=== PATIENT | female | born 1955 | race Caucasian/White ===

== ENCOUNTER → 2018-06-30 07:57 | Outpatient (CLI) | payer OTHER, SELFPAY ==
[2018-06-30 09:51] LABS: Add Manual Diff / Slide Review NO; Basophils Percent Auto 0.8 % (0-2); Hemoglobin 14.6 g/dL (12.0-16.0); Lymphocytes Percent Auto 20.7 % (25-40); Mean Corpuscular HGB Conc 34.1 % (30-36); Mean Corpuscular Hemoglobin 31.8 PG (26-34); Mean Corpuscular Volume 93.4 fL (80-100); Monocytes Percent Auto 6.3 % (3-14); Neutrophils Absolute Auto 4600 /uL (3000-5900); Neutrophils Percent Auto 70.2 % (50-75); Platelet Count 288 X10^3/uL (150-400); White Blood Cell Count 6.6 X10^3/uL (4.5-11.0)
[2018-06-30 10:06] LABS: Alanine Aminotransferase 25 IU/L (9-52); Albumin Globulin Ratio 1.5 (1.0-2.8); Alkaline Phosphatase 66 U/L (38-126); Aspartate Aminotransferase 27 IU/L (14-36); BUN Creatinine Ratio 21.3 (6-22); Bilirubin Total 0.4 mg/dL (0.2-1.3); Blood Urea Nitrogen 17 mg/dL (7-17); Calcium 9.2 mg/dL (8.4-10.2); Carbon Dioxide 31 mmol/L (22-32); Chloride 104 mmol/L (98-107); Cholesterol 184 mg/dL (140-199); Estimated Glomerular Filt Rate > 60.0 mL/min (>60); Globulin 2.6 g/dL (1.7-4.1); Glucose 85 mg/dL (80-110); HDL Cholesterol 47 mg/dL (40-60); HEMOLYSIS < 15 (0-50); LDL Cholesterol Calculated 124 mg/dL (<100); Potassium 4.3 mmol/L (3.4-5.1); Sodium 141 mmol/L (137-145); Total Protein 6.6 g/dL (6.3-8.2); Triglycerides 63 mg/dL (35-150)
[2018-06-30 11:02] LABS: Free T4, Direct Thyroxine 1.02 ng/dL (0.78-2.19)
[2018-06-30 11:16] LABS: Thyroid Stimulating Hormone 1.34 uIU/mL (0.47-4.68)
== END ==
PROVIDERS: Physician Assistant; Family Provider Family Medicine; PCP Family Medicine; Visit Provider Family Medicine
DX: E03.9 Hypothyroidism, unspecified (principal); E78.5 Hyperlipidemia, unspecified; Z00.00 Encounter for general adult medical examination without abnormal findings
CPT/HCPCS: 36415; 80053; 80061; 84439; 84443; 85025

== ENCOUNTER 2018-09-01 07:59 | Day surgery (SDC) | payer OTHER, SELFPAY ==
[2018-09-01] VITALS (8 sets, daily range): BP systolic 92–120; BP diastolic 56–69; PULSE 60–73; RESP 13–18; TEMP 35.9–36.8; O2SAT 95–99; BMI 22.4
--- NOTE | 2018-09-01 | PATH_ITS ---
[facility] Accession Number: [id number] . 01 Material submitted: . CECAL POLYP X2 . 02 Diagnosis: Cecum, Polyps x2, Biopsy: Tubular adenoma. Sessile serrated adenoma. V/09/02/2018 . 02 Electronically signed: . Anny Gottlieb MD, Pathologist NPI- [id number] . 01 Gross description: . Received one formalin-filled container labeled with the patient's name and labeled cecal polyps x2. The specimen consists of two 0.3 to 0.5 cm portions of tissue. Entirely submitted in one cassette. ([facility] [place][id number]) /[facility] . 02 Pathologist provided ICD-10: D12.0 . 02 CPT . 641292 Specimen Comment: A duplicate report has been generated due to demographic updates. Performed at: 01 [facility] [address] [id number] MD Dung Zelaya MD Phone: [phone] Performed at: 02 [facility] [address] [place] [id number] MD Tong Barone MD Phone: [phone]
--- NOTE | 2018-09-01 08:14 | P.HP_ITS ---
History of Present Illness Date Patient Seen: 09/01/18 Chief complaint: colonoscopy [id number] Narrative: 62-year-old female who is here for colon polyp surveillance. The patient last had a colonoscopy 03/16/2009 at [facility] which revealed 2 tubular adenomas. She has a history of hypothyroidism otherwise no active GI issues Patient History Family & Social History Tobacco & Substance use: Smoking Status Never smoker alcohol intake never Meds Home Medications Medication Instructions Recorded Confirmed Type ASPIRIN (Aspirin EC) 81 mg PO #0 04/17/11 07/26/18 History FOLIC ACID/VIT A/VIT B1/VIT 1 tab PO Q DAY #0 04/17/11 07/26/18 History (#MULTIVITAMIN) levothyroxine [Levoxyl] 0.05 mg PO QDAY #90 tab 03/31/18 07/26/18 Rx vitamin b12 PO 05/05/18 07/26/18 History citalopram 40 mg tablet 40 mg PO QDAY #30 tab 06/24/18 07/26/18 Rx Allergies Allergy/AdvReac Type Severity Reaction Status Date / Time azithromycin [AZITHROMYCIN] Allergy Severe angioedema Verified 07/26/18 09:34 Review of Systems Review of Systems All systems reviewed & are unremarkable except as noted in HPI and below Exam Narrative Exam Narrative: General: Patient is well developed, not in apparent distress Cardiovascular: Regular rate and rhythm, no murmurs, rubs, or gallops; no evidence of edema; no palpable abdominal aortic aneurysm Gastrointestinal: Normoactive bowel sounds, soft, nontender, nondistended, no rebound tenderness, no hepatosplenomegaly, no evidence of hernia Assessment & Plan Plan: Assessment/Plan Narrative: 62-year-old female with hypothyroidism who is here for colon polyp surveillance after last colonoscopy in 2008 showed 2 tubular adenomas. No family history of colon cancer. Regarding the procedure(s), the risks and potential complications, benefits, and alternatives (including not doing the procedure) were discussed with the patient. The risks include but are not limited to bleeding, infection, perforation which may require surgical intervention, missed lesions, and adverse reactions to sedative medicines. After a question and answer period, the patient agreed to proceed with the procedure(s) and gives informed consent.
[2018-09-01] MEDS: SODIUM CHLORIDE 0.9% 1,000 ML 70 ML IV (08:28)
--- NOTE | 2018-09-01 08:53 | PM.OP.ENDO ---
Operative Date/Time/Diagnoses Date of procedure: 09/01/18 Procedure Notes Procedure in detail: Surgeon: Get Ortiz MD Procedure: Colonoscopy with polypectomy Preoperative diagnosis: Colon polyp surveillance; prior colonoscopy 2008 showed tubular adenomas Postoperative diagnosis: Colon polyps status post polypectomy, sigmoid diverticulosis, grade 1 internal hemorrhoids Medications: Conscious sedation using 4 mg IV of Midazolam and 150 mcg IV of Fentanyl Preanesthesia Assessment An H and P was performed/updated and the Px?s ASA class is 2. The procedure was discussed in detail with the patient. The potential risks and complications including infection, bleeding, missed lesions, perforation, need for surgery in case of perforation, prolonged hospital stay, and were explained. A brief question and answer period was allotted and once all questions were answered, informed consent was obtained. The patient was brought back to the procedure room and placed on standard monitoring. The patient?s vital signs were monitored continuously throughout the entire procedure. Prior to starting, a timeout was performed to confirm the patient?s identity, allergies, medications, and procedure. Procedure in detail The patient was placed in left lateral decubitus position and once adequate sedation was obtained a ALEJANDRO was performed. The digital rectal examination did not reveal any palpable lesions. The tip of the colonoscope was placed in the anal canal and advanced without difficulty all the way to the cecum which was identified by the appendiceal orifice and the ileocecal valve. Careful examination of all martinez of the colon was performed with irrigation of a residual stool In the cecum, there was note of a 5 mm sessile polyp which was removed by means of cold snare. Excision and retrieval were complete with minimal bleeding. In the cecum, there was note of a 2 mm sessile polyp which was removed by means of cold Jumbo forceps. Excision and retrieval were complete with minimal bleeding. In the sigmoid colon, there was note of few small diverticula. Retroflexion was performed in the rectum which revealed grade 1 internal hemorrhoids. The patient tolerated the procedure well and will be brought back to the recovery area to be discharged once criteria are met. The prep was judged to be good and adequate to identify polyps less than 5 mm. The withdrawal time was 10 min. The total physician intraservice time was 18 min. Complications There were no complications and estimated blood loss was minimal. Recommendations: Resume previous diet Continue outPx medications Follow up pathology results Repeat colonoscopy in 5 years An emergency contact number was given to the patient for any complications related to the procedure
[2018-09-01] MEDS: fentaNYL 250 MCG/5 ML INJ IV (09:09)
[2018-09-01] MEDS: MIDAZOLAM 5 MG/5 ML VIAL IV (09:10)
--- NOTE | 2018-09-01 09:21 | P.DS_ITS ---
History of Present Illness Chief complaint: colonoscopy [id number] Narrative: 62-year-old female who is here for colon polyp surveillance. The patient last had a colonoscopy 03/16/[address] [facility] which revealed 2 tubular adenomas. She has a history of hypothyroidism otherwise no active GI issues Discharge Providers Primary care physician: Lakeisha Truong DO Discharge provider: Get Ortiz MD Exam Vital Signs (past 8 hours): - 09/01/18 08:30 09/01/18 09:13 Temperature 98.2 F 97.2 F L Pulse Rate 69 73 Respiratory Rate 15 15 Blood Pressure 111/69 96/60 Pulse Oximetry 98 95 Oxygen Delivery Method Room Air Narrative Exam Narrative: General: Patient is well developed, not in apparent distress Cardiovascular: Regular rate and rhythm, no murmurs, rubs, or gallops; no evidence of edema; no palpable abdominal aortic aneurysm Gastrointestinal: Normoactive bowel sounds, soft, nontender, nondistended, no rebound tenderness, no hepatosplenomegaly, no evidence of hernia Discharge Plan Discharge Plan Patient Disposition: Home Discharge Med Rec/Prescriptions Prescriptions: Continue vitamin b12 PO RF: 0 ASPIRIN (Aspirin EC) 81 mg PO Qty: 0 RF: 0 FOLIC ACID/VIT A/VIT B1/VIT (#MULTIVITAMIN) 1 tab PO Q DAY Qty: 0 RF: 0 levothyroxine [Levoxyl] 50 mcg tablet 0.05 mg PO QDAY Qty: 90 RF: 2 citalopram [Celexa] 40 mg tablet 40 mg PO QDAY Qty: 30 RF: 3 Discharge Orders: Discharge (Order); Ordered 09/01/18 Ordered By: Get Ortiz Provider Discharge Instructions Diet: Diet as Tolerated Visit Report/Discharge Packet Stand Alone Forms: Surgery Discharge Discharge Data Primary Care Provider: Lakeisha Truong Attending Provider: Get Ortiz
== END 2018-09-01 10:51 | disposition home or self-care (01) ==
PROVIDERS: PCP Family Medicine; Visit Provider Internal Medicine Gastroenterology
PROC: 0DJD8ZZ Inspection of Lower Intestinal Tract, Via Natural or Artificial Opening Endoscopic (ICD-10-PCS; CPT 45378; principal; 2018-09-01 09:00)
DX: Z86.010 Personal history of colon polyps (principal); K57.30 Diverticulosis of large intestine without perforation or abscess without bleeding; K64.0 First degree hemorrhoids; D12.0 Benign neoplasm of cecum
CPT/HCPCS: 45385; 45380; J2250; J3010

== ENCOUNTER → 2018-09-03 07:10 | Outpatient (CLI) | payer OTHER, SELFPAY ==
--- NOTE | 2018-09-03 | DI.MG.S_ITS ---
BILATERAL DIGITAL SCREENING MAMMOGRAM 3D/2D WITH CAD POST LUMPECTOMY: 09/03/2018 CLINICAL: Routine screening. Personal history of right breast cancer. Comparison is made to exams dated: 02/20/2017 mammogram, 06/13/2015 mammogram, and 06/12/2014 mammogram - [facility]. The tissue of both breasts is heterogeneously dense. This may lower the sensitivity of mammography. Current study was also evaluated with a Computer Aided Detection (CAD) system. There are benign post operative findings in the right breast. No significant masses, calcifications, or other findings are seen in either breast. There has been no significant interval change. IMPRESSION: There is no mammographic evidence of malignancy. A 1 year screening mammogram is recommended.(09/04/2019) This exam was interpreted at Station ID: [id number]. NOTE: For mammograms, a report in lay terms will be sent to the patient. Approximately 15% of breast malignancies will not be visualized mammographically. In the management of a palpable breast mass, a negative mammogram must not discourage biopsy of a clinically suspicious lesion. Electronically Signed By: Vane camarillo/wellington:09/03/2018 15:13:16 copy to: LOU PACE letter sent: Normal Exam ACR BI-RADS Category 2: Benign Finding(s) 3342F
== END ==
PROVIDERS: PCP Family Medicine; Visit Provider Family Medicine
DX: Z12.31 Encounter for screening mammogram for malignant neoplasm of breast (principal); Z85.3 Personal history of malignant neoplasm of breast
CPT/HCPCS: 77063; 77067

== ENCOUNTER → 2019-07-12 09:27 | Outpatient (CLI) | payer OTHER, SELFPAY ==
[2019-07-12 10:04] LABS: Add Manual Diff / Slide Review NO; Basophils Absolute Auto 100 /uL (0-100); Eosinophils Absolute Auto 100 /uL (0-450); Hematocrit 43.4 % (36-46); Hemoglobin 14.7 g/dL (12.0-16.0); Lymphocytes Absolute Auto 1400 /uL (1100-4500); Lymphocytes Percent Auto 27.5 % (25-40); Mean Corpuscular HGB Conc 33.7 % (30-36); Mean Corpuscular Hemoglobin 31.5 PG (26-34); Mean Corpuscular Volume 93.3 fL (80-100); Monocytes Absolute Auto 400 /uL (0-900); Monocytes Percent Auto 7.1 % (3-14); Neutrophils Absolute Auto 3200 /uL (1500-7000); Neutrophils Percent Auto 62.4 % (50-75); Platelet Count 282 X10^3/uL (150-400); Red Blood Cell Count 4.66 X10^6/uL (4.0-5.2); Red Cell Distribution Width 13.1 % (11.6-14.8); White Blood Cell Count 5.1 X10^3/uL (4.5-11.0)
[2019-07-12 10:17] LABS: Appearance Urine UA CLEAR; Bilirubin Urine UA NEGATIVE (NEGATIVE); Color Urine UA YELLOW; Glucose Urine UA NEGATIVE (Negative); Ketones Urine UA NEGATIVE (NEGATIVE); Leukocyte Esterase Urine UA NEGATIVE (NEGATIVE); Nitrite Urine UA NEGATIVE (Negative); Occult Blood Urine UA TRACE-LYSED (Negative); Protein Urine UA TRACE (Negative); Specific Gravity Urine UA 1.015 (1.000-1.035); Urobilinogen Urine UA 0.2 E.U./dL (0.2)
[2019-07-12 10:29] LABS: Alanine Aminotransferase 18 IU/L (9-52); Albumin Globulin Ratio 1.4 (1.0-2.8); Alkaline Phosphatase 66 U/L (38-126); Aspartate Aminotransferase 31 IU/L (14-36); BUN Creatinine Ratio 18.8 (6-22); Bilirubin Total 0.3 mg/dL (0.2-1.3); Blood Urea Nitrogen 15 mg/dL (7-17); Calcium 9.2 mg/dL (8.4-10.2); Carbon Dioxide 30 mmol/L (22-32); Chloride 104 mmol/L (98-107); Cholesterol 221 mg/dL (140-199); Estimated Glomerular Filt Rate > 60.0 mL/min (>60); Globulin 2.9 g/dL (1.7-4.1); Glucose 100 mg/dL (80-110); HDL Cholesterol 56 mg/dL (40-60); HEMOLYSIS < 15 (0-50); LDL Cholesterol Calculated 152 mg/dL (<100); Potassium 4.4 mmol/L (3.4-5.1); Sodium 138 mmol/L (137-145); Total Protein 6.9 g/dL (6.3-8.2); Triglycerides 66 mg/dL (35-150)
[2019-07-12 11:38] LABS: Free T4, Direct Thyroxine 0.84 ng/dL (0.78-2.19)
[2019-07-12 11:52] LABS: Thyroid Stimulating Hormone 1.27 uIU/mL (0.47-4.68)
== END ==
PROVIDERS: PCP Family Medicine; Visit Provider Family Medicine
DX: E03.9 Hypothyroidism, unspecified (principal); Z13.220 Encounter for screening for lipoid disorders; Z51.81 Encounter for therapeutic drug level monitoring
CPT/HCPCS: 36415; 80053; 80061; 81003; 84439; 84443; 84481; 85025

== ENCOUNTER → 2019-09-05 15:01 | Outpatient (CLI) | payer OTHER, SELFPAY | PROVIDERS: PCP Family Medicine; Visit Provider Family Medicine | DX: Z12.31 Encounter for screening mammogram for malignant neoplasm of breast (principal); Z53.9 Procedure and treatment not carried out, unspecified reason ==

== ENCOUNTER → 2019-09-19 09:59 | Outpatient (CLI) | payer OTHER, SELFPAY ==
--- NOTE | 2019-09-19 10:02 | DI.MG.S_ITS ---
BILATERAL DIGITAL DIAGNOSTIC MAMMOGRAM 3D/2D POST LUMPECTOMY: 09/19/2019 CLINICAL: Referring clinical provider's requisition states breast lump but does not specify a specific area of the breast. Patient cannot feel the lump herself and is not sure where the reported palpable breast lump is located, but believes it was in the upper outer quadrant of the right breast. Comparison is made to exams dated: 09/03/2018 mammogram, 02/20/2017 mammogram, and 06/13/2015 mammogram - [facility]. The tissue of both breasts is heterogeneously dense. This may lower the sensitivity of mammography. Referring clinical provider's requisition states breast lump but does not specify a specific area of the breast. Patient cannot feel the lump herself and is not sure where the reported palpable breast lump is located, but believes it was in the upper outer quadrant of the right breast. There are postsurgical changes of the medial right breast. There is no convincing suspicious mass or abnormality of the upper outer right breast on mammography. There are bilateral vascular calcifications. No other significant masses, calcifications, or other findings are seen in either breast. IMPRESSION: INCOMPLETE: NEEDS ADDITIONAL IMAGING EVALUATION Postsurgical changes of the medial right breast, with no mammographic abnormality to correlate with the site of the patient's reported focal palpable abnormality of the upper outer quadrant of the right breast. Targeted diagnostic ultrasound recommended for further evaluation, which will be performed immediately following this exam. This exam was interpreted at Station ID: [id number]. NOTE: For mammograms, a report in lay terms will be sent to the patient. Approximately 15% of breast malignancies will not be visualized mammographically. In the management of a palpable breast mass, a negative mammogram must not discourage biopsy of a clinically suspicious lesion. Electronically Signed By: Delvis Oneill M.D. ecl/:09/19/2019 10:49:45 copy to: LOU CALERO BI-RADS Category 0: Incomplete [id number]
--- NOTE | 2019-09-19 10:02 | DI.US.S_ITS ---
LIMITED ULTRASOUND OF RIGHT BREAST: 09/19/2019 CLINICAL: Referring clinical provider's requisition states breast lump but does not specify a specific area of the breast. Patient cannot feel the lump herself and is not sure where the reported palpable breast lump is located, but believes it was in the upper outer quadrant of the right breast. Comparison is made to exams dated: 09/19/2019 mammogram, 09/03/2018 mammogram, 02/20/2017 mammogram, 06/13/2015 mammogram, 06/12/2014 mammogram, and 05/19/2013 mammogram - [facility]. Color flow and real-time ultrasound of the right breast upper outer quadrant were performed. Kidd scale images of the real-time examination were reviewed. Targeted ultrasound was performed of the upper outer quadrant of the right breast in the region of the patient's reported focal palpable area of concern. No underlying breast mass or abnormality is identified. IMPRESSION: NEGATIVE 1) No ultrasound findings to explain patient's reported focal palpable area of concern in the upper outer quadrant of the right breast. Recommend clinical follow-up for further evaluation and management of the patient's reported symptoms. 2) There is no sonographic evidence of malignancy in the imaged areas of the right breast. Return to annual screening mammography schedule is recommended. The patient is advised to monitor her breasts and to return sooner for re-evaluation should she feel anything grow or change. This exam was interpreted at Station ID: [id number]. Electronically Signed By: Delvis Oneill M.D. ecl/:09/19/2019 11:35:26 copy to: LOU PAEC letter sent: Clinical Evaluation Ultrasound BI-RADS: 1 Negative
== END ==
PROVIDERS: Family Provider Internal Medicine Hematology & Oncology; PCP Family Medicine; Visit Provider Family Medicine
DX: R92.8 Other abnormal and inconclusive findings on diagnostic imaging of breast (principal); N63.0 Unspecified lump in unspecified breast; Z85.3 Personal history of malignant neoplasm of breast
CPT/HCPCS: 76642; 77066; G0279

== ENCOUNTER → 2019-11-03 13:59 | Outpatient (CLI) | payer OTHER, SELFPAY ==
--- NOTE | 2019-11-03 14:01 | DI.US.S_ITS ---
PROCEDURE: US ABDOMEN LIMITED INDICATIONS: DISCOMFORT AND SWELLING INFERIOR TO RIGHT BREAST TECHNIQUE: Real-time focused scanning was performed of the abdomen, with image documentation. COMPARISON: None. FINDINGS: No right upper quadrant anterior abdominal wall fluid collections or masses seen in the region of interest IMPRESSION: No sonographic abnormality. Dictated by: Kris ROBLEDO Interpreted: Benjamín Zhou MD on 11/03/2019 at 15:33 Approved by: Ying Hearn MD, PhD on 11/04/2019 at 9:21
== END ==
PROVIDERS: PCP Family Medicine; Visit Provider Nurse Practitioner
DX: R07.81 Pleurodynia (principal); N64.4 Mastodynia; Z85.3 Personal history of malignant neoplasm of breast
CPT/HCPCS: 76705

== ENCOUNTER → 2019-12-01 10:26 | Outpatient (CLI) | payer OTHER, SELFPAY ==
[2019-12-01 11:30] LABS: Alanine Aminotransferase 17 IU/L (<35); Albumin 4.1 g/dL (3.5-5.0); Albumin Globulin Ratio 1.7 (1.0-2.8); Alkaline Phosphatase 68 U/L (38-126); Aspartate Aminotransferase 26 IU/L (14-36); BUN Creatinine Ratio 17.8 (6-22); Bilirubin Total 0.5 mg/dL (0.2-1.3); Blood Urea Nitrogen 16 mg/dL (7-17); Calcium 9.8 mg/dL (8.4-10.2); Carbon Dioxide 32 mmol/L (22-32); Chloride 101 mmol/L (98-107); Cholesterol 169 mg/dL (140-199); Estimated Glomerular Filt Rate > 60.0 mL/min (>60); Globulin 2.4 g/dL (1.7-4.1); Glucose 94 mg/dL (80-110); HDL Cholesterol 56 mg/dL (40-60); HEMOLYSIS < 15 (0-50); LDL Cholesterol Calculated 96 mg/dL (<100); Potassium 4.1 mmol/L (3.4-5.1); Sodium 139 mmol/L (137-145); Total Protein 6.5 g/dL (6.3-8.2); Triglycerides 86 mg/dL (35-150)
== END ==
PROVIDERS: PCP Family Medicine; Visit Provider Family Medicine
DX: E78.5 Hyperlipidemia, unspecified (principal); Z79.899 Other long term (current) drug therapy
CPT/HCPCS: 36415; 80053; 80061

== ENCOUNTER → 2020-05-11 08:16 | Outpatient (CLI) | payer OTHER, SELFPAY ==
[2020-05-11 09:49] LABS: Alanine Aminotransferase 18 IU/L (<35); Albumin 4.1 g/dL (3.5-5.0); Albumin Globulin Ratio 1.6 (1.0-2.8); Alkaline Phosphatase 72 U/L (38-126); Aspartate Aminotransferase 29 IU/L (14-36); BUN Creatinine Ratio 18.6 (6-22); Bilirubin Total 0.6 mg/dL (0.2-1.3); Blood Urea Nitrogen 16 mg/dL (7-17); Calcium 9.6 mg/dL (8.4-10.2); Carbon Dioxide 28 mmol/L (22-32); Chloride 105 mmol/L (98-107); Cholesterol 157 mg/dL (140-199); Estimated Glomerular Filt Rate > 60.0 mL/min (>60); Globulin 2.6 g/dL (1.7-4.1); Glucose 91 mg/dL (80-110); HDL Cholesterol 46 mg/dL (40-60); HEMOLYSIS < 15 (0-50); LDL Cholesterol Calculated 90 mg/dL (<100); Sodium 138 mmol/L (137-145); Total Protein 6.7 g/dL (6.3-8.2); Triglycerides 103 mg/dL (35-150)
== END ==
PROVIDERS: PCP Family Medicine; Referring Provider Family Medicine; Visit Provider Family Medicine
DX: Z51.81 Encounter for therapeutic drug level monitoring (principal)
CPT/HCPCS: 36415; 80053; 80061

== ENCOUNTER → 2020-09-20 07:57 | Outpatient (CLI) | payer OTHER, SELFPAY ==
--- NOTE | 2020-09-20 | DI.MG.S_ITS ---
BILATERAL DIGITAL SCREENING MAMMOGRAM 3D/2D WITH CAD POST LUMPECTOMY: 09/20/2020 CLINICAL: Routine screening. Personal history of right breast cancer. Comparison is made to exams dated: 09/19/2019 mammogram, 09/03/2018 mammogram, and 02/20/2017 mammogram - [facility]. The tissue of both breasts is heterogeneously dense. This may lower the sensitivity of mammography. Current study was also evaluated with a Computer Aided Detection (CAD) system. There are benign post operative findings in the right breast. No significant masses, calcifications, or other findings are seen in either breast. There has been no significant interval change. IMPRESSION: BENIGN There is no mammographic evidence of malignancy. A 1 year screening mammogram is recommended. This exam was interpreted at Station ID: [id number]. NOTE: For mammograms, a report in lay terms will be sent to the patient. Approximately 15% of breast malignancies will not be visualized mammographically. In the management of a palpable breast mass, a negative mammogram must not discourage biopsy of a clinically suspicious lesion. Electronically Signed By: Gus echols/wellington:09/20/2020 09:05:04 copy to: LOU PACE letter sent: Normal Exam ACR BI-RADS Category 2: Benign Finding(s) 3342F
[2020-09-20 08:49] LABS: Add Manual Diff / Slide Review NO; Basophils Absolute Auto 0 /uL (0-100); Basophils Percent Auto 0.9 % (0-2); Eosinophils Absolute Auto 100 /uL (0-450); Eosinophils Percent Auto 1.9 % (2-4); Hemoglobin 14.9 g/dL (12.0-16.0); Lymphocytes Absolute Auto 1400 /uL (1100-4500); Lymphocytes Percent Auto 24.3 % (25-40); Mean Corpuscular HGB Conc 34.6 % (30-36); Mean Corpuscular Hemoglobin 31.9 PG (26-34); Mean Corpuscular Volume 92.2 fL (80-100); Monocytes Absolute Auto 400 /uL (0-900); Neutrophils Absolute Auto 3900 /uL (1500-7000); Neutrophils Percent Auto 65.9 % (50-75); Platelet Count 295 X10^3/uL (150-400); Red Blood Cell Count 4.67 X10^6/uL (4.0-5.2); White Blood Cell Count 5.8 X10^3/uL (4.5-11.0)
[2020-09-20 09:44] LABS: Vitamin D 25 Hydroxy (D3) 35.4 ng/mL (30.0-100.0)
[2020-09-20 09:45] LABS: Free T3, Triiodothyronine Free 2.53 pg/mL (2.77-5.27); Free T4, Direct Thyroxine 1.02 ng/dL (0.78-2.19)
[2020-09-20 15:04] LABS: Hep C Virus Ab w/Reflex Quant NEGATIVE s/c (NEGATIVE)
== END ==
PROVIDERS: Nurse Practitioner; PCP Family Medicine; Referring Provider Family Medicine; Visit Provider Family Medicine
DX: Z12.31 Encounter for screening mammogram for malignant neoplasm of breast (principal); Z85.3 Personal history of malignant neoplasm of breast; Z11.59 Encounter for screening for other viral diseases; E03.9 Hypothyroidism, unspecified; E55.9 Vitamin D deficiency, unspecified; Z91.89 Other specified personal risk factors, not elsewhere classified
CPT/HCPCS: 36415; 77063; 77067; 82306; 84439; 84443; 84481; 85025; 86803

== ENCOUNTER → 2020-10-01 08:53 | Outpatient (CLI) | payer OTHER, SELFPAY ==
[2020-10-03 15:53] LABS: Fecal Immunochemical Test Negative (Negative)
== END ==
PROVIDERS: PCP Family Medicine; Referring Provider Family Medicine; Visit Provider Family Medicine
DX: Z12.11 Encounter for screening for malignant neoplasm of colon (principal)
CPT/HCPCS: 82274

== ENCOUNTER → 2020-11-12 09:19 | Outpatient (CLI) | payer OTHER, SELFPAY ==
[2020-11-12 10:42] LABS: Cholesterol 186 mg/dL (140-199); HDL Cholesterol 42 mg/dL (40-60); LDL Cholesterol Calculated 116 mg/dL (<100); Triglycerides 138 mg/dL (35-150)
[2020-11-12 11:00] LABS: Free T3, Triiodothyronine Free 4.05 pg/mL (2.77-5.27); Free T4, Direct Thyroxine 1.65 ng/dL (0.78-2.19)
[2020-11-12 11:14] LABS: Thyroid Stimulating Hormone < 0.015 uIU/mL (0.47-4.68)
== END ==
PROVIDERS: PCP Family Medicine; Referring Provider Family Medicine; Visit Provider Family Medicine
DX: E78.5 Hyperlipidemia, unspecified (principal); E89.0 Postprocedural hypothyroidism
CPT/HCPCS: 36415; 80061; 84439; 84443; 84481

== ENCOUNTER → 2021-02-27 13:39 | Outpatient (CLI) | payer OTHER, SELFPAY ==
[2021-02-27] MEDS: COVID-19 VACC #1, MRNA(MOD) 100 MCG/0.5 ML VIAL IM (13:48)
== END ==
PROVIDERS: PCP Family Medicine; Visit Provider Internal Medicine
DX: Z23 Encounter for immunization (principal)
CPT/HCPCS: 0011A; 91301

== ENCOUNTER → 2021-03-27 10:46 | Outpatient (CLI) | payer OTHER, SELFPAY ==
[2021-03-27] MEDS: COVID-19 VACC #2, MRNA(MOD) 100 MCG/0.5 ML VIAL IM (10:52)
== END ==
PROVIDERS: PCP Family Medicine; Visit Provider Internal Medicine
DX: Z23 Encounter for immunization (principal)
CPT/HCPCS: 0012A; 91301

== ENCOUNTER → 2021-04-05 10:11 | Outpatient (CLI) | payer OTHER, SELFPAY ==
[2021-04-05 10:42] LABS: Add Manual Diff / Slide Review NO; Basophils Absolute Auto 0 /uL (0-100); Basophils Percent Auto 0.6 % (0-2); Eosinophils Absolute Auto 100 /uL (0-450); Eosinophils Percent Auto 1.3 % (2-4); Hematocrit 40.2 % (36-46); Hemoglobin 13.7 g/dL (12.0-16.0); Lymphocytes Absolute Auto 1800 /uL (1100-4500); Mean Corpuscular Volume 91.4 fL (80-100); Monocytes Absolute Auto 400 /uL (0-900); Monocytes Percent Auto 6.8 % (3-14); Neutrophils Absolute Auto 3600 /uL (1500-7000); Neutrophils Percent Auto 61.3 % (50-75); Platelet Count 289 X10^3/uL (150-400); White Blood Cell Count 5.9 X10^3/uL (4.5-11.0)
[2021-04-05 11:05] LABS: Alanine Aminotransferase 18 IU/L (<35); Albumin 3.8 g/dL (3.5-5.0); Albumin Globulin Ratio 1.5 (1.0-2.8); Alkaline Phosphatase 78 U/L (38-126); Aspartate Aminotransferase 25 IU/L (14-36); BUN Creatinine Ratio 16.5 (6-22); Bilirubin Total 0.5 mg/dL (0.2-1.3); Blood Urea Nitrogen 14 mg/dL (7-17); Calcium 9.8 mg/dL (8.4-10.2); Carbon Dioxide 28 mmol/L (22-32); Chloride 104 mmol/L (98-107); Cholesterol 177 mg/dL (140-199); Estimated Glomerular Filt Rate > 60.0 mL/min (>60); Globulin 2.6 g/dL (1.7-4.1); Glucose 94 mg/dL (80-110); HDL Cholesterol 42 mg/dL (40-60); HEMOLYSIS < 15 (0-50); LDL Cholesterol Calculated 114 mg/dL (<100); Potassium 4.2 mmol/L (3.4-5.1); Sodium 138 mmol/L (137-145); Total Protein 6.4 g/dL (6.3-8.2); Triglycerides 103 mg/dL (35-150)
[2021-04-05 11:17] LABS: Free T3, Triiodothyronine Free 4.34 pg/mL (2.77-5.27); Free T4, Direct Thyroxine 1.39 ng/dL (0.78-2.19)
[2021-04-05 11:36] LABS: Thyroid Stimulating Hormone < 0.015 uIU/mL (0.47-4.68)
== END ==
PROVIDERS: PCP Family Medicine; Referring Provider Family Medicine; Visit Provider Family Medicine
DX: E78.5 Hyperlipidemia, unspecified (principal); E89.0 Postprocedural hypothyroidism
CPT/HCPCS: 36415; 80053; 80061; 84439; 84443; 84481; 85025

== ENCOUNTER 2021-05-31 17:35 | Emergency (ER) | payer OTHER, SELFPAY ==
[2021-05-31 17:56] VITALS: BP 103/65; PULSE 83; RESP 20; TEMP 37.7; O2SAT 98; BMI 23.6
[2021-05-31 18:29] LABS: COVID19 -Nasal RAPID Negative (Negative)
--- NOTE | 2021-05-31 18:32 | DI.RAD.S_ITS ---
PROCEDURE: XR CHEST 2V INDICATIONS: fever, sob, afraid she inhaled chicken coop dust TECHNIQUE: 2 views of the chest were acquired. COMPARISON: [facility], , CHEST 2 VIEW, 02/07/2011, 14:12. FINDINGS: Surgical changes and devices: Surgical clips are demonstrated projecting over the right hemithorax. Lungs and pleura: Lungs are clear. No acute consolidation. No pleural effusions or pneumothorax. Mediastinum: Mediastinal contours are normal. Heart size is normal. Bones and chest wall: No suspicious bony abnormalities. Soft tissues appear unremarkable. IMPRESSION: 1. No acute cardiopulmonary disease. Dictated by: Dung Franklin M.D. on 05/31/2021 at 20:47 Approved by: Dung Franklin M.D. on 05/31/2021 at 20:48
--- NOTE | 2021-05-31 22:15 | ED_ITS ---
HPI - Fever General Chief Complaint: Fever Stated Complaint: fever, feels like the flu Time Seen by Provider: 05/31/21 18:02 Source: patient Mode of arrival: Family Vehicle Limitations: no limitations History of Present Illness HPI Narrative: 65-year-old female nonsmoker with history of hyperlipidemiapresents with her with a chief complaint of a day or to feeling feverish with runny nose, nasal congestion, sinus pressure, body aches and ear fullness. She has had some dry and hacking cough but denies any shortness of breath. She denies any recent travel or exposure to persons known to have COVID. She has had no nausea, vomiting or diarrhea. She denies any change in smell or taste. Related Data Home Medications Medication Instructions Recorded Confirmed vitamin b12 PO 05/05/18 04/11/21 omega-3 fatty acids 1,000 mg 1,000 mg PO DAILY 08/05/19 04/11/21 capsule (Fish Oil Concentrate) ginkgo biloba 40 mg tablet 40 mg PO BID tab 09/27/20 04/11/21 Previous Rx's Medication Instructions Recorded atorvastatin 10 mg tablet See Rx Instructions .ROUTE 06/01/20 .COMPLEX #90 tab citalopram 40 mg tablet (Celexa) 40 mg PO QDAY #90 tab 07/25/20 levothyroxine 100 mcg tablet See Rx Instructions .ROUTE 03/27/21 .COMPLEX #90 tab Allergies Allergy/AdvReac Type Severity Reaction Status Date / Time azithromycin [AZITHROMYCIN] Allergy Severe angioedema Verified 05/31/21 17:56 Review of Systems Review of Systems Narrative: GENERAL: see HPI HEENT: see HPI RESPIRATORY: see HPI CARDIOVASCULAR: Denies chest pain, palpitations, orthopnea, edema, GASTROINTESTINAL: Denies nausea, vomiting, abdominal pain, diarrhea, constipation, melena. : Denies dysuria, frequency, incontinence, hematuria, urinary retention. MUSCULOSKELETAL: denies weakness, joint pain, or bony pain SKIN: Denies rash, skin lesions, or other NEUROLOGIC: Denies weakness, headache, numbness, change in speech, confusion, seizures, incoordination. PSYCHIATRIC: No concerning psychosocial issues. 12 point review of systems is negative except for those stated above Patient History Medical History Allergic rhinitis Basal cell carcinoma Breast cancer (~03/2011) Chronic neck pain Depression Encounter for annual physical exam Encounter for HCV screening test for high risk patient Hyperlipidemia Hypothyroidism Melanoma (2003) Screen for colon cancer Vitamin D deficiency Surgical History History of partial mastectomy of right breast (~04/2011) History of thyroidectomy (~2003) History of tonsillectomy and adenoidectomy (1959) Hx of hammer toe correction (1994) Hx of melanoma excision (2003) Status post breast biopsy Family History Father Brain cancer Skin cancer Mother Angina of effort Social History household members: spouse Smoking Status: Never smoker second hand exposure: No alcohol intake: never substance use type: does not use Smoking Status: Never smoker alcohol intake frequency: 0-2 drinks per day Substance Use Type: does not use Exam Narrative Exam Narrative: GENERAL: [age] year old patient appears stated age. Well-developed patient, in mild distress. HEAD: Atraumatic. Normocephalic. EYES: Pupils equal round and reactive. Extraocular motions intact. No scleral i cterus. No injection or drainage. ENT: clear drainage bilaterally with mild posterior nasal drainage. Throat without erythema, tonsillar hypertrophy or exudate. Airway patent. NECK: Trachea midline. Non tender CARDIOVASCULAR: Regular rate and rhythm without murmurs, gallops, or rubs. RESPIRATORY: Clear to auscultation. Breath sounds equal bilaterally. No wheezes, rales, or rhonchi. GASTROINTESTINAL: Abdomen soft, non-tender, nondistended. EXTREMITIES: No edema or joint tenderness. BACK: Nontender without deformity or crepitance. No flank tenderness. NEURO: AOx3. SKIN: No rash or erythema of visible areas Initial Vital Signs Initial Vital Signs: Vital Signs Temperature 99.9 F H 05/31/21 17:56 Pulse Rate 83 05/31/21 17:56 Respiratory Rate 20 05/31/21 17:56 Blood Pressure 103/65 05/31/21 17:56 Pulse Oximetry 98 05/31/21 17:56 Course Orders Ordered: ED Orders 05/31/21 18:04 COVID19 -Nasal swab/Pre-Proc Stat 05/31/21 18:32 XR chest 2V Stat Vital Signs Vital signs: Vital Signs - 8 hr 05/31/21 17:56 Temperature 99.9 F H Pulse Rate 83 Respiratory Rate 20 Blood Pressure 103/65 Pulse Oximetry 98 MDM - Fever Lab Data Labs: Lab Results 05/31/21 Range/Units 18:04 SARS-CoV-2 (PCR) Negative (Negative) Imaging Data Chest x-ray: Radiologist's Impression: [address] [id number] ReportSigned Patient: Chana TalamantesMR#: [id number]: [id number]:[id number]/Sex: 65 / FDate of Service: 05/31/21Loc: EDAccession Number: [id number] Procedure: XR chest 2V Ordering Provider: Bethel Samuel D.O. PROCEDURE: XR CHEST 2V INDICATIONS: fever, sob, afraid she inhaled chicken coop dust TECHNIQUE: 2 views of the chest were acquired. COMPARISON: [facility], CHEST 2 VIEW, 02/07/2011, 14:12. FINDINGS: Surgical changes and devices: Surgical clips are demonstrated projecting over the right hemithorax. Lungs and pleura: Lungs are clear. No acute consolidation. No pleural effusions or pneumothorax. Mediastinum: Mediastinal contours are normal. Heart size is normal. Bones and chest wall: No suspicious bony abnormalities. Soft tissues appear unremarkable. IMPRESSION: 1. No acute cardiopulmonary disease. Dictated by: Dung Franklin M.D. on 05/31/2021 at 20:47 Approved by: Dung Franklin M.D. on 05/31/2021 at 20:48 [facility] Narrative Medical decision making narrative: patient appears quite well, has a very reassuring exam and vital signs. Chest x-ray is clear, COVID is negative. Her widespread mild symptoms are most likely due to a viral upper respiratory infection. She shows no sign of sepsis, has no oxygen requirements and is safe for discharge. She is in agreement with and understands the diagnosis and plan. Return precautions given and questions answered Discharge Plan Departure Patient Disposition: Home Clinical Impression: Upper respiratory infection, viral Instructions: DI for Viral Upper Respiratory Infection -- Adult Activity Restrictions/Additional Instructions: *You have been diagnosed with [viral upper respiratory infection ] *What to do: *Please continue to take your regular medications as directed. *please consider use of the over the counter medications we discussed such as cough/cold medications with an antihistamine and decongestant *Please follow up with your primary care provider in 2-3 days, call for an appointment. Let them know you were seen in the Emergency Department and that we ask that you be seen in follow up. We will electronically transmit a record of today's note if your PCP is in our system *If you do not have a primary care provider please contact the [facility] Resource line at [phone]. They will ask some questions about your medical history and help get you set up with a doctor in the community. *Return to Emergency Department if you should have any new, worsening or concerning symptoms, such as [fever greater than 101 F, shaking chills, worsening pain, persistent vomiting or other bothersome symptoms] Prescriptions: No Action vitamin b12 PO RF: 0 atorvastatin 10 mg tablet See Rx Instructions .ROUTE .COMPLEX Qty: 90 RF: 3 Hold Instructions: Home Medication placed on hold at Doctor's office citalopram [Celexa] 40 mg tablet 40 mg PO QDAY Qty: 90 RF: 3 levothyroxine 100 mcg tablet See Rx Instructions .ROUTE .COMPLEX Qty: 90 RF: 0 omega-3 fatty acids [Fish Oil Concentrate] 1,000 mg capsule 1,000 mg PO DAILY RF: 0 ginkgo biloba 40 mg tablet 40 mg PO BID RF: 0 Referrals: Francis Cuenca DO [Primary Care Provider] -
== END 2021-05-31 22:40 | disposition home or self-care (01) ==
PROVIDERS: Emergency Provider Emergency Medicine; PCP Family Medicine
DX: J06.9 Acute upper respiratory infection, unspecified (principal); Z20.822 Contact with and (suspected) exposure to COVID-19
CPT/HCPCS: 71046; 87635; 99281; 99283; C9803

== ENCOUNTER → 2021-10-23 09:22 | Outpatient (CLI) | payer MEDICARE, OTHER, SELFPAY ==
--- NOTE | 2021-10-23 | DI.MG.S_ITS ---
BILATERAL DIGITAL SCREENING MAMMOGRAM 3D/2D WITH CAD POST LUMPECTOMY: 10/23/2021 CLINICAL: Routine screening. Personal history of right breast cancer. Comparison is made to exams dated: 09/19/2019 mammogram, 09/03/2018 mammogram, and 02/20/2017 mammogram - [facility]. The tissue of both breasts is heterogeneously dense. This may lower the sensitivity of mammography. Current study was also evaluated with a Computer Aided Detection (CAD) system. There are benign post operative findings in the right breast. No significant masses, calcifications, or other findings are seen in either breast. There has been no significant interval change. IMPRESSION: BENIGN There is no mammographic evidence of malignancy. A 1 year screening mammogram is recommended. This exam was interpreted at Station ID: [id number]. NOTE: For mammograms, a report in lay terms will be sent to the patient. Approximately 15% of breast malignancies will not be visualized mammographically. In the management of a palpable breast mass, a negative mammogram must not discourage biopsy of a clinically suspicious lesion. Electronically Signed By: Damian Beck M.D., jr/wellington:10/23/2021 12:30:14 copy to: LOU PACE letter sent: Normal Exam ACR BI-RADS Category 2: Benign Finding(s) 3342F
== END ==
PROVIDERS: PCP Family Medicine; Referring Provider Family Medicine; Visit Provider Family Medicine
DX: Z12.31 Encounter for screening mammogram for malignant neoplasm of breast (principal); Z80.3 Family history of malignant neoplasm of breast
CPT/HCPCS: 77063; 77067

== ENCOUNTER 2022-03-05 10:30 | Outpatient (RCR) | payer MEDICARE, OTHER, SELFPAY ==
--- NOTE | 2021-12-17 16:18 | PT.OIE ---
Current Diagnoses Foreign body in other parts of alimentary tract, initial encounter (12/17/21) Past Medical History (Last Updated 12/06/21 @ 08:29 by Francis Cuenca DO) Allergic rhinitis Basal cell carcinoma Breast cancer (~03/2011) Chronic neck pain Depression Encounter for annual physical exam Encounter for HCV screening test for high risk patient History of partial mastectomy of right breast (~04/2011) History of thyroidectomy (~2003) History of tonsillectomy and adenoidectomy (1959) Hx of hammer toe correction (1994) Hx of melanoma excision (2003) Hyperlipidemia Hypothyroidism Melanoma (2003) Muscle strain Screen for colon cancer Vitamin D deficiency Past Surgical History (Last Reviewed 06/01/21 @ 17:49 by Bethel Samuel DO) History of partial mastectomy of right breast (~04/2011) History of thyroidectomy (~2003) History of tonsillectomy and adenoidectomy (1959) Hx of hammer toe correction (1994) Hx of melanoma excision (2003) Status post breast biopsy Visit Care Team Role Provider Type Francis Cuenca DO Attending Provider Physician Family Provider Primary Care Provider Referring Provider Specialty: [facility] Address: [address] [place] [address] Email: Physical Therapy Initial Evaluation PT-OP-A Visit Information Start: 12/17/21 09:10 Freq: Status: Active Protocol: Document 12/17/21 10:30 AW (Rec: 12/17/21 10:31 AW [id number]) Out-Patient Physical Therapy Visit Information Visit Information Visit Type Initial Evaluation Visit Start Time 09:45 Visit Stop Time 10:30 Total Visit Minutes 45 Visit Number 1 Evaluation Information Evaluation Date 12/17/21 PT-OP-B Current Condition Start: 12/17/21 09:10 Freq: Status: Active Protocol: Document 12/17/21 10:30 AW (Rec: 12/17/21 10:31 AW [id number]) Current Condition History of Current Condition Onset Date September 2021 Current Complaints right shoulder pain History of Current Condition Chana was pruning with long loppers ~45 minutes in early September. She noticed feeling wimpy and started to have pain later that day. She had neck, jaw, shoulder, and collarbone pain. She had difficulty swallowing. All symptoms other than shoulder pain dissipated within a day. She has history of cervical DDD and notes she hasn't been working out like she used to before COV. 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 She then noticed her axillary lymph nodes felt painful and lumpier than usual . Ice and heat have been somewhat effective. She has had one dry needling appointment with Dr. Cuenca and plans to do more. Prior Treatments and Tests No imaging. Dry needling one treatment on 12/06 - somewhat effective. Hopes to keep interventions as conservative as possible Future Testing and Treatments Planned Pt likely to continue with dry needling Treatment Goals Patient/Caregiver Goals Walking more. Doing more. Puttering around the yard and gardening without pain Prior Functional Status Baseline Function- ADL's Independent Baseline Function- Mobility Independent Baseline Function- Recreation/Hobbies Able to perform gardening tasks without pain Current Functional Impairments (Reported) Functional Limitations- Recreation/ Pain with gardening and self- Hobbies care tasks. PT-OP-C Subjective Start: 12/17/21 09:10 Freq: Status: Active Protocol: Document 12/17/21 10:30 AW (Rec: 12/17/21 12:47 AW [id number]) OP-PT Subjective Patient Comments Patient Comments Pt hopes to keep interventions as conservative as possible. Looking forward to seeing how PT can help. Patient Questionnaires Quick Dash- Upper Extremity Quick Dash UE Score 36 Quick Dash UE Impairment 20 to 39% Impaired (Score 20- 39) OP-PT Pain Assessment Pain Assessment Grid Paper Pain Assessment Grid Completed Yes: scanned to EMR PT-OP-F Manual Assessment Start: 12/17/21 09:10 Freq: Status: Active Protocol: Document 12/17/21 10:30 AW (Rec: 12/17/21 12:52 AW [id number]) Manual Assessments Joint Mobility Assessment Joint Mobility Assessment GH inferior and posterior glides WNL bilaterally. Right A/C and S/C joints TTP. Clavicles and scapulae rotate WNL during UE elevation PT-OP-H Neuro Start: 12/17/21 09:10 Freq: Status: Active Protocol: Document 12/17/21 10:30 AW (Rec: 12/17/21 12:47 AW [id number]) Sensation Evaluation Gross Sensation Gross Sensation WNL Deep Tendon Reflex & Clonus Assessment Deep Tendon Reflex Bilateral Bicep Deep Tendon Reflex 1+ Diminished PT-OP-J Posture/Palpation/Skin Start: 12/17/21 09:10 Freq: Status: Active Protocol: Document 12/17/21 10:30 AW (Rec: 12/17/21 12:51 AW [id number]) Posture Evaluation Position Sitting Head/C-Spine Posture Forward Head Shoulder Posture (L) Elevated,(R) Elevated Palpation Assessment Location scalenes, SCM, UT Palpation Findings Soft Tissue Tightness Palpation Details Increased tone especially with right side scalenes and SCM. UT with increased tone bilaterally PT-OP-K Range of Motion Start: 12/17/21 09:10 Freq: Status: Active Protocol: Document 12/17/21 10:30 AW (Rec: 12/17/21 12:47 AW [id number]) Cervical Spine Range of Motion Cervical Spine Active Testing Position Sitting Flexion 39 Extension 40 Rotation Left 50 Rotation Right 50 Lateral Flexion Left 30 Lateral Flexion Right 20 ROM Limitations Soft Tissue Tightness,Pain Comments Right lateral flexion painful Shoulder Goniometric Range of Motion Shoulder Right Shoulder ROM WFL Yes Testing Position Sitting Flexion 170 Abduction 180 External Rotation at 0 degrees Abduction 65 Internal Rotation Behind Back (text) T6 Comments Internal rotation painful at end range on the right left Shoulder ROM WFL Yes Testing Position Sitting Flexion 170 Abduction 180 External Rotation at 0 degrees Abduction 70 Internal Rotation Behind Back (text) T8 Shoulder ROM Limitations Shoulder ROM Limitations Pain Elbow/Forearm Range of Motion Elbow/Forearm bilat Comments WNL. No pain with AROM or PROM PT-OP-L Special Tests Start: 12/17/21 09:10 Freq: Status: Active Protocol: Document 12/17/21 10:30 AW (Rec: 12/17/21 12:54 AW [id number]) Special Tests Cervical Spine Special Tests Spurling's Test Test Results negative bilaterally Shoulder Special Tests Dupont Augei Impingement Test Results vaguely positive right side AC Joint Compression Test Results positive right side PT-OP-M Strength Start: 12/17/21 09:10 Freq: Status: Active Protocol: Document 12/17/21 10:30 AW (Rec: 12/17/21 12:54 AW [id number]) Shoulder Strength Shoulder Manual Muscle Testing bilat Flexion 5 Normal Extension 5 Normal Abduction (C5) 5 Normal External Rotation 4+ Good+ Internal Rotation 5 Normal Comments MMT consistent side to side but painful in resisted ER on the right only Elbow/Forearm Strength Elbow and Forearm Manual Muscle Testing bilat Flexion (C6) 5 Normal Extension (C7) 5 Normal PT-OP-Q Treatments Start: 12/17/21 09:10 Freq: Status: Active Protocol: Document 12/17/21 10:30 AW (Rec: 12/17/21 12:58 AW [id number]) Therapeutic Exercises Supine Exercises scalene stretch Supine Exercise Name scalene stretch - focus anterior Side bilateral Comments HEP diaphragmatic breathing Supine Exercise Name diaphragmatic breathing Side bilateral Reps/Minutes 2 min Comments pt uses accessory muscles excessively; assigned for HEP pec stretch Supine Exercise Name pec stretch Side bilateral Equipment Used towel roll vertical Reps/Minutes 30 SH x 5 Comments HEP Self-Care/Home Management Treatment Education Patient Education Home Exercise Program,Joint Protection PT-OP-T Assessment and Plan Start: 12/17/21 09:10 Freq: Status: Active Protocol: Document 12/17/21 10:30 AW (Rec: 12/17/21 16:17 AW [id number]) Physical Therapy Assessment Rehab Potential Rehabilitation Potential Good Evaluation Complexity Number of Personal Factors/Comorbidities 1-2 Number of Body Systems Impaired 1-2 Clinical Presentation at Evaluation Stable Impairments Impairments Functional Activities,Pain, Posture,ROM,Soft Tissue Mobility,Strength Goals Four Impairment difficulty with gardening tasks Boiler Washer Goal (LTG) Pt will use long-handles loppers for pruning 30 minutes without increase in baseline pain. LTG Duration 10 weeks - 02/25/22 Three Impairment cervical ROM Impairment limitation in lateral flexion primarily Shelter Goal (LTG) Pt will improve cervical lateral flexion to 30 degrees or greater bilaterally without increase in pain. LTG Duration 10 weeks - 02/25/22 Two Impairment QuickDash - 36% impaired Boiler Washer Goal (LTG) Pt will score 15% or less on QuickDash as a measure of improved function in daily activities LTG Duration 10 weeks - 02/25/22 One Impairment Pt lacks HEP Short Term Goal (STG) Pt will be instructed in HEP for ROM, strength, and reduction in cervical/shoulder muscle tone STG Duration 5 weeks - 01/21/22 Boiler Washer Goal (LTG) Pt will be independent with HEP to manage pain symptoms independently LTG Duration 10 weeks - 02/25/22 Assessment Summary Assessment Chana is a 66 yo woman seen in outpatient PT with complaints of sudden onset right shoulder and neck pain after using long-handled loppers for pruning tasks ~45 minutes. Habitual postures of forward head and rounded shoulders likely predisposed her to injury. She presents with tenderness to palpation at her right A/C and S/C joints, increased tone in all scalenes, and slight elevation of right 1st rib. Pt is also observed to use accessory muscles of respiration excessively which may also contribute to scalene and upper trapezius tone. Pt is expected to benefit from skilled therapy to address these deficits and improve her ability to participate in self-care, household, and gardening activities. Physical Therapy Plan Frequency and Duration Frequency of Treatment 1-2x/week Duration of Treatment 10 weeks Plan of Care Start Date 12/17/21 Plan of Care End Date 02/25/22 Therapeutic Interventions Therapeutic Interventions Home Exercise Program,Joint Mobilizations,Manual Therapy, Neuromuscular Re-education, Self-Care/Home Management,Soft Tissue Mobilization,Taping, Therapeutic Activities, Therapeutic Exercises Modalities Cold Pack/Ice Massage,Electric Stimulation,Hot Packs Next Visit Focus/Plan Next Note Type Treatment Note Next Visit Plan review initial HEP; STM for scalene, SCM, and UT tone; postural education
--- NOTE | 2021-12-17 16:18 | PT.OPPOC ---
Physical, Occupational & Speech Therapy At [facility] Current Diagnoses Foreign body in other parts of alimentary tract, initial encounter (12/17/21) Visit Care Team Role Provider Type Francis Cuenca DO Attending Provider Physician Family Provider Primary Care Provider Referring Provider Specialty: Family Practice Address: [address] [place] [address], [facility] Email: Plan Of Care PT-OP-T Assessment and Plan Start: 12/17/21 09:10 Freq: Status: Active Protocol: Document 12/17/21 10:30 AW (Rec: 12/17/21 16:17 AW [id number]) Physical Therapy Assessment Rehab Potential Rehabilitation Potential Good Evaluation Complexity Number of Personal Factors/Comorbidities 1-2 Number of Body Systems Impaired 1-2 Clinical Presentation at Evaluation Stable Impairments Impairments Functional Activities,Pain, Posture,ROM,Soft Tissue Mobility,Strength Goals Four Impairment difficulty with gardening tasks [employer] Specialist Goal (LTG) Pt will use long-handles loppers for pruning 30 minutes without increase in baseline pain. LTG Duration 10 weeks - 02/25/22 Three Impairment cervical ROM Impairment limitation in lateral flexion primarily [employer] Specialist Goal (LTG) Pt will improve cervical lateral flexion to 30 degrees or greater bilaterally without increase in pain. LTG Duration 10 weeks - 02/25/22 Two Impairment QuickDash - 36% impaired Group Home Goal (LTG) Pt will score 15% or less on QuickDash as a measure of improved function in daily activities LTG Duration 10 weeks - 02/25/22 One Impairment Pt lacks HEP Short Term Goal (STG) Pt will be instructed in HEP for ROM, strength, and reduction in cervical/shoulder muscle tone STG Duration 5 weeks - 01/21/22 [employer] Specialist Goal (LTG) Pt will be independent with HEP to manage pain symptoms independently LTG Duration 10 weeks - 02/25/22 Assessment Summary Assessment Chana is a 66 yo woman seen in outpatient PT with complaints of sudden onset right shoulder and neck pain after using long-handled loppers for pruning tasks ~45 minutes. Habitual postures of forward head and rounded shoulders likely predisposed her to injury. She presents with tenderness to palpation at her right A/C and S/C joints, increased tone in all scalenes, and slight elevation of right 1st rib. Pt is also observed to use accessory muscles of respiration excessively which may also contribute to scalene and upper trapezius tone. Pt is expected to benefit from skilled therapy to address these deficits and improve her ability to participate in self-care, household, and gardening activities. Physical Therapy Plan Frequency and Duration Frequency of Treatment 1-2x/week Duration of Treatment 10 weeks Plan of Care Start Date 12/17/21 Plan of Care End Date 02/25/22 Therapeutic Interventions Therapeutic Interventions Home Exercise Program,Joint Mobilizations,Manual Therapy, Neuromuscular Re-education, Self-Care/Home Management,Soft Tissue Mobilization,Taping, Therapeutic Activities, Therapeutic Exercises Modalities Cold Pack/Ice Massage,Electric Stimulation,Hot Packs Next Visit Focus/Plan Next Note Type Treatment Note Next Visit Plan review initial HEP; STM for scalene, SCM, and UT tone; postural education Plan of Care Dates Plan of Care Start Date 12/17/21 Plan of Care End Date 02/25/22 Electronically Signed by: Annemarie Case, PT 12/17/21 [id number] Please Sign and Return: I have reviewed this Plan of Care and certify that the skilled therapy services above are required to meet the patient?s needs. Physician Signature Date Printed Name and Credentials Clinical Instructor Signature Printed Name and Credentials
--- NOTE | 2021-12-19 12:58 | PT.OTN ---
Current Diagnoses Foreign body in other parts of alimentary tract, initial encounter (12/19/21) Physical Therapy Treatment Note PT-OP-A Visit Information Start: 12/17/21 09:10 Freq: Status: Active Protocol: Document 12/19/21 10:30 AW (Rec: 12/19/21 10:32 AW [id number]) Out-Patient Physical Therapy Visit Information Visit Information Visit Type Initial Evaluation Visit Start Time 09:45 Visit Stop Time 10:30 Total Visit Minutes 45 Visit Number 2 Evaluation Information Evaluation Date 12/17/21 PT-OP-B Current Condition Start: 12/17/21 09:10 Freq: Status: Active Protocol: Document 12/17/21 10:30 AW (Rec: 12/17/21 10:31 AW [id number]) Current Condition History of Current Condition Onset Date September 2021 Current Complaints right shoulder pain History of Current Condition Chana was pruning with long loppers ~45 minutes in early September. She noticed feeling wimpy and started to have pain later that day. She had neck, jaw, shoulder, and collarbone pain. She had difficulty swallowing. All symptoms other than shoulder pain dissipated within a day. She has history of cervical DDD and notes she hasn't been working out like she used to before COV. 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 She then noticed her axillary lymph nodes felt painful and lumpier than usual . Ice and heat have been somewhat effective. She has had one dry needling appointment with Dr. Cuenca and plans to do more. Prior Treatments and Tests No imaging. Dry needling one treatment on 12/06 - somewhat effective. Hopes to keep interventions as conservative as possible Future Testing and Treatments Planned Pt likely to continue with dry needling Treatment Goals Patient/Caregiver Goals Walking more. Doing more. Puttering around the yard and gardening without pain Prior Functional Status Baseline Function- ADL's Independent Baseline Function- Mobility Independent Baseline Function- Recreation/Hobbies Able to perform gardening tasks without pain Current Functional Impairments (Reported) Functional Limitations- Recreation/ Pain with gardening and self- Hobbies care tasks. PT-OP-C Subjective Start: 12/17/21 09:10 Freq: Status: Active Protocol: Document 12/19/21 10:30 AW (Rec: 12/19/21 12:46 AW [id number]) OP-PT Subjective Patient Comments Patient Comments Pt has been able to complete HEP but would like to review Patient Reported Progress Same PT-OP-F Manual Assessment Start: 12/17/21 09:10 Freq: Status: Active Protocol: Document 12/17/21 10:30 AW (Rec: 12/17/21 12:52 AW [id number]) Manual Assessments Joint Mobility Assessment Joint Mobility Assessment GH inferior and posterior glides WNL bilaterally. Right A/C and S/C joints TTP. Clavicles and scapulae rotate WNL during UE elevation PT-OP-H Neuro Start: 12/17/21 09:10 Freq: Status: Active Protocol: Document 12/17/21 10:30 AW (Rec: 12/17/21 12:47 AW [id number]) Sensation Evaluation Gross Sensation Gross Sensation WNL Deep Tendon Reflex & Clonus Assessment Deep Tendon Reflex Bilateral Bicep Deep Tendon Reflex 1+ Diminished PT-OP-J Posture/Palpation/Skin Start: 12/17/21 09:10 Freq: Status: Active Protocol: Document 12/17/21 10:30 AW (Rec: 12/17/21 12:51 AW [id number]) Posture Evaluation Position Sitting Head/C-Spine Posture Forward Head Shoulder Posture (L) Elevated,(R) Elevated Palpation Assessment Location scalenes, SCM, UT Palpation Findings Soft Tissue Tightness Palpation Details Increased tone especially with right side scalenes and SCM. UT with increased tone bilaterally PT-OP-K Range of Motion Start: 12/17/21 09:10 Freq: Status: Active Protocol: Document 12/17/21 10:30 AW (Rec: 12/17/21 12:47 AW [id number]) Cervical Spine Range of Motion Cervical Spine Active Testing Position Sitting Flexion 39 Extension 40 Rotation Left 50 Rotation Right 50 Lateral Flexion Left 30 Lateral Flexion Right 20 ROM Limitations Soft Tissue Tightness,Pain Comments Right lateral flexion painful Shoulder Goniometric Range of Motion Shoulder Right Shoulder ROM WFL Yes Testing Position Sitting Flexion 170 Abduction 180 External Rotation at 0 degrees Abduction 65 Internal Rotation Behind Back (text) T6 Comments Internal rotation painful at end range on the right left Shoulder ROM WFL Yes Testing Position Sitting Flexion 170 Abduction 180 External Rotation at 0 degrees Abduction 70 Internal Rotation Behind Back (text) T8 Shoulder ROM Limitations Shoulder ROM Limitations Pain Elbow/Forearm Range of Motion Elbow/Forearm bilat Comments WNL. No pain with AROM or PROM PT-OP-L Special Tests Start: 12/17/21 09:10 Freq: Status: Active Protocol: Document 12/17/21 10:30 AW (Rec: 12/17/21 12:54 AW [id number]) Special Tests Cervical Spine Special Tests Spurling's Test Test Results negative bilaterally Shoulder Special Tests Dupont Augie Impingement Test Results vaguely positive right side AC Joint Compression Test Results positive right side PT-OP-M Strength Start: 12/17/21 09:10 Freq: Status: Active Protocol: Document 12/17/21 10:30 AW (Rec: 12/17/21 12:54 AW [id number]) Shoulder Strength Shoulder Manual Muscle Testing bilat Flexion 5 Normal Extension 5 Normal Abduction (C5) 5 Normal External Rotation 4+ Good+ Internal Rotation 5 Normal Comments MMT consistent side to side but painful in resisted ER on the right only Elbow/Forearm Strength Elbow and Forearm Manual Muscle Testing bilat Flexion (C6) 5 Normal Extension (C7) 5 Normal PT-OP-Q Treatments Start: 12/17/21 09:10 Freq: Status: Active Protocol: Document 12/19/21 10:30 AW (Rec: 12/19/21 10:32 AW [id number]) Cardio Equipment Upper Body Ergometer (UBE) Duration (Minutes) 4 RPM 60 Therapeutic Exercises Supine Exercises scalene stretch Supine Exercise Name scalene stretch - anterior and posterior Side bilateral Comments HEP diaphragmatic breathing Supine Exercise Name diaphragmatic breathing Side bilateral Reps/Minutes 2 min Comments during stretches pec stretch Supine Exercise Name pec stretch Side bilateral Equipment Used towel roll vertical Reps/Minutes 30 SH x 5 Comments HEP Sitting Exercises UT stretch Sitting Exercise Name UT stretch Comments HEP Manual Therapy Treatment Soft Tissue Mobilization pec minor Body Location right pec minor Comments R pec minor release with stab of the scapula and shoulder depression UT, SCM, scalenes Body Location UT, SCM, scalenes - primarily right side Mobilization Type Rolling,Strumming,Sustained Pressure Intensity/Depth Moderate Body Position Hooklying Comments Pt tolerates moderate pressure globally, superficial pressure at scalenes. Joint Mobilizations R GH MWM Joint R GH Comments inferior and posterior glides with GH rotation in ~40 degrees abduction A/C and S/C Joint A/C and S/C Comments gapping as tolerated 1st rib Joint 1st rib Direction inferior Grade III Body Position Hooklying PT-OP-T Assessment and Plan Start: 12/17/21 09:10 Freq: Status: Active Protocol: Document 12/19/21 10:30 AW (Rec: 12/19/21 12:58 AW [id number]) Physical Therapy Assessment Goals Four Impairment difficulty with gardening tasks Care Home Goal (LTG) Pt will use long-handles loppers for pruning 30 minutes without increase in baseline pain. LTG Duration 10 weeks - 02/25/22 Three Impairment cervical ROM Impairment limitation in lateral flexion primarily Care Home Goal (LTG) Pt will improve cervical lateral flexion to 30 degrees or greater bilaterally without increase in pain. LTG Duration 10 weeks - 02/25/22 Two Impairment QuickDash - 36% impaired Care Home Goal (LTG) Pt will score 15% or less on QuickDash as a measure of improved function in daily activities LTG Duration 10 weeks - 02/25/22 One Impairment Pt lacks HEP Short Term Goal (STG) Pt will be instructed in HEP for ROM, strength, and reduction in cervical/shoulder muscle tone STG Duration 5 weeks - 01/21/22 Sr. Social Media & Mobile Manager Goal (LTG) Pt will be independent with HEP to manage pain symptoms independently LTG Duration 10 weeks - 02/25/22 Assessment Summary Assessment Pt tolerated manual therapy for scalene tone, A/C and S/C gapping, and pec minor release on the right side. Reviewed initial HEP and added additional stretches. Right lateral flexion is most severely limited. Plan to review and progress cervical ROM next visit. Physical Therapy Plan Frequency and Duration Frequency of Treatment 1-2x/week Duration of Treatment 10 weeks Plan of Care Start Date 12/17/21 Plan of Care End Date 02/25/22 Therapeutic Interventions Therapeutic Interventions Home Exercise Program,Joint Mobilizations,Manual Therapy, Neuromuscular Re-education, Self-Care/Home Management,Soft Tissue Mobilization,Taping, Therapeutic Activities, Therapeutic Exercises Modalities Cold Pack/Ice Massage,Electric Stimulation,Hot Packs Next Visit Focus/Plan Next Note Type Treatment Note Next Visit Plan review HEP; STM for scalene, SCM, and UT tone; address R 1st rib elevation; cervical AROM; postural education
--- NOTE | 2021-12-24 12:28 | PT.OTN ---
Current Diagnoses Foreign body in other parts of alimentary tract, initial encounter (12/24/21) Physical Therapy Treatment Note PT-OP-A Visit Information Start: 12/17/21 09:10 Freq: Status: Active Protocol: Document 12/24/21 09:25 AW (Rec: 12/24/21 10:33 AW [id number]) Out-Patient Physical Therapy Visit Information Visit Information Visit Type Treatment Note Visit Start Time 09:45 Visit Stop Time 10:30 Total Visit Minutes 45 Visit Number 3 Number of CUSTOMER OPERATIONS INTERN Visits 0 Evaluation Information Evaluation Date 12/17/21 PT-OP-B Current Condition Start: 12/17/21 09:10 Freq: Status: Active Protocol: Document 12/17/21 10:30 AW (Rec: 12/17/21 10:31 AW [id number]) Current Condition History of Current Condition Onset Date September 2021 Current Complaints right shoulder pain History of Current Condition Chana was pruning with long loppers ~45 minutes in early September. She noticed feeling wimpy and started to have pain later that day. She had neck, jaw, shoulder, and collarbone pain. She had difficulty swallowing. All symptoms other than shoulder pain dissipated within a day. She has history of cervical DDD and notes she hasn't been working out like she used to before COV. 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 She then noticed her axillary lymph nodes felt painful and lumpier than usual . Ice and heat have been somewhat effective. She has had one dry needling appointment with Dr. Cuenca and plans to do more. Prior Treatments and Tests No imaging. Dry needling one treatment on 12/06 - somewhat effective. Hopes to keep interventions as conservative as possible Future Testing and Treatments Planned Pt likely to continue with dry needling Treatment Goals Patient/Caregiver Goals Walking more. Doing more. Puttering around the yard and gardening without pain Prior Functional Status Baseline Function- ADL's Independent Baseline Function- Mobility Independent Baseline Function- Recreation/Hobbies Able to perform gardening tasks without pain Current Functional Impairments (Reported) Functional Limitations- Recreation/ Pain with gardening and self- Hobbies care tasks. PT-OP-C Subjective Start: 12/17/21 09:10 Freq: Status: Active Protocol: Document 12/24/21 09:25 AW (Rec: 12/24/21 10:33 AW [id number]) OP-PT Subjective Patient Comments Patient Comments Pec stretch may have been a bit too aggressive. Pt reports sinus pressure and pain after doing stretches but is not sure they are related. She admits tendency to overdo and push through pain with all stretches. PT-OP-F Manual Assessment Start: 12/17/21 09:10 Freq: Status: Active Protocol: Document 12/17/21 10:30 AW (Rec: 12/17/21 12:52 AW [id number]) Manual Assessments Joint Mobility Assessment Joint Mobility Assessment GH inferior and posterior glides WNL bilaterally. Right A/C and S/C joints TTP. Clavicles and scapulae rotate WNL during UE elevation PT-OP-H Neuro Start: 12/17/21 09:10 Freq: Status: Active Protocol: Document 12/17/21 10:30 AW (Rec: 12/17/21 12:47 AW [id number]) Sensation Evaluation Gross Sensation Gross Sensation WNL Deep Tendon Reflex & Clonus Assessment Deep Tendon Reflex Bilateral Bicep Deep Tendon Reflex 1+ Diminished PT-OP-J Posture/Palpation/Skin Start: 12/17/21 09:10 Freq: Status: Active Protocol: Document 12/17/21 10:30 AW (Rec: 12/17/21 12:51 AW [id number]) Posture Evaluation Position Sitting Head/C-Spine Posture Forward Head Shoulder Posture (L) Elevated,(R) Elevated Palpation Assessment Location scalenes, SCM, UT Palpation Findings Soft Tissue Tightness Palpation Details Increased tone especially with right side scalenes and SCM. UT with increased tone bilaterally PT-OP-K Range of Motion Start: 12/17/21 09:10 Freq: Status: Active Protocol: Document 12/17/21 10:30 AW (Rec: 12/17/21 12:47 AW [id number]) Cervical Spine Range of Motion Cervical Spine Active Testing Position Sitting Flexion 39 Extension 40 Rotation Left 50 Rotation Right 50 Lateral Flexion Left 30 Lateral Flexion Right 20 ROM Limitations Soft Tissue Tightness,Pain Comments Right lateral flexion painful Shoulder Goniometric Range of Motion Shoulder Right Shoulder ROM WFL Yes Testing Position Sitting Flexion 170 Abduction 180 External Rotation at 0 degrees Abduction 65 Internal Rotation Behind Back (text) T6 Comments Internal rotation painful at end range on the right left Shoulder ROM WFL Yes Testing Position Sitting Flexion 170 Abduction 180 External Rotation at 0 degrees Abduction 70 Internal Rotation Behind Back (text) T8 Shoulder ROM Limitations Shoulder ROM Limitations Pain Elbow/Forearm Range of Motion Elbow/Forearm bilat Comments WNL. No pain with AROM or PROM PT-OP-L Special Tests Start: 12/17/21 09:10 Freq: Status: Active Protocol: Document 12/17/21 10:30 AW (Rec: 12/17/21 12:54 AW [id number]) Special Tests Cervical Spine Special Tests Spurling's Test Test Results negative bilaterally Shoulder Special Tests Dupont Augie Impingement Test Results vaguely positive right side AC Joint Compression Test Results positive right side PT-OP-M Strength Start: 12/17/21 09:10 Freq: Status: Active Protocol: Document 12/17/21 10:30 AW (Rec: 12/17/21 12:54 AW [id number]) Shoulder Strength Shoulder Manual Muscle Testing bilat Flexion 5 Normal Extension 5 Normal Abduction (C5) 5 Normal External Rotation 4+ Good+ Internal Rotation 5 Normal Comments MMT consistent side to side but painful in resisted ER on the right only Elbow/Forearm Strength Elbow and Forearm Manual Muscle Testing bilat Flexion (C6) 5 Normal Extension (C7) 5 Normal PT-OP-Q Treatments Start: 12/17/21 09:10 Freq: Status: Active Protocol: Document 12/24/21 09:25 AW (Rec: 12/24/21 10:33 AW [id number]) Cardio Equipment Upper Body Ergometer (UBE) Duration (Minutes) 4 RPM 60 Therapeutic Exercises Supine Exercises diaphragmatic breathing Supine Exercise Name diaphragmatic breathing Side bilateral Reps/Minutes 2 min Comments during stretches pec stretch Supine Exercise Name pec stretch Side bilateral Resistance hips to 90 deg abd only Equipment Used 1/2 foam roll vertical Reps/Minutes 30 SH x 5 Comments reviewed; adjusted to snow angels with slow movement Sidelying Exercises GH ER Sidelying Exercise Name GH ER Side right Resistance AROM Comments HEP Sitting Exercises cervical AROM Sitting Exercise Name cervical AROM - flex/ext/rot/ SB Resistance AROM Comments clinic only UT stretch Sitting Exercise Name UT stretch Comments HEP Standing Exercises pendulum Standing Exercise Name pendulum Side right Comments cw/ccw; HEP Manual Therapy Treatment Soft Tissue Mobilization pec minor Body Location right pec minor Comments R pec minor release with stab of the scapula and shoulder depression UT, SCM, scalenes Body Location UT, SCM, scalenes - primarily right side Mobilization Type Rolling,Strumming,Sustained Pressure Intensity/Depth Moderate Body Position Hooklying Joint Mobilizations A/C and S/C Joint A/C and S/C Comments gapping as tolerated 1st rib Joint 1st rib Direction inferior Grade III Body Position Hooklying Self-Care/Home Management Treatment Education Patient Education Home Exercise Program,Joint Protection PT-OP-T Assessment and Plan Start: 12/17/21 09:10 Freq: Status: Active Protocol: Document 12/24/21 09:25 AW (Rec: 12/24/21 10:33 AW [id number]) Physical Therapy Assessment Goals Four Impairment difficulty with gardening tasks Fuels Sales Representative Goal (LTG) Pt will use long-handles loppers for pruning 30 minutes without increase in baseline pain. LTG Duration 10 weeks - 02/25/22 Three Impairment cervical ROM Impairment limitation in lateral flexion primarily Detention Goal (LTG) Pt will improve cervical lateral flexion to 30 degrees or greater bilaterally without increase in pain. LTG Duration 10 weeks - 02/25/22 Two Impairment QuickDash - 36% impaired Detention Goal (LTG) Pt will score 15% or less on QuickDash as a measure of improved function in daily activities LTG Duration 10 weeks - 02/25/22 One Impairment Pt lacks HEP Short Term Goal (STG) Pt will be instructed in HEP for ROM, strength, and reduction in cervical/shoulder muscle tone STG Duration 5 weeks - 01/21/22 Detention Goal (LTG) Pt will be independent with HEP to manage pain symptoms independently LTG Duration 10 weeks - 02/25/22 Assessment Summary Assessment Pt reports increased neck and [place]-clavicular pain after stretches. She has a tendency to push through pain. Educated pt extensively to stretch within tolerable range and to discontinue any stretches which increase pain. Added sidelying shoulder ER and standing pendulums to HEP. Physical Therapy Plan Frequency and Duration Frequency of Treatment 1-2x/week Duration of Treatment 10 weeks Plan of Care Start Date 12/17/21 Plan of Care End Date 02/25/22 Therapeutic Interventions Therapeutic Interventions Home Exercise Program,Joint Mobilizations,Manual Therapy, Neuromuscular Re-education, Self-Care/Home Management,Soft Tissue Mobilization,Taping, Therapeutic Activities, Therapeutic Exercises Modalities Cold Pack/Ice Massage,Electric Stimulation,Hot Packs Next Visit Focus/Plan Next Note Type Treatment Note Next Visit Plan review HEP; STM for scalene, SCM, and UT tone; address R 1st rib elevation; cervical AROM; postural education
--- NOTE | 2021-12-26 16:53 | PT.OTN ---
Current Diagnoses Foreign body in other parts of alimentary tract, initial encounter (12/26/21) Physical Therapy Treatment Note PT-OP-A Visit Information Start: 12/17/21 09:10 Freq: Status: Active Protocol: Document 12/26/21 16:01 AW (Rec: 12/26/21 16:52 AW [id number]) Out-Patient Physical Therapy Visit Information Visit Information Visit Type Treatment Note Visit Start Time 16:00 Visit Stop Time 16:45 Total Visit Minutes 45 Visit Number 4 Number of NEWS WIRE PHOTO OPERATOR Visits 0 Evaluation Information Evaluation Date 12/17/21 PT-OP-B Current Condition Start: 12/17/21 09:10 Freq: Status: Active Protocol: Document 12/17/21 10:30 AW (Rec: 12/17/21 10:31 AW [id number]) Current Condition History of Current Condition Onset Date September 2021 Current Complaints right shoulder pain History of Current Condition Chana was pruning with long loppers ~45 minutes in early September. She noticed feeling wimpy and started to have pain later that day. She had neck, jaw, shoulder, and collarbone pain. She had difficulty swallowing. All symptoms other than shoulder pain dissipated within a day. She has history of cervical DDD and notes she hasn't been working out like she used to before COV. 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 She then noticed her axillary lymph nodes felt painful and lumpier than usual . Ice and heat have been somewhat effective. She has had one dry needling appointment with Dr. Cuenca and plans to do more. Prior Treatments and Tests No imaging. Dry needling one treatment on 12/06 - somewhat effective. Hopes to keep interventions as conservative as possible Future Testing and Treatments Planned Pt likely to continue with dry needling Treatment Goals Patient/Caregiver Goals Walking more. Doing more. Puttering around the yard and gardening without pain Prior Functional Status Baseline Function- ADL's Independent Baseline Function- Mobility Independent Baseline Function- Recreation/Hobbies Able to perform gardening tasks without pain Current Functional Impairments (Reported) Functional Limitations- Recreation/ Pain with gardening and self- Hobbies care tasks. PT-OP-C Subjective Start: 12/17/21 09:10 Freq: Status: Active Protocol: Document 12/26/21 16:01 AW (Rec: 12/26/21 16:52 AW [id number]) OP-PT Subjective Patient Comments Patient Comments Pt had a massage yesterday and feels great today. Has been able to reduce intensity of stretches and feels better. PT-OP-F Manual Assessment Start: 12/17/21 09:10 Freq: Status: Active Protocol: Document 12/17/21 10:30 AW (Rec: 12/17/21 12:52 AW [id number]) Manual Assessments Joint Mobility Assessment Joint Mobility Assessment GH inferior and posterior glides WNL bilaterally. Right A/C and S/C joints TTP. Clavicles and scapulae rotate WNL during UE elevation PT-OP-H Neuro Start: 12/17/21 09:10 Freq: Status: Active Protocol: Document 12/17/21 10:30 AW (Rec: 12/17/21 12:47 AW [id number]) Sensation Evaluation Gross Sensation Gross Sensation WNL Deep Tendon Reflex & Clonus Assessment Deep Tendon Reflex Bilateral Bicep Deep Tendon Reflex 1+ Diminished PT-OP-J Posture/Palpation/Skin Start: 12/17/21 09:10 Freq: Status: Active Protocol: Document 12/17/21 10:30 AW (Rec: 12/17/21 12:51 AW [id number]) Posture Evaluation Position Sitting Head/C-Spine Posture Forward Head Shoulder Posture (L) Elevated,(R) Elevated Palpation Assessment Location scalenes, SCM, UT Palpation Findings Soft Tissue Tightness Palpation Details Increased tone especially with right side scalenes and SCM. UT with increased tone bilaterally PT-OP-K Range of Motion Start: 12/17/21 09:10 Freq: Status: Active Protocol: Document 12/17/21 10:30 AW (Rec: 12/17/21 12:47 AW [id number]) Cervical Spine Range of Motion Cervical Spine Active Testing Position Sitting Flexion 39 Extension 40 Rotation Left 50 Rotation Right 50 Lateral Flexion Left 30 Lateral Flexion Right 20 ROM Limitations Soft Tissue Tightness,Pain Comments Right lateral flexion painful Shoulder Goniometric Range of Motion Shoulder Right Shoulder ROM WFL Yes Testing Position Sitting Flexion 170 Abduction 180 External Rotation at 0 degrees Abduction 65 Internal Rotation Behind Back (text) T6 Comments Internal rotation painful at end range on the right left Shoulder ROM WFL Yes Testing Position Sitting Flexion 170 Abduction 180 External Rotation at 0 degrees Abduction 70 Internal Rotation Behind Back (text) T8 Shoulder ROM Limitations Shoulder ROM Limitations Pain Elbow/Forearm Range of Motion Elbow/Forearm bilat Comments WNL. No pain with AROM or PROM PT-OP-L Special Tests Start: 12/17/21 09:10 Freq: Status: Active Protocol: Document 12/17/21 10:30 AW (Rec: 12/17/21 12:54 AW [id number]) Special Tests Cervical Spine Special Tests Spurling's Test Test Results negative bilaterally Shoulder Special Tests Dupont Augie Impingement Test Results vaguely positive right side AC Joint Compression Test Results positive right side PT-OP-M Strength Start: 12/17/21 09:10 Freq: Status: Active Protocol: Document 12/17/21 10:30 AW (Rec: 12/17/21 12:54 AW [id number]) Shoulder Strength Shoulder Manual Muscle Testing bilat Flexion 5 Normal Extension 5 Normal Abduction (C5) 5 Normal External Rotation 4+ Good+ Internal Rotation 5 Normal Comments MMT consistent side to side but painful in resisted ER on the right only Elbow/Forearm Strength Elbow and Forearm Manual Muscle Testing bilat Flexion (C6) 5 Normal Extension (C7) 5 Normal PT-OP-Q Treatments Start: 12/17/21 09:10 Freq: Status: Active Protocol: Document 12/26/21 16:01 AW (Rec: 12/26/21 16:52 AW [id number]) Cardio Equipment Upper Body Ergometer (UBE) Duration (Minutes) 4 RPM 60 Seat Position 7 Height 2 Other f/b no irritation Therapeutic Exercises Supine Exercises cervical retraction Supine Exercise Name cervical retraction Comments consider for HEP next visit AAROM shoulder flexion Supine Exercise Name AAROM shoulder flexion Equipment Used dowel Reps/Minutes x10 Comments HEP supine LT recruitment Supine Exercise Name supine LT recruitment Comments add for HEP next visit diaphragmatic breathing Supine Exercise Name diaphragmatic breathing Side bilateral Reps/Minutes 2 min Comments during stretches Sidelying Exercises GH ER Comments discussed; did not perform Sitting Exercises scalene stretch Sitting Exercise Name scalene stretch Side bilateral Equipment Used towel for shoulder depression Reps/Minutes 20 SH x 5 Comments HEP - replaced supine stretch with sitting cervical AROM Sitting Exercise Name cervical AROM - flex/ext/rot/ SB Resistance AROM Comments clinic only Standing Exercises pendulum Standing Exercise Name pendulum Side right Comments cw/ccw; HEP review Manual Therapy Treatment Soft Tissue Mobilization UT, SCM, scalenes Body Location UT, SCM, scalenes - primarily right side Mobilization Type Rolling,Strumming,Sustained Pressure Intensity/Depth Moderate Body Position Hooklying Joint Mobilizations A/C and S/C Joint A/C and S/C Comments gapping as tolerated 1st rib Joint 1st rib Direction inferior Grade III Body Position Hooklying Self-Care/Home Management Treatment Education Patient Education Home Exercise Program,Joint Protection Other Education Added seated scalene stretch ( replaced supine versions) and AAROM flexion for HEP. PT-OP-T Assessment and Plan Start: 12/17/21 09:10 Freq: Status: Active Protocol: Document 12/26/21 16:01 AW (Rec: 12/26/21 16:52 AW [id number]) Physical Therapy Assessment Goals Four Impairment difficulty with gardening tasks Residential Goal (LTG) Pt will use long-handles loppers for pruning 30 minutes without increase in baseline pain. LTG Duration 10 weeks - 02/25/22 Three Impairment cervical ROM Impairment limitation in lateral flexion primarily Teacher Visually Impaired Goal (LTG) Pt will improve cervical lateral flexion to 30 degrees or greater bilaterally without increase in pain. LTG Duration 10 weeks - 02/25/22 Two Impairment QuickDash - 36% impaired Teacher Visually Impaired Goal (LTG) Pt will score 15% or less on QuickDash as a measure of improved function in daily activities LTG Duration 10 weeks - 02/25/22 One Impairment Pt lacks HEP Short Term Goal (STG) Pt will be instructed in HEP for ROM, strength, and reduction in cervical/shoulder muscle tone STG Duration 5 weeks - 01/21/22 Residential Goal (LTG) Pt will be independent with HEP to manage pain symptoms independently LTG Duration 10 weeks - 02/25/22 Assessment Summary Assessment Chana is now able to tolerate stretches as she dials down the intensity. Reviewed scalene stretch today and offered seated option with towel for shoulder depression. Physical Therapy Plan Frequency and Duration Frequency of Treatment 1-2x/week Duration of Treatment 10 weeks Plan of Care Start Date 12/17/21 Plan of Care End Date 02/25/22 Therapeutic Interventions Therapeutic Interventions Home Exercise Program,Joint Mobilizations,Manual Therapy, Neuromuscular Re-education, Self-Care/Home Management,Soft Tissue Mobilization,Taping, Therapeutic Activities, Therapeutic Exercises Modalities Cold Pack/Ice Massage,Electric Stimulation,Hot Packs Next Visit Focus/Plan Next Note Type Treatment Note Next Visit Plan review and consolidate HEP; cervical AROM and isometric strength; postural education
--- NOTE | 2021-12-31 12:28 | PT.OTN ---
Current Diagnoses Foreign body in other parts of alimentary tract, initial encounter (12/31/21) Physical Therapy Treatment Note PT-OP-A Visit Information Start: 12/17/21 09:10 Freq: Status: Active Protocol: Document 12/31/21 11:15 AW (Rec: 12/31/21 11:19 AW [id number]) Out-Patient Physical Therapy Visit Information Visit Information Visit Type Treatment Note Visit Start Time 10:32 Visit Stop Time 11:15 Total Visit Minutes 43 Visit Number 5 Number of BURGLARY INVESTIGATOR Visits 0 Evaluation Information Evaluation Date 12/17/21 PT-OP-B Current Condition Start: 12/17/21 09:10 Freq: Status: Active Protocol: Document 12/17/21 10:30 AW (Rec: 12/17/21 10:31 AW [id number]) Current Condition History of Current Condition Onset Date September 2021 Current Complaints right shoulder pain History of Current Condition Chana was pruning with long loppers ~45 minutes in early September. She noticed feeling wimpy and started to have pain later that day. She had neck, jaw, shoulder, and collarbone pain. She had difficulty swallowing. All symptoms other than shoulder pain dissipated within a day. She has history of cervical DDD and notes she hasn't been working out like she used to before COV. 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 She then noticed her axillary lymph nodes felt painful and lumpier than usual . Ice and heat have been somewhat effective. She has had one dry needling appointment with Dr. Cuenca and plans to do more. Prior Treatments and Tests No imaging. Dry needling one treatment on 12/06 - somewhat effective. Hopes to keep interventions as conservative as possible Future Testing and Treatments Planned Pt likely to continue with dry needling Treatment Goals Patient/Caregiver Goals Walking more. Doing more. Puttering around the yard and gardening without pain Prior Functional Status Baseline Function- ADL's Independent Baseline Function- Mobility Independent Baseline Function- Recreation/Hobbies Able to perform gardening tasks without pain Current Functional Impairments (Reported) Functional Limitations- Recreation/ Pain with gardening and self- Hobbies care tasks. PT-OP-C Subjective Start: 12/17/21 09:10 Freq: Status: Active Protocol: Document 12/31/21 11:15 AW (Rec: 12/31/21 11:19 AW [id number]) OP-PT Subjective Patient Comments Patient Comments Feeling ok today, Has been backing off on stretch intensity and not stretching before bed which seems to be helping her sleep better. PT-OP-F Manual Assessment Start: 12/17/21 09:10 Freq: Status: Active Protocol: Document 12/17/21 10:30 AW (Rec: 12/17/21 12:52 AW [id number]) Manual Assessments Joint Mobility Assessment Joint Mobility Assessment GH inferior and posterior glides WNL bilaterally. Right A/C and S/C joints TTP. Clavicles and scapulae rotate WNL during UE elevation PT-OP-H Neuro Start: 12/17/21 09:10 Freq: Status: Active Protocol: Document 12/17/21 10:30 AW (Rec: 12/17/21 12:47 AW [id number]) Sensation Evaluation Gross Sensation Gross Sensation WNL Deep Tendon Reflex & Clonus Assessment Deep Tendon Reflex Bilateral Bicep Deep Tendon Reflex 1+ Diminished PT-OP-J Posture/Palpation/Skin Start: 12/17/21 09:10 Freq: Status: Active Protocol: Document 12/17/21 10:30 AW (Rec: 12/17/21 12:51 AW [id number]) Posture Evaluation Position Sitting Head/C-Spine Posture Forward Head Shoulder Posture (L) Elevated,(R) Elevated Palpation Assessment Location scalenes, SCM, UT Palpation Findings Soft Tissue Tightness Palpation Details Increased tone especially with right side scalenes and SCM. UT with increased tone bilaterally PT-OP-K Range of Motion Start: 12/17/21 09:10 Freq: Status: Active Protocol: Document 12/17/21 10:30 AW (Rec: 12/17/21 12:47 AW [id number]) Cervical Spine Range of Motion Cervical Spine Active Testing Position Sitting Flexion 39 Extension 40 Rotation Left 50 Rotation Right 50 Lateral Flexion Left 30 Lateral Flexion Right 20 ROM Limitations Soft Tissue Tightness,Pain Comments Right lateral flexion painful Shoulder Goniometric Range of Motion Shoulder Right Shoulder ROM WFL Yes Testing Position Sitting Flexion 170 Abduction 180 External Rotation at 0 degrees Abduction 65 Internal Rotation Behind Back (text) T6 Comments Internal rotation painful at end range on the right left Shoulder ROM WFL Yes Testing Position Sitting Flexion 170 Abduction 180 External Rotation at 0 degrees Abduction 70 Internal Rotation Behind Back (text) T8 Shoulder ROM Limitations Shoulder ROM Limitations Pain Elbow/Forearm Range of Motion Elbow/Forearm bilat Comments WNL. No pain with AROM or PROM PT-OP-L Special Tests Start: 12/17/21 09:10 Freq: Status: Active Protocol: Document 12/17/21 10:30 AW (Rec: 12/17/21 12:54 AW [id number]) Special Tests Cervical Spine Special Tests Spurling's Test Test Results negative bilaterally Shoulder Special Tests Dupont Augie Impingement Test Results vaguely positive right side AC Joint Compression Test Results positive right side PT-OP-M Strength Start: 12/17/21 09:10 Freq: Status: Active Protocol: Document 12/17/21 10:30 AW (Rec: 12/17/21 12:54 AW [id number]) Shoulder Strength Shoulder Manual Muscle Testing bilat Flexion 5 Normal Extension 5 Normal Abduction (C5) 5 Normal External Rotation 4+ Good+ Internal Rotation 5 Normal Comments MMT consistent side to side but painful in resisted ER on the right only Elbow/Forearm Strength Elbow and Forearm Manual Muscle Testing bilat Flexion (C6) 5 Normal Extension (C7) 5 Normal PT-OP-Q Treatments Start: 12/17/21 09:10 Freq: Status: Active Protocol: Document 12/31/21 11:15 AW (Rec: 12/31/21 11:19 AW [id number]) Cardio Equipment Upper Body Ergometer (UBE) Duration (Minutes) 4 RPM 60 Seat Position 7 Height 2 Other minor A/C irritation today; dc 'ed Therapeutic Exercises Supine Exercises cervical retraction Supine Exercise Name cervical retraction Comments added to HEP supine LT recruitment Supine Exercise Name supine LT recruitment Comments add for HEP next visit diaphragmatic breathing Supine Exercise Name diaphragmatic breathing Side bilateral Reps/Minutes 2 min Comments during stretches Sitting Exercises pulleys Sitting Exercise Name pulleys - flexion Side bilateral Reps/Minutes 3 min Comments with active cervical rotation/ lat flexion end range scalene stretch Sitting Exercise Name scalene stretch Side bilateral Equipment Used towel for shoulder depression Reps/Minutes 20 SH x 5 Comments HEP - replaced supine stretch with sitting cervical AROM Sitting Exercise Name cervical AROM - flex/ext/rot/ SB Resistance AROM Comments clinic only Standing Exercises rows Standing Exercise Name rows Resistance TB1 Reps/Minutes x10 Comments clinic only isometric neck Standing Exercise Name isometric pt - all planes Equipment Used small ball Reps/Minutes x8 Comments HEP pendulum Standing Exercise Name pendulum Side right Comments cw/ccw; HEP review Manual Therapy Treatment Soft Tissue Mobilization pec minor Body Location right pec minor Comments R pec minor release with stab of the scapula and shoulder depression UT, SCM, scalenes Body Location UT, SCM, scalenes - primarily right side Mobilization Type Rolling,Strumming,Sustained Pressure Intensity/Depth Moderate Body Position Hooklying Joint Mobilizations 1st rib Joint 1st rib Direction inferior Grade III Body Position Hooklying Self-Care/Home Management Treatment Education Patient Education Joint Protection PT-OP-T Assessment and Plan Start: 12/17/21 09:10 Freq: Status: Active Protocol: Document 12/31/21 11:15 AW (Rec: 12/31/21 11:19 AW [id number]) Physical Therapy Assessment Goals Four Impairment difficulty with gardening tasks Construction Engineering Manager Goal (LTG) Pt will use long-handles loppers for pruning 30 minutes without increase in baseline pain. LTG Duration 10 weeks - 02/25/22 Three Impairment cervical ROM Impairment limitation in lateral flexion primarily Nursing Home Goal (LTG) Pt will improve cervical lateral flexion to 30 degrees or greater bilaterally without increase in pain. LTG Duration 10 weeks - 02/25/22 Two Impairment QuickDash - 36% impaired Construction Engineering Manager Goal (LTG) Pt will score 15% or less on QuickDash as a measure of improved function in daily activities LTG Duration 10 weeks - 02/25/22 One Impairment Pt lacks HEP Short Term Goal (STG) Pt will be instructed in HEP for ROM, strength, and reduction in cervical/shoulder muscle tone STG Duration 5 weeks - 01/21/22 Construction Engineering Manager Goal (LTG) Pt will be independent with HEP to manage pain symptoms independently LTG Duration 10 weeks - 02/25/22 Assessment Summary Assessment Pt continues to have pinching at anterior shoulder which is worst with external rotation. Plan to continue with AAROM, address pec minor irritation/ tightness. Physical Therapy Plan Frequency and Duration Frequency of Treatment 1-2x/week Duration of Treatment 10 weeks Plan of Care Start Date 12/17/21 Plan of Care End Date 02/25/22 Therapeutic Interventions Therapeutic Interventions Home Exercise Program,Joint Mobilizations,Manual Therapy, Neuromuscular Re-education, Self-Care/Home Management,Soft Tissue Mobilization,Taping, Therapeutic Activities, Therapeutic Exercises Modalities Cold Pack/Ice Massage,Electric Stimulation,Hot Packs Next Visit Focus/Plan Next Note Type Treatment Note Next Visit Plan re-check cervical isometrics; pec minor release and self- release; consider AAROM ER
--- NOTE | 2022-01-02 11:18 | PT.OTN ---
Current Diagnoses Foreign body in other parts of alimentary tract, initial encounter (01/02/22) Physical Therapy Treatment Note PT-OP-A Visit Information Start: 12/17/21 09:10 Freq: Status: Active Protocol: Document 01/02/22 09:41 AW (Rec: 01/02/22 11:17 AW [id number]) Out-Patient Physical Therapy Visit Information Visit Information Visit Type Treatment Note Visit Start Time 10:30 Visit Stop Time 11:25 Total Visit Minutes 55 Visit Number 6 Number of SEARCH DIRECTOR Visits 0 Evaluation Information Evaluation Date 12/17/21 PT-OP-B Current Condition Start: 12/17/21 09:10 Freq: Status: Active Protocol: Document 12/17/21 10:30 AW (Rec: 12/17/21 10:31 AW [id number]) Current Condition History of Current Condition Onset Date September 2021 Current Complaints right shoulder pain History of Current Condition Chana was pruning with long loppers ~45 minutes in early September. She noticed feeling wimpy and started to have pain later that day. She had neck, jaw, shoulder, and collarbone pain. She had difficulty swallowing. All symptoms other than shoulder pain dissipated within a day. She has history of cervical DDD and notes she hasn't been working out like she used to before COV. 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 She then noticed her axillary lymph nodes felt painful and lumpier than usual . Ice and heat have been somewhat effective. She has had one dry needling appointment with Dr. Cuenca and plans to do more. Prior Treatments and Tests No imaging. Dry needling one treatment on 12/06 - somewhat effective. Hopes to keep interventions as conservative as possible Future Testing and Treatments Planned Pt likely to continue with dry needling Treatment Goals Patient/Caregiver Goals Walking more. Doing more. Puttering around the yard and gardening without pain Prior Functional Status Baseline Function- ADL's Independent Baseline Function- Mobility Independent Baseline Function- Recreation/Hobbies Able to perform gardening tasks without pain Current Functional Impairments (Reported) Functional Limitations- Recreation/ Pain with gardening and self- Hobbies care tasks. PT-OP-C Subjective Start: 12/17/21 09:10 Freq: Status: Active Protocol: Document 01/02/22 09:41 AW (Rec: 01/02/22 11:17 AW [id number]) OP-PT Subjective Patient Comments Patient Comments Was feeling ok until washed hair this morning and then had pain in anterior shoulder along the collarbone. Still has pain. PT-OP-F Manual Assessment Start: 12/17/21 09:10 Freq: Status: Active Protocol: Document 12/17/21 10:30 AW (Rec: 12/17/21 12:52 AW [id number]) Manual Assessments Joint Mobility Assessment Joint Mobility Assessment GH inferior and posterior glides WNL bilaterally. Right A/C and S/C joints TTP. Clavicles and scapulae rotate WNL during UE elevation PT-OP-H Neuro Start: 12/17/21 09:10 Freq: Status: Active Protocol: Document 12/17/21 10:30 AW (Rec: 12/17/21 12:47 AW [id number]) Sensation Evaluation Gross Sensation Gross Sensation WNL Deep Tendon Reflex & Clonus Assessment Deep Tendon Reflex Bilateral Bicep Deep Tendon Reflex 1+ Diminished PT-OP-J Posture/Palpation/Skin Start: 12/17/21 09:10 Freq: Status: Active Protocol: Document 12/17/21 10:30 AW (Rec: 12/17/21 12:51 AW [id number]) Posture Evaluation Position Sitting Head/C-Spine Posture Forward Head Shoulder Posture (L) Elevated,(R) Elevated Palpation Assessment Location scalenes, SCM, UT Palpation Findings Soft Tissue Tightness Palpation Details Increased tone especially with right side scalenes and SCM. UT with increased tone bilaterally PT-OP-K Range of Motion Start: 12/17/21 09:10 Freq: Status: Active Protocol: Document 12/17/21 10:30 AW (Rec: 12/17/21 12:47 AW [id number]) Cervical Spine Range of Motion Cervical Spine Active Testing Position Sitting Flexion 39 Extension 40 Rotation Left 50 Rotation Right 50 Lateral Flexion Left 30 Lateral Flexion Right 20 ROM Limitations Soft Tissue Tightness,Pain Comments Right lateral flexion painful Shoulder Goniometric Range of Motion Shoulder Right Shoulder ROM WFL Yes Testing Position Sitting Flexion 170 Abduction 180 External Rotation at 0 degrees Abduction 65 Internal Rotation Behind Back (text) T6 Comments Internal rotation painful at end range on the right left Shoulder ROM WFL Yes Testing Position Sitting Flexion 170 Abduction 180 External Rotation at 0 degrees Abduction 70 Internal Rotation Behind Back (text) T8 Shoulder ROM Limitations Shoulder ROM Limitations Pain Elbow/Forearm Range of Motion Elbow/Forearm bilat Comments WNL. No pain with AROM or PROM PT-OP-L Special Tests Start: 12/17/21 09:10 Freq: Status: Active Protocol: Document 12/17/21 10:30 AW (Rec: 12/17/21 12:54 AW [id number]) Special Tests Cervical Spine Special Tests Spurling's Test Test Results negative bilaterally Shoulder Special Tests Dupont Augie Impingement Test Results vaguely positive right side AC Joint Compression Test Results positive right side PT-OP-M Strength Start: 12/17/21 09:10 Freq: Status: Active Protocol: Document 12/17/21 10:30 AW (Rec: 12/17/21 12:54 AW [id number]) Shoulder Strength Shoulder Manual Muscle Testing bilat Flexion 5 Normal Extension 5 Normal Abduction (C5) 5 Normal External Rotation 4+ Good+ Internal Rotation 5 Normal Comments MMT consistent side to side but painful in resisted ER on the right only Elbow/Forearm Strength Elbow and Forearm Manual Muscle Testing bilat Flexion (C6) 5 Normal Extension (C7) 5 Normal PT-OP-Q Treatments Start: 12/17/21 09:10 Freq: Status: Active Protocol: Document 01/02/22 09:41 AW (Rec: 01/02/22 11:17 AW [id number]) Cardio Equipment Upper Body Ergometer (UBE) Duration (Minutes) 4 RPM 60 Seat Position 7 Height 2 Other minor A/C irritation today; dc 'ed Therapeutic Exercises Supine Exercises AAROM Supine Exercise Name AAROM - flexion, ER Side right Equipment Used dowel Reps/Minutes x20 Comments pain free range; HEP Sidelying Exercises GH abduction Sidelying Exercise Name GH abduction Side right Resistance AROM Reps/Minutes x20 Comments mild pinching anterior shoulder; dc'ed GH ER Sidelying Exercise Name GH ER Side right Resistance AROM Reps/Minutes x20 Comments HEP review Standing Exercises pendulum Standing Exercise Name pendulum Side right Comments cw/ccw; HEP review Manual Therapy Treatment Soft Tissue Mobilization pec minor Body Location right pec minor Comments R pec minor release with stab of the scapula and shoulder depression Joint Mobilizations R GH MWM Joint R GH Comments inferior and posterior glides with GH rotation in ~40 degrees abduction A/C and S/C Joint A/C and S/C Comments gapping A/C only today 1st rib Joint 1st rib Direction inferior Grade III Body Position Hooklying PT-OP-R Modalities Start: 12/17/21 09:10 Freq: Status: Active Protocol: Document 01/02/22 09:41 AW (Rec: 01/02/22 11:18 AW [id number]) Hot Pack/Cold Pack Treatment Cold Pack Location r shoulder Patient Position Hooklying Treatment Duration (minutes) 15 Patient Tolerance Good PT-OP-T Assessment and Plan Start: 12/17/21 09:10 Freq: Status: Active Protocol: Document 01/02/22 09:41 AW (Rec: 01/02/22 11:17 AW [id number]) Physical Therapy Assessment Goals Four Impairment difficulty with gardening tasks Custodial Goal (LTG) Pt will use long-handles loppers for pruning 30 minutes without increase in baseline pain. LTG Duration 10 weeks - 02/25/22 Three Impairment cervical ROM Impairment limitation in lateral flexion primarily Custodial Goal (LTG) Pt will improve cervical lateral flexion to 30 degrees or greater bilaterally without increase in pain. LTG Duration 10 weeks - 02/25/22 Two Impairment QuickDash - 36% impaired Custodial Goal (LTG) Pt will score 15% or less on QuickDash as a measure of improved function in daily activities LTG Duration 10 weeks - 02/25/22 One Impairment Pt lacks HEP Short Term Goal (STG) Pt will be instructed in HEP for ROM, strength, and reduction in cervical/shoulder muscle tone STG Duration 5 weeks - 01/21/22 Gym Supervisor Goal (LTG) Pt will be independent with HEP to manage pain symptoms independently LTG Duration 10 weeks - 02/25/22 Assessment Summary Assessment Pt tolerates AAROM well and has dowel at home for practice . Eliminated active ER from HEP and replaced with AAROM flexion and ER. Physical Therapy Plan Frequency and Duration Frequency of Treatment 1-2x/week Duration of Treatment 10 weeks Plan of Care Start Date 12/17/21 Plan of Care End Date 02/25/22 Therapeutic Interventions Therapeutic Interventions Home Exercise Program,Joint Mobilizations,Manual Therapy, Neuromuscular Re-education, Self-Care/Home Management,Soft Tissue Mobilization,Taping, Therapeutic Activities, Therapeutic Exercises Modalities Cold Pack/Ice Massage,Electric Stimulation,Hot Packs Next Visit Focus/Plan Next Note Type Treatment Note Next Visit Plan re-check cervical isometrics; pec minor release and self- release; consider HESHAM GASCA
--- NOTE | 2022-01-08 09:47 | PT.OTN ---
Current Diagnoses Foreign body in other parts of alimentary tract, initial encounter (01/08/22) Physical Therapy Treatment Note PT-OP-A Visit Information Start: 12/17/21 09:10 Freq: Status: Active Protocol: Document 01/08/22 08:48 AW (Rec: 01/08/22 09:46 AW [id number]) Out-Patient Physical Therapy Visit Information Visit Information Visit Type Treatment Note Visit Start Time 09:00 Visit Number 06/17 before KX Number of SOCIAL SCIENTIST Visits 0 Evaluation Information Evaluation Date 12/17/21 PT-OP-B Current Condition Start: 12/17/21 09:10 Freq: Status: Active Protocol: Document 12/17/21 10:30 AW (Rec: 12/17/21 10:31 AW [id number]) Current Condition History of Current Condition Onset Date September 2021 Current Complaints right shoulder pain History of Current Condition Chana was pruning with long loppers ~45 minutes in early September. She noticed feeling wimpy and started to have pain later that day. She had neck, jaw, shoulder, and collarbone pain. She had difficulty swallowing. All symptoms other than shoulder pain dissipated within a day. She has history of cervical DDD and notes she hasn't been working out like she used to before COV. 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 She then noticed her axillary lymph nodes felt painful and lumpier than usual . Ice and heat have been somewhat effective. She has had one dry needling appointment with Dr. Cuenca and plans to do more. Prior Treatments and Tests No imaging. Dry needling one treatment on 12/06 - somewhat effective. Hopes to keep interventions as conservative as possible Future Testing and Treatments Planned Pt likely to continue with dry needling Treatment Goals Patient/Caregiver Goals Walking more. Doing more. Puttering around the yard and gardening without pain Prior Functional Status Baseline Function- ADL's Independent Baseline Function- Mobility Independent Baseline Function- Recreation/Hobbies Able to perform gardening tasks without pain Current Functional Impairments (Reported) Functional Limitations- Recreation/ Pain with gardening and self- Hobbies care tasks. PT-OP-C Subjective Start: 12/17/21 09:10 Freq: Status: Active Protocol: Document 01/08/22 08:48 AW (Rec: 02/09/22 09:46 AW [id number]) OP-PT Subjective Patient Comments Patient Comments Had a massage focused on neck and shoulders Thursday, felt pretty good yesterday. Now feeling more irritable. PT-OP-F Manual Assessment Start: 12/17/21 09:10 Freq: Status: Active Protocol: Document 12/17/21 10:30 AW (Rec: 12/17/21 12:52 AW [id number]) Manual Assessments Joint Mobility Assessment Joint Mobility Assessment GH inferior and posterior glides WNL bilaterally. Right A/C and S/C joints TTP. Clavicles and scapulae rotate WNL during UE elevation PT-OP-H Neuro Start: 12/17/21 09:10 Freq: Status: Active Protocol: Document 12/17/21 10:30 AW (Rec: 12/17/21 12:47 AW [id number]) Sensation Evaluation Gross Sensation Gross Sensation WNL Deep Tendon Reflex & Clonus Assessment Deep Tendon Reflex Bilateral Bicep Deep Tendon Reflex 1+ Diminished PT-OP-J Posture/Palpation/Skin Start: 12/17/21 09:10 Freq: Status: Active Protocol: Document 12/17/21 10:30 AW (Rec: 12/17/21 12:51 AW [id number]) Posture Evaluation Position Sitting Head/C-Spine Posture Forward Head Shoulder Posture (L) Elevated,(R) Elevated Palpation Assessment Location scalenes, SCM, UT Palpation Findings Soft Tissue Tightness Palpation Details Increased tone especially with right side scalenes and SCM. UT with increased tone bilaterally PT-OP-K Range of Motion Start: 12/17/21 09:10 Freq: Status: Active Protocol: Document 12/17/21 10:30 AW (Rec: 12/17/21 12:47 AW [id number]) Cervical Spine Range of Motion Cervical Spine Active Testing Position Sitting Flexion 39 Extension 40 Rotation Left 50 Rotation Right 50 Lateral Flexion Left 30 Lateral Flexion Right 20 ROM Limitations Soft Tissue Tightness,Pain Comments Right lateral flexion painful Shoulder Goniometric Range of Motion Shoulder Right Shoulder ROM WFL Yes Testing Position Sitting Flexion 170 Abduction 180 External Rotation at 0 degrees Abduction 65 Internal Rotation Behind Back (text) T6 Comments Internal rotation painful at end range on the right left Shoulder ROM WFL Yes Testing Position Sitting Flexion 170 Abduction 180 External Rotation at 0 degrees Abduction 70 Internal Rotation Behind Back (text) T8 Shoulder ROM Limitations Shoulder ROM Limitations Pain Elbow/Forearm Range of Motion Elbow/Forearm bilat Comments WNL. No pain with AROM or PROM PT-OP-L Special Tests Start: 12/17/21 09:10 Freq: Status: Active Protocol: Document 12/17/21 10:30 AW (Rec: 12/17/21 12:54 AW [id number]) Special Tests Cervical Spine Special Tests Spurling's Test Test Results negative bilaterally Shoulder Special Tests Dupont Augie Impingement Test Results vaguely positive right side AC Joint Compression Test Results positive right side PT-OP-M Strength Start: 12/17/21 09:10 Freq: Status: Active Protocol: Document 12/17/21 10:30 AW (Rec: 12/17/21 12:54 AW [id number]) Shoulder Strength Shoulder Manual Muscle Testing bilat Flexion 5 Normal Extension 5 Normal Abduction (C5) 5 Normal External Rotation 4+ Good+ Internal Rotation 5 Normal Comments MMT consistent side to side but painful in resisted ER on the right only Elbow/Forearm Strength Elbow and Forearm Manual Muscle Testing bilat Flexion (C6) 5 Normal Extension (C7) 5 Normal PT-OP-Q Treatments Start: 12/17/21 09:10 Freq: Status: Active Protocol: Document 01/08/22 08:48 AW (Rec: 01/08/22 09:46 AW [id number]) Therapeutic Exercises Supine Exercises AAROM Supine Exercise Name AAROM - flexion ashley Side right Equipment Used dowel Reps/Minutes x20 Comments pain free range; HEP Sitting Exercises table slide Sitting Exercise Name table slide - flexion Side bilateral Equipment Used tx table, emilee stood Reps/Minutes x15 Comments HEP Standing Exercises pendulum Standing Exercise Name pendulum Side right Comments cw/ccw; HEP review Manual Therapy Treatment Soft Tissue Mobilization UT, SCM, scalenes Body Location UT, SCM, scalenes - primarily right side Mobilization Type Rolling,Strumming,Sustained Pressure Intensity/Depth Moderate Body Position Hooklying Joint Mobilizations R GH MWM Joint R GH Comments inferior and posterior glides with GH rotation in ~40 degrees abduction A/C and S/C Joint A/C and S/C Comments gapping 1st rib Joint 1st rib Direction inferior Grade III Body Position Hooklying PT-OP-R Modalities Start: 12/17/21 09:10 Freq: Status: Active Protocol: Document 02/03/22 09:41 AW (Rec: 01/02/22 11:18 AW [id number]) Hot Pack/Cold Pack Treatment Cold Pack Location r shoulder Patient Position Hooklying Treatment Duration (minutes) 15 Patient Tolerance Good PT-OP-T Assessment and Plan Start: 12/17/21 09:10 Freq: Status: Active Protocol: Document 01/08/22 08:48 AW (Rec: 01/08/22 09:46 AW [id number]) Physical Therapy Assessment Goals Four Impairment difficulty with gardening tasks Intermediate Goal (LTG) Pt will use long-handles loppers for pruning 30 minutes without increase in baseline pain. LTG Duration 10 weeks - 02/25/22 Three Impairment cervical ROM Impairment limitation in lateral flexion primarily [employer] Line Worker Goal (LTG) Pt will improve cervical lateral flexion to 30 degrees or greater bilaterally without increase in pain. LTG Duration 10 weeks - 02/25/22 Two Impairment QuickDash - 36% impaired [employer] Line Worker Goal (LTG) Pt will score 15% or less on QuickDash as a measure of improved function in daily activities LTG Duration 10 weeks - 02/25/22 One Impairment Pt lacks HEP Short Term Goal (STG) Pt will be instructed in HEP for ROM, strength, and reduction in cervical/shoulder muscle tone STG Duration 5 weeks - 01/21/22 [employer] Line Worker Goal (LTG) Pt will be independent with HEP to manage pain symptoms independently LTG Duration 10 weeks - 02/25/22 Assessment Summary Assessment Pt tolerated cryotherapy last visit but did not feel she benefitted. Continued AAROM in flexion with dowel and table slide. Discontinued rotation. Will continue to focus on AAROM and possibly progress to working against gravity next visit. Physical Therapy Plan Frequency and Duration Frequency of Treatment 1-2x/week Duration of Treatment 10 weeks Plan of Care Start Date 12/17/21 Plan of Care End Date 02/25/22 Therapeutic Interventions Therapeutic Interventions Home Exercise Program,Joint Mobilizations,Manual Therapy, Neuromuscular Re-education, Self-Care/Home Management,Soft Tissue Mobilization,Taping, Therapeutic Activities, Therapeutic Exercises Modalities Cold Pack/Ice Massage,Electric Stimulation,Hot Packs
--- NOTE | 2022-01-16 09:46 | PT.OTN ---
Current Diagnoses Foreign body in other parts of alimentary tract, initial encounter (01/16/22) Physical Therapy Treatment Note PT-OP-A Visit Information Start: 12/17/21 09:10 Freq: Status: Active Protocol: Document 01/16/22 08:29 AW (Rec: 01/16/22 09:46 AW [id number]) Out-Patient Physical Therapy Visit Information Visit Information Visit Type Treatment Note Visit Start Time 09:00 Visit Stop Time 09:42 Total Visit Minutes 42 Visit Number 07/18 before KX Number of SENIOR STATISTICAL PROGRAMMER Visits 0 Evaluation Information Evaluation Date 12/17/21 PT-OP-B Current Condition Start: 12/17/21 09:10 Freq: Status: Active Protocol: Document 12/17/21 10:30 AW (Rec: 12/17/21 10:31 AW [id number]) Current Condition History of Current Condition Onset Date September 2021 Current Complaints right shoulder pain History of Current Condition Chana was pruning with long loppers ~45 minutes in early September. She noticed feeling wimpy and started to have pain later that day. She had neck, jaw, shoulder, and collarbone pain. She had difficulty swallowing. All symptoms other than shoulder pain dissipated within a day. She has history of cervical DDD and notes she hasn't been working out like she used to before COV. 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 She then noticed her axillary lymph nodes felt painful and lumpier than usual . Ice and heat have been somewhat effective. She has had one dry needling appointment with Dr. Cuenca and plans to do more. Prior Treatments and Tests No imaging. Dry needling one treatment on 12/06 - somewhat effective. Hopes to keep interventions as conservative as possible Future Testing and Treatments Planned Pt likely to continue with dry needling Treatment Goals Patient/Caregiver Goals Walking more. Doing more. Puttering around the yard and gardening without pain Prior Functional Status Baseline Function- ADL's Independent Baseline Function- Mobility Independent Baseline Function- Recreation/Hobbies Able to perform gardening tasks without pain Current Functional Impairments (Reported) Functional Limitations- Recreation/ Pain with gardening and self- Hobbies care tasks. PT-OP-C Subjective Start: 12/17/21 09:10 Freq: Status: Active Protocol: Document 01/16/22 08:29 AW (Rec: 01/16/22 09:46 AW [id number]) OP-PT Subjective Patient Comments Patient Comments January 30 will be first dry needling appointment. Willing to try tape today. Was able to shower today with less pain. PT-OP-F Manual Assessment Start: 12/17/21 09:10 Freq: Status: Active Protocol: Document 12/17/21 10:30 AW (Rec: 12/17/21 12:52 AW [id number]) Manual Assessments Joint Mobility Assessment Joint Mobility Assessment GH inferior and posterior glides WNL bilaterally. Right A/C and S/C joints TTP. Clavicles and scapulae rotate WNL during UE elevation PT-OP-H Neuro Start: 12/17/21 09:10 Freq: Status: Active Protocol: Document 12/17/21 10:30 AW (Rec: 12/17/21 12:47 AW [id number]) Sensation Evaluation Gross Sensation Gross Sensation WNL Deep Tendon Reflex & Clonus Assessment Deep Tendon Reflex Bilateral Bicep Deep Tendon Reflex 1+ Diminished PT-OP-J Posture/Palpation/Skin Start: 12/17/21 09:10 Freq: Status: Active Protocol: Document 12/17/21 10:30 AW (Rec: 12/17/21 12:51 AW [id number]) Posture Evaluation Position Sitting Head/C-Spine Posture Forward Head Shoulder Posture (L) Elevated,(R) Elevated Palpation Assessment Location scalenes, SCM, UT Palpation Findings Soft Tissue Tightness Palpation Details Increased tone especially with right side scalenes and SCM. UT with increased tone bilaterally PT-OP-K Range of Motion Start: 12/17/21 09:10 Freq: Status: Active Protocol: Document 12/17/21 10:30 AW (Rec: 12/17/21 12:47 AW [id number]) Cervical Spine Range of Motion Cervical Spine Active Testing Position Sitting Flexion 39 Extension 40 Rotation Left 50 Rotation Right 50 Lateral Flexion Left 30 Lateral Flexion Right 20 ROM Limitations Soft Tissue Tightness,Pain Comments Right lateral flexion painful Shoulder Goniometric Range of Motion Shoulder Right Shoulder ROM WFL Yes Testing Position Sitting Flexion 170 Abduction 180 External Rotation at 0 degrees Abduction 65 Internal Rotation Behind Back (text) T6 Comments Internal rotation painful at end range on the right left Shoulder ROM WFL Yes Testing Position Sitting Flexion 170 Abduction 180 External Rotation at 0 degrees Abduction 70 Internal Rotation Behind Back (text) T8 Shoulder ROM Limitations Shoulder ROM Limitations Pain Elbow/Forearm Range of Motion Elbow/Forearm bilat Comments WNL. No pain with AROM or PROM PT-OP-L Special Tests Start: 12/17/21 09:10 Freq: Status: Active Protocol: Document 12/17/21 10:30 AW (Rec: 12/17/21 12:54 AW [id number]) Special Tests Cervical Spine Special Tests Spurling's Test Test Results negative bilaterally Shoulder Special Tests Dupont Augie Impingement Test Results vaguely positive right side AC Joint Compression Test Results positive right side PT-OP-M Strength Start: 12/17/21 09:10 Freq: Status: Active Protocol: Document 12/17/21 10:30 AW (Rec: 12/17/21 12:54 AW [id number]) Shoulder Strength Shoulder Manual Muscle Testing bilat Flexion 5 Normal Extension 5 Normal Abduction (C5) 5 Normal External Rotation 4+ Good+ Internal Rotation 5 Normal Comments MMT consistent side to side but painful in resisted ER on the right only Elbow/Forearm Strength Elbow and Forearm Manual Muscle Testing bilat Flexion (C6) 5 Normal Extension (C7) 5 Normal PT-OP-Q Treatments Start: 12/17/21 09:10 Freq: Status: Active Protocol: Document 01/16/22 08:29 AW (Rec: 01/16/22 09:46 AW [id number]) Therapeutic Exercises Sidelying Exercises GH ER Sidelying Exercise Name GH ER Side right Resistance AROM Reps/Minutes x20 Comments HEP review Sitting Exercises isometric GH Sitting Exercise Name IR, ER, flex, ABD Side right table slide Sitting Exercise Name table slide - flexion, ABD to ~90 degrees only Side bilateral Equipment Used tx table, emilee stood Reps/Minutes x15 Comments HEP Standing Exercises pendulum Standing Exercise Name pendulum Side right Comments cw/ccw; HEP review Manual Therapy Treatment Soft Tissue Mobilization UT, SCM, scalenes Body Location UT, SCM, scalenes - primarily right side Mobilization Type Rolling,Strumming,Sustained Pressure Intensity/Depth Moderate Body Position Hooklying Joint Mobilizations scapulothoracic Joint scapulothoracic Direction inferior, medial Body Position Sidelying Comments grade II-III Taping K tape Body Location R A/C joint Treatment Focus pain mgmt Type of Tape K tape Skin Inspection intact Comments Two I-strips with max tension over AC joint, no tension at anchors Self-Care/Home Management Treatment Education Patient Education Joint Protection,Safety Other Education Educated pt to remove tape if irritating and leave on no longer than 4 days. PT-OP-R Modalities Start: 12/17/21 09:10 Freq: Status: Active Protocol: Document 01/02/22 09:41 AW (Rec: 01/02/22 11:18 AW [id number]) Hot Pack/Cold Pack Treatment Cold Pack Location r shoulder Patient Position Hooklying Treatment Duration (minutes) 15 Patient Tolerance Good PT-OP-T Assessment and Plan Start: 12/17/21 09:10 Freq: Status: Active Protocol: Document 01/16/22 08:29 AW (Rec: 01/16/22 09:46 AW [id number]) Physical Therapy Assessment Goals Four Impairment difficulty with gardening tasks [employer] Goal (LTG) Pt will use long-handles loppers for pruning 30 minutes without increase in baseline pain. LTG Duration 10 weeks - 02/25/22 Three Impairment cervical ROM Impairment limitation in lateral flexion primarily [employer] Goal (LTG) Pt will improve cervical lateral flexion to 30 degrees or greater bilaterally without increase in pain. LTG Duration 10 weeks - 02/25/22 Two Impairment QuickDash - 36% impaired Nursing Home Goal (LTG) Pt will score 15% or less on QuickDash as a measure of improved function in daily activities LTG Duration 10 weeks - 02/25/22 One Impairment Pt lacks HEP Short Term Goal (STG) Pt will be instructed in HEP for ROM, strength, and reduction in cervical/shoulder muscle tone STG Duration 5 weeks - 01/21/22 [employer] Goal (LTG) Pt will be independent with HEP to manage pain symptoms independently LTG Duration 10 weeks - 02/25/22 Assessment Summary Assessment Trialed KT tape for AC joint and isometric shoulder. Pt reporting slow improvement and will schedule more visits. Physical Therapy Plan Frequency and Duration Frequency of Treatment 1-2x/week Duration of Treatment 10 weeks Plan of Care Start Date 12/17/21 Plan of Care End Date 02/25/22 Therapeutic Interventions Therapeutic Interventions Home Exercise Program,Joint Mobilizations,Manual Therapy, Neuromuscular Re-education, Self-Care/Home Management,Soft Tissue Mobilization,Taping, Therapeutic Activities, Therapeutic Exercises Modalities Cold Pack/Ice Massage,Electric Stimulation,Hot Packs Next Visit Focus/Plan Next Note Type Treatment Note Next Visit Plan assess response to isometric shoulder, KT tape. Continue AAROM and progress to vs gravity as tolerated
--- NOTE | 2022-01-30 13:57 | PT.OTN ---
Current Diagnoses Foreign body in other parts of alimentary tract, initial encounter (01/30/22) Physical Therapy Treatment Note PT-OP-A Visit Information Start: 12/17/21 09:10 Freq: Status: Active Protocol: Document 01/30/22 12:16 AW (Rec: 01/30/22 13:57 AW [id number]) Out-Patient Physical Therapy Visit Information Visit Information Visit Type Treatment Note Visit Start Time 13:00 Visit Stop Time 13:45 Visit Number 08/18 before KX Number of SUPPLY ANALYST Visits 0 Evaluation Information Evaluation Date 12/17/21 PT-OP-B Current Condition Start: 12/17/21 09:10 Freq: Status: Active Protocol: Document 12/17/21 10:30 AW (Rec: 12/17/21 10:31 AW [id number]) Current Condition History of Current Condition Onset Date September 2021 Current Complaints right shoulder pain History of Current Condition Chana was pruning with long loppers ~45 minutes in early September. She noticed feeling wimpy and started to have pain later that day. She had neck, jaw, shoulder, and collarbone pain. She had difficulty swallowing. All symptoms other than shoulder pain dissipated within a day. She has history of cervical DDD and notes she hasn't been working out like she used to before COV. 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 She then noticed her axillary lymph nodes felt painful and lumpier than usual . Ice and heat have been somewhat effective. She has had one dry needling appointment with Dr. Cuenca and plans to do more. Prior Treatments and Tests No imaging. Dry needling one treatment on 12/06 - somewhat effective. Hopes to keep interventions as conservative as possible Future Testing and Treatments Planned Pt likely to continue with dry needling Treatment Goals Patient/Caregiver Goals Walking more. Doing more. Puttering around the yard and gardening without pain Prior Functional Status Baseline Function- ADL's Independent Baseline Function- Mobility Independent Baseline Function- Recreation/Hobbies Able to perform gardening tasks without pain Current Functional Impairments (Reported) Functional Limitations- Recreation/ Pain with gardening and self- Hobbies care tasks. PT-OP-C Subjective Start: 12/17/21 09:10 Freq: Status: Active Protocol: Document 01/30/22 12:16 AW (Rec: 01/30/22 13:57 AW [id number]) OP-PT Subjective Patient Comments Patient Comments Pt cancelled last week due to vertigo symptoms. Left ear still feels full and achy. She sees Dr. Cuenca today for dry needling and will mention this episode. 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 [place] well enough by to drive. Shoulder pain has been off and on. Isometric flexion from HEP has been irritating. PT-OP-F Manual Assessment Start: 12/17/21 09:10 Freq: Status: Active Protocol: Document 12/17/21 10:30 AW (Rec: 12/17/21 12:52 AW [id number]) Manual Assessments Joint Mobility Assessment Joint Mobility Assessment GH inferior and posterior glides WNL bilaterally. Right A/C and S/C joints TTP. Clavicles and scapulae rotate WNL during UE elevation PT-OP-H Neuro Start: 12/17/21 09:10 Freq: Status: Active Protocol: Document 12/17/21 10:30 AW (Rec: 12/17/21 12:47 AW [id number]) Sensation Evaluation Gross Sensation Gross Sensation WNL Deep Tendon Reflex & Clonus Assessment Deep Tendon Reflex Bilateral Bicep Deep Tendon Reflex 1+ Diminished PT-OP-J Posture/Palpation/Skin Start: 12/17/21 09:10 Freq: Status: Active Protocol: Document 12/17/21 10:30 AW (Rec: 12/17/21 12:51 AW [id number]) Posture Evaluation Position Sitting Head/C-Spine Posture Forward Head Shoulder Posture (L) Elevated,(R) Elevated Palpation Assessment Location scalenes, SCM, UT Palpation Findings Soft Tissue Tightness Palpation Details Increased tone especially with right side scalenes and SCM. UT with increased tone bilaterally PT-OP-K Range of Motion Start: 12/17/21 09:10 Freq: Status: Active Protocol: Document 12/17/21 10:30 AW (Rec: 12/17/21 12:47 AW [id number]) Cervical Spine Range of Motion Cervical Spine Active Testing Position Sitting Flexion 39 Extension 40 Rotation Left 50 Rotation Right 50 Lateral Flexion Left 30 Lateral Flexion Right 20 ROM Limitations Soft Tissue Tightness,Pain Comments Right lateral flexion painful Shoulder Goniometric Range of Motion Shoulder Right Shoulder ROM WFL Yes Testing Position Sitting Flexion 170 Abduction 180 External Rotation at 0 degrees Abduction 65 Internal Rotation Behind Back (text) T6 Comments Internal rotation painful at end range on the right left Shoulder ROM WFL Yes Testing Position Sitting Flexion 170 Abduction 180 External Rotation at 0 degrees Abduction 70 Internal Rotation Behind Back (text) T8 Shoulder ROM Limitations Shoulder ROM Limitations Pain Elbow/Forearm Range of Motion Elbow/Forearm bilat Comments WNL. No pain with AROM or PROM PT-OP-L Special Tests Start: 12/17/21 09:10 Freq: Status: Active Protocol: Document 12/17/21 10:30 AW (Rec: 12/17/21 12:54 AW [id number]) Special Tests Cervical Spine Special Tests Spurling's Test Test Results negative bilaterally Shoulder Special Tests Dupont Augie Impingement Test Results vaguely positive right side AC Joint Compression Test Results positive right side PT-OP-M Strength Start: 12/17/21 09:10 Freq: Status: Active Protocol: Document 12/17/21 10:30 AW (Rec: 12/17/21 12:54 AW [id number]) Shoulder Strength Shoulder Manual Muscle Testing bilat Flexion 5 Normal Extension 5 Normal Abduction (C5) 5 Normal External Rotation 4+ Good+ Internal Rotation 5 Normal Comments MMT consistent side to side but painful in resisted ER on the right only Elbow/Forearm Strength Elbow and Forearm Manual Muscle Testing bilat Flexion (C6) 5 Normal Extension (C7) 5 Normal PT-OP-Q Treatments Start: 12/17/21 09:10 Freq: Status: Active Protocol: Document 01/30/22 12:16 AW (Rec: 01/30/22 13:57 AW [id number]) Cardio Equipment Upper Body Ergometer (UBE) Duration (Minutes) 5 RPM 60 Seat Position 7 Height 2 Other fwd/bwd; no A/C irritation today Therapeutic Exercises Supine Exercises AAROM Supine Exercise Name AAROM - flexion ashley Side right Equipment Used dowel Reps/Minutes x20 Comments pain free range; HEP Sitting Exercises isometric GH Sitting Exercise Name IR, ER, flex, ABD Side right Comments strike flexion from HEP due to irritation table slide Sitting Exercise Name table slide - flexion, scaption in tolerable range Side bilateral Equipment Used tx table, emilee stood Reps/Minutes x15 Comments HEP cervical AROM Sitting Exercise Name cervical AROM - flex/ext/rot/ SB Resistance AROM Comments remains limited in lateral flexion Standing Exercises wall slides Standing Exercise Name wall slides - scaption Side right Comments HEP Manual Therapy Treatment Soft Tissue Mobilization UT, SCM, scalenes Body Location UT, SCM, scalenes, SCM - primarily right side Mobilization Type Rolling,Strumming,Sustained Pressure Intensity/Depth Moderate Body Position Hooklying Joint Mobilizations scapulothoracic Joint scapulothoracic Direction inferior, medial Body Position Sidelying Comments grade II-III 1st rib Joint 1st rib Direction inferior Grade III Body Position Hooklying Taping K tape Body Location R A/C joint Treatment Focus pain mgmt Type of Tape K tape Skin Inspection intact Comments Two I-strips with max tension over AC joint, no tension at anchors Self-Care/Home Management Treatment Education Patient Education Joint Protection,Pain Management PT-OP-R Modalities Start: 12/17/21 09:10 Freq: Status: Active Protocol: Document 01/02/22 09:41 AW (Rec: 01/02/22 11:18 AW [id number]) Hot Pack/Cold Pack Treatment Cold Pack Location r shoulder Patient Position Hooklying Treatment Duration (minutes) 15 Patient Tolerance Good PT-OP-T Assessment and Plan Start: 12/17/21 09:10 Freq: Status: Active Protocol: Document 01/30/22 12:16 AW (Rec: 01/30/22 13:57 AW [id number]) Physical Therapy Assessment Goals Four Impairment difficulty with gardening tasks [employer] Activities Coordinator Goal (LTG) Pt will use long-handles loppers for pruning 30 minutes without increase in baseline pain. LTG Duration 10 weeks - 02/25/22 Three Impairment cervical ROM Impairment limitation in lateral flexion primarily Correction Goal (LTG) Pt will improve cervical lateral flexion to 30 degrees or greater bilaterally without increase in pain. LTG Duration 10 weeks - 02/25/22 Two Impairment QuickDash - 36% impaired [facility] Coordinator Goal (LTG) Pt will score 15% or less on QuickDash as a measure of improved function in daily activities LTG Duration 10 weeks - 02/25/22 One Impairment Pt lacks HEP Short Term Goal (STG) Pt will be instructed in HEP for ROM, strength, and reduction in cervical/shoulder muscle tone STG Duration 5 weeks - 01/21/22 Correction Goal (LTG) Pt will be independent with HEP to manage pain symptoms independently LTG Duration 10 weeks - 02/25/22 Assessment Summary Assessment Pt thought KT tape provided good support and would like to continue. Cervical lateral flexion remains limited bilaterally and pt continues to report pain in scalenes and pec minor. Performed scapulothoracic mobs today into depression and rotation along with pec minor STM. Pt to follow up with PCP about left ear fullness and dizzy episode last week. Physical Therapy Plan Frequency and Duration Frequency of Treatment 1-2x/week Duration of Treatment 10 weeks Plan of Care Start Date 12/17/21 Plan of Care End Date 02/25/22 Therapeutic Interventions Therapeutic Interventions Home Exercise Program,Joint Mobilizations,Manual Therapy, Neuromuscular Re-education, Self-Care/Home Management,Soft Tissue Mobilization,Taping, Therapeutic Activities, Therapeutic Exercises Modalities Cold Pack/Ice Massage,Electric Stimulation,Hot Packs Next Visit Focus/Plan Next Note Type Treatment Note Next Visit Plan follow up on vertigo-like symptoms, continue AAROM, progress shoulder strength as tolerated
--- NOTE | 2022-02-12 17:04 | PT.OTN ---
Current Diagnoses Foreign body in other parts of alimentary tract, initial encounter (02/12/22) Physical Therapy Treatment Note PT-OP-A Visit Information Start: 12/17/21 09:10 Freq: Status: Active Protocol: Document 02/12/22 14:14 AW (Rec: 02/12/22 17:04 AW [id number]) Out-Patient Physical Therapy Visit Information Visit Information Visit Type Treatment Note Visit Start Time 16:05 Visit Stop Time 16:45 Total Visit Minutes 40 Visit Number 09/17 before KX Number of RECORDS ANALYSIS MANAGER Visits 0 Evaluation Information Evaluation Date 12/17/21 PT-OP-B Current Condition Start: 12/17/21 09:10 Freq: Status: Active Protocol: Document 12/17/21 10:30 AW (Rec: 12/17/21 10:31 AW [id number]) Current Condition History of Current Condition Onset Date September 2021 Current Complaints right shoulder pain History of Current Condition Chana was pruning with long loppers ~45 minutes in early September. She noticed feeling wimpy and started to have pain later that day. She had neck, jaw, shoulder, and collarbone pain. She had difficulty swallowing. All symptoms other than shoulder pain dissipated within a day. She has history of cervical DDD and notes she hasn't been working out like she used to before COV. 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 She then noticed her axillary lymph nodes felt painful and lumpier than usual . Ice and heat have been somewhat effective. She has had one dry needling appointment with Dr. Cuenca and plans to do more. Prior Treatments and Tests No imaging. Dry needling one treatment on 12/06 - somewhat effective. Hopes to keep interventions as conservative as possible Future Testing and Treatments Planned Pt likely to continue with dry needling Treatment Goals Patient/Caregiver Goals Walking more. Doing more. Puttering around the yard and gardening without pain Prior Functional Status Baseline Function- ADL's Independent Baseline Function- Mobility Independent Baseline Function- Recreation/Hobbies Able to perform gardening tasks without pain Current Functional Impairments (Reported) Functional Limitations- Recreation/ Pain with gardening and self- Hobbies care tasks. PT-OP-C Subjective Start: 12/17/21 09:10 Freq: Status: Active Protocol: Document 02/12/22 14:14 AW (Rec: 02/12/22 17:04 AW [id number]) OP-PT Subjective Patient Comments Patient Comments Chana still feels like left ear is plugged but imaging is negative. She is getting new glasses at end of the month. PT-OP-F Manual Assessment Start: 12/17/21 09:10 Freq: Status: Active Protocol: Document 12/17/21 10:30 AW (Rec: 12/17/21 12:52 AW [id number]) Manual Assessments Joint Mobility Assessment Joint Mobility Assessment GH inferior and posterior glides WNL bilaterally. Right A/C and S/C joints TTP. Clavicles and scapulae rotate WNL during UE elevation PT-OP-H Neuro Start: 12/17/21 09:10 Freq: Status: Active Protocol: Document 12/17/21 10:30 AW (Rec: 12/17/21 12:47 AW [id number]) Sensation Evaluation Gross Sensation Gross Sensation WNL Deep Tendon Reflex & Clonus Assessment Deep Tendon Reflex Bilateral Bicep Deep Tendon Reflex 1+ Diminished PT-OP-J Posture/Palpation/Skin Start: 12/17/21 09:10 Freq: Status: Active Protocol: Document 12/17/21 10:30 AW (Rec: 12/17/21 12:51 AW [id number]) Posture Evaluation Position Sitting Head/C-Spine Posture Forward Head Shoulder Posture (L) Elevated,(R) Elevated Palpation Assessment Location scalenes, SCM, UT Palpation Findings Soft Tissue Tightness Palpation Details Increased tone especially with right side scalenes and SCM. UT with increased tone bilaterally PT-OP-K Range of Motion Start: 12/17/21 09:10 Freq: Status: Active Protocol: Document 12/17/21 10:30 AW (Rec: 12/17/21 12:47 AW [id number]) Cervical Spine Range of Motion Cervical Spine Active Testing Position Sitting Flexion 39 Extension 40 Rotation Left 50 Rotation Right 50 Lateral Flexion Left 30 Lateral Flexion Right 20 ROM Limitations Soft Tissue Tightness,Pain Comments Right lateral flexion painful Shoulder Goniometric Range of Motion Shoulder Right Shoulder ROM WFL Yes Testing Position Sitting Flexion 170 Abduction 180 External Rotation at 0 degrees Abduction 65 Internal Rotation Behind Back (text) T6 Comments Internal rotation painful at end range on the right left Shoulder ROM WFL Yes Testing Position Sitting Flexion 170 Abduction 180 External Rotation at 0 degrees Abduction 70 Internal Rotation Behind Back (text) T8 Shoulder ROM Limitations Shoulder ROM Limitations Pain Elbow/Forearm Range of Motion Elbow/Forearm bilat Comments WNL. No pain with AROM or PROM PT-OP-L Special Tests Start: 12/17/21 09:10 Freq: Status: Active Protocol: Document 12/17/21 10:30 AW (Rec: 12/17/21 12:54 AW [id number]) Special Tests Cervical Spine Special Tests Spurling's Test Test Results negative bilaterally Shoulder Special Tests Dupont Augie Impingement Test Results vaguely positive right side AC Joint Compression Test Results positive right side PT-OP-M Strength Start: 12/17/21 09:10 Freq: Status: Active Protocol: Document 12/17/21 10:30 AW (Rec: 12/17/21 12:54 AW [id number]) Shoulder Strength Shoulder Manual Muscle Testing bilat Flexion 5 Normal Extension 5 Normal Abduction (C5) 5 Normal External Rotation 4+ Good+ Internal Rotation 5 Normal Comments MMT consistent side to side but painful in resisted ER on the right only Elbow/Forearm Strength Elbow and Forearm Manual Muscle Testing bilat Flexion (C6) 5 Normal Extension (C7) 5 Normal PT-OP-Q Treatments Start: 12/17/21 09:10 Freq: Status: Active Protocol: Document 02/12/22 14:14 AW (Rec: 02/12/22 17:04 AW [id number]) Cardio Equipment Upper Body Ergometer (UBE) Duration (Minutes) 5 RPM 60 Seat Position 7 Height 2 Other fwd/bwd; no A/C irritation today Therapeutic Exercises Supine Exercises supine LT recruitment Supine Exercise Name supine LT recruitment Comments HEP review diaphragmatic breathing Supine Exercise Name diaphragmatic breathing Side bilateral Reps/Minutes 2 min Comments during stretches Sitting Exercises horizontal adduction Sitting Exercise Name horizontal adduction Side right Comments as PT gaps A/C jt cervical AROM Sitting Exercise Name cervical AROM - flex/ext/rot/ SB Resistance AROM Comments remains limited in lateral flexion UT stretch Sitting Exercise Name UT stretch Comments HEP Standing Exercises wall slides Standing Exercise Name wall slides - scaption Side right Comments HEP review pendulum Standing Exercise Name pendulum Side right Comments cw/ccw; HEP review Manual Therapy Treatment Soft Tissue Mobilization UT, SCM, scalenes Body Location UT, SCM, scalenes, SCM - primarily right side Mobilization Type Rolling,Strumming,Sustained Pressure Intensity/Depth Moderate Body Position Hooklying Comments with contract/relax right lateral flexion which improved pain but did not improve ROM Joint Mobilizations 1st rib Joint 1st rib Direction inferior Grade III Body Position Hooklying Taping K tape Body Location R A/C joint Treatment Focus pain mgmt Type of Tape K tape Skin Inspection intact Comments Two I-strips with max tension over AC joint, no tension at anchors PT-OP-R Modalities Start: 12/17/21 09:10 Freq: Status: Active Protocol: Document 01/02/22 09:41 AW (Rec: 01/02/22 11:18 AW [id number]) Hot Pack/Cold Pack Treatment Cold Pack Location r shoulder Patient Position Hooklying Treatment Duration (minutes) 15 Patient Tolerance Good PT-OP-T Assessment and Plan Start: 12/17/21 09:10 Freq: Status: Active Protocol: Document 02/12/22 14:14 AW (Rec: 02/12/22 17:04 AW [id number]) Physical Therapy Assessment Goals Four Impairment difficulty with gardening tasks Longterm Goal (LTG) Pt will use long-handles loppers for pruning 30 minutes without increase in baseline pain. 02/12/22 - Slow progress LTG Duration 10 weeks - 02/25/22 Three Impairment cervical ROM Impairment limitation in lateral flexion primarily Longterm Goal (LTG) Pt will improve cervical lateral flexion to 30 degrees or greater bilaterally without increase in pain. 02/12/22 - ROM remains limited and painful LTG Duration 10 weeks - 02/25/22 Two Impairment QuickDash - 36% impaired Electric Tape Slitter Goal (LTG) Pt will score 15% or less on QuickDash as a measure of improved function in daily activities LTG Duration 10 weeks - 02/25/22 One Impairment Pt lacks HEP Short Term Goal (STG) Pt will be instructed in HEP for ROM, strength, and reduction in cervical/shoulder muscle tone STG Duration 5 weeks - 01/21/22 Electric Tape Slitter Goal (LTG) Pt will be independent with HEP to manage pain symptoms independently LTG Duration 10 weeks - 02/25/22 Progress Towards Goals Progress Towards Goals Slow Progress - Other Progress Comments Pt's symptoms are variably irritable. Trend indicates slow improvement but small movements set pt back easily. Assessment Summary Assessment Pt reports fair response to dry needling. She feels she may be trying too many things at once with PT, needling, and massage. Scalenes remain significantly hypertonic. Pt benefits from cervical traction and A/C joint gapping . Physical Therapy Plan Frequency and Duration Frequency of Treatment 1-2x/week Duration of Treatment 10 weeks Plan of Care Start Date 12/17/21 Plan of Care End Date 02/25/22 Therapeutic Interventions Therapeutic Interventions Home Exercise Program,Joint Mobilizations,Manual Therapy, Neuromuscular Re-education, Self-Care/Home Management,Soft Tissue Mobilization,Taping, Therapeutic Activities, Therapeutic Exercises Modalities Cold Pack/Ice Massage,Electric Stimulation,Hot Packs Next Visit Focus/Plan Next Note Type Treatment Note Next Visit Plan KT tape A/C jt; continue cervical AROM, shoulder AAROM, A/C gapping; progress shoulder strength as tolerated
--- NOTE | 2022-02-19 13:59 | PT.OTN ---
Current Diagnoses Foreign body in other parts of alimentary tract, initial encounter (02/19/22) Physical Therapy Treatment Note PT-OP-A Visit Information Start: 12/17/21 09:10 Freq: Status: Active Protocol: Document 02/19/22 12:59 AW (Rec: 02/19/22 13:59 AW [id number]) Out-Patient Physical Therapy Visit Information Visit Information Visit Type Treatment Note Visit Start Time 13:00 Visit Stop Time 13:44 Total Visit Minutes 44 Visit Number 10/18 before KX Number of JET HANDLER Visits 0 Evaluation Information Evaluation Date 12/17/21 PT-OP-B Current Condition Start: 12/17/21 09:10 Freq: Status: Active Protocol: Document 12/17/21 10:30 AW (Rec: 12/17/21 10:31 AW [id number]) Current Condition History of Current Condition Onset Date September 2021 Current Complaints right shoulder pain History of Current Condition Chana was pruning with long loppers ~45 minutes in early September. She noticed feeling wimpy and started to have pain later that day. She had neck, jaw, shoulder, and collarbone pain. She had difficulty swallowing. All symptoms other than shoulder pain dissipated within a day. She has history of cervical DDD and notes she hasn't been working out like she used to before COV. 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 She then noticed her axillary lymph nodes felt painful and lumpier than usual . Ice and heat have been somewhat effective. She has had one dry needling appointment with Dr. Cuenca and plans to do more. Prior Treatments and Tests No imaging. Dry needling one treatment on 12/06 - somewhat effective. Hopes to keep interventions as conservative as possible Future Testing and Treatments Planned Pt likely to continue with dry needling Treatment Goals Patient/Caregiver Goals Walking more. Doing more. Puttering around the yard and gardening without pain Prior Functional Status Baseline Function- ADL's Independent Baseline Function- Mobility Independent Baseline Function- Recreation/Hobbies Able to perform gardening tasks without pain Current Functional Impairments (Reported) Functional Limitations- Recreation/ Pain with gardening and self- Hobbies care tasks. PT-OP-C Subjective Start: 12/17/21 09:10 Freq: Status: Active Protocol: Document 02/19/22 12:59 AW (Rec: 02/19/22 13:59 AW [id number]) OP-PT Subjective Patient Comments Patient Comments Chana will see Dr. Cuenca again for dry needling later today. PT-OP-F Manual Assessment Start: 12/17/21 09:10 Freq: Status: Active Protocol: Document 12/17/21 10:30 AW (Rec: 12/17/21 12:52 AW [id number]) Manual Assessments Joint Mobility Assessment Joint Mobility Assessment GH inferior and posterior glides WNL bilaterally. Right A/C and S/C joints TTP. Clavicles and scapulae rotate WNL during UE elevation PT-OP-H Neuro Start: 12/17/21 09:10 Freq: Status: Active Protocol: Document 12/17/21 10:30 AW (Rec: 12/17/21 12:47 AW [id number]) Sensation Evaluation Gross Sensation Gross Sensation WNL Deep Tendon Reflex & Clonus Assessment Deep Tendon Reflex Bilateral Bicep Deep Tendon Reflex 1+ Diminished PT-OP-J Posture/Palpation/Skin Start: 12/17/21 09:10 Freq: Status: Active Protocol: Document 12/17/21 10:30 AW (Rec: 12/17/21 12:51 AW [id number]) Posture Evaluation Position Sitting Head/C-Spine Posture Forward Head Shoulder Posture (L) Elevated,(R) Elevated Palpation Assessment Location scalenes, SCM, UT Palpation Findings Soft Tissue Tightness Palpation Details Increased tone especially with right side scalenes and SCM. UT with increased tone bilaterally PT-OP-K Range of Motion Start: 12/17/21 09:10 Freq: Status: Active Protocol: Document 12/17/21 10:30 AW (Rec: 12/17/21 12:47 AW [id number]) Cervical Spine Range of Motion Cervical Spine Active Testing Position Sitting Flexion 39 Extension 40 Rotation Left 50 Rotation Right 50 Lateral Flexion Left 30 Lateral Flexion Right 20 ROM Limitations Soft Tissue Tightness,Pain Comments Right lateral flexion painful Shoulder Goniometric Range of Motion Shoulder Right Shoulder ROM WFL Yes Testing Position Sitting Flexion 170 Abduction 180 External Rotation at 0 degrees Abduction 65 Internal Rotation Behind Back (text) T6 Comments Internal rotation painful at end range on the right left Shoulder ROM WFL Yes Testing Position Sitting Flexion 170 Abduction 180 External Rotation at 0 degrees Abduction 70 Internal Rotation Behind Back (text) T8 Shoulder ROM Limitations Shoulder ROM Limitations Pain Elbow/Forearm Range of Motion Elbow/Forearm bilat Comments WNL. No pain with AROM or PROM PT-OP-L Special Tests Start: 12/17/21 09:10 Freq: Status: Active Protocol: Document 12/17/21 10:30 AW (Rec: 12/17/21 12:54 AW [id number]) Special Tests Cervical Spine Special Tests Spurling's Test Test Results negative bilaterally Shoulder Special Tests Dupont Augie Impingement Test Results vaguely positive right side AC Joint Compression Test Results positive right side PT-OP-M Strength Start: 12/17/21 09:10 Freq: Status: Active Protocol: Document 12/17/21 10:30 AW (Rec: 12/17/21 12:54 AW [id number]) Shoulder Strength Shoulder Manual Muscle Testing bilat Flexion 5 Normal Extension 5 Normal Abduction (C5) 5 Normal External Rotation 4+ Good+ Internal Rotation 5 Normal Comments MMT consistent side to side but painful in resisted ER on the right only Elbow/Forearm Strength Elbow and Forearm Manual Muscle Testing bilat Flexion (C6) 5 Normal Extension (C7) 5 Normal PT-OP-Q Treatments Start: 12/17/21 09:10 Freq: Status: Active Protocol: Document 02/19/22 12:59 AW (Rec: 02/19/22 13:59 AW [id number]) Therapeutic Exercises Supine Exercises AAROM Supine Exercise Name AAROM - flexion only Side right Equipment Used dowel Reps/Minutes x20 Comments pain free range; HEP supine LT recruitment Supine Exercise Name supine LT recruitment Comments HEP review diaphragmatic breathing Supine Exercise Name diaphragmatic breathing Side bilateral Reps/Minutes 2 min Comments during stretches Sitting Exercises horizontal adduction Sitting Exercise Name horizontal adduction Side right Comments as PT gaps A/C jt table slide Sitting Exercise Name table slide - flexion, scaption in tolerable range Side bilateral Equipment Used tx table, emilee stood Reps/Minutes x15 Comments HEP cervical AROM Sitting Exercise Name cervical AROM - flex/ext/rot/ SB Resistance AROM Comments remains limited in lateral flexion Standing Exercises wall slides Standing Exercise Name wall slides - scaption Side right Comments HEP review rows Standing Exercise Name rows Resistance TB1 Reps/Minutes x10 Comments clinic only; max tactile cues to reduce shoulder elevation pendulum Standing Exercise Name pendulum Side right Comments cw/ccw; HEP review Manual Therapy Treatment Soft Tissue Mobilization UT, SCM, scalenes Body Location UT, SCM, scalenes, SCM - primarily right side Mobilization Type Rolling,Strumming,Sustained Pressure Intensity/Depth Moderate Body Position Hooklying Comments with contract/relax right lateral flexion which improved pain but did not improve ROM Joint Mobilizations scapulothoracic Joint scapulothoracic Direction inferior, medial Body Position Sidelying Comments grade II-III 1st rib Joint 1st rib Direction inferior Grade III Body Position Hooklying PT-OP-R Modalities Start: 12/17/21 09:10 Freq: Status: Active Protocol: Document 01/02/22 09:41 AW (Rec: 01/02/22 11:18 AW [id number]) Hot Pack/Cold Pack Treatment Cold Pack Location r shoulder Patient Position Hooklying Treatment Duration (minutes) 15 Patient Tolerance Good PT-OP-T Assessment and Plan Start: 12/17/21 09:10 Freq: Status: Active Protocol: Document 02/19/22 12:59 AW (Rec: 02/19/22 13:59 AW [id number]) Physical Therapy Assessment Goals Four Impairment difficulty with gardening tasks [facility] Goal (LTG) Pt will use long-handles loppers for pruning 30 minutes without increase in baseline pain. 02/12/22 - Slow progress LTG Duration 10 weeks - 02/25/22 Three Impairment cervical ROM Impairment limitation in lateral flexion primarily [facility] Goal (LTG) Pt will improve cervical lateral flexion to 30 degrees or greater bilaterally without increase in pain. 02/12/22 - ROM remains limited and painful LTG Duration 10 weeks - 02/25/22 Two Impairment QuickDash - 36% impaired [facility] Goal (LTG) Pt will score 15% or less on QuickDash as a measure of improved function in daily activities LTG Duration 10 weeks - 02/25/22 One Impairment Pt lacks HEP Short Term Goal (STG) Pt will be instructed in HEP for ROM, strength, and reduction in cervical/shoulder muscle tone STG Duration 5 weeks - 01/21/22 MET [facility] Goal (LTG) Pt will be independent with HEP to manage pain symptoms independently LTG Duration 10 weeks - 02/25/22 PROGRESSING Progress Towards Goals Progress Towards Goals Slow Progress - Other Progress Comments Pt's symptoms are variably irritable. Trend indicates slow improvement but small movements set pt back easily. Assessment Summary Assessment Pt has dry needling appointment later today so declined taping. Educated pt on where to purchase KT tape if beneficial may be able to replicate at home. Will continue plan of care as pt is making small improvements over time though remains significantly hypertonic in scalenes, SCM, and upper traps which limits her cervical ROM . Physical Therapy Plan Frequency and Duration Frequency of Treatment 1-2x/week Duration of Treatment 6 weeks Plan of Care Start Date 02/26/22 Plan of Care End Date 04/09/22 Therapeutic Interventions Therapeutic Interventions Home Exercise Program,Joint Mobilizations,Manual Therapy, Neuromuscular Re-education, Self-Care/Home Management,Soft Tissue Mobilization,Taping, Therapeutic Activities, Therapeutic Exercises Modalities Cold Pack/Ice Massage,Electric Stimulation,Hot Packs Next Visit Focus/Plan Next Note Type Treatment Note Next Visit Plan KT tape A/C jt; continue cervical AROM, shoulder AAROM, A/C gapping; progress shoulder strength as tolerated
--- NOTE | 2022-02-19 13:59 | PT.OPPOC ---
Physical, Occupational & Speech Therapy At [facility] Current Diagnoses Foreign body in other parts of alimentary tract, initial encounter (02/19/22) Visit Care Team Role Provider Type Francis Cuenca DO Attending Provider Physician Family Provider Primary Care Provider Referring Provider Specialty: Family Practice Address: [address] [place] [address], [facility] Email: Plan Of Care PT-OP-T Assessment and Plan Start: 12/17/21 09:10 Freq: Status: Active Protocol: Document 02/19/22 12:59 AW (Rec: 02/19/22 13:59 AW [id number]) Physical Therapy Assessment Goals Four Impairment difficulty with gardening tasks [facility] Goal (LTG) Pt will use long-handles loppers for pruning 30 minutes without increase in baseline pain. 02/12/22 - Slow progress LTG Duration 10 weeks - 02/25/22 Three Impairment cervical ROM Impairment limitation in lateral flexion primarily [facility] Goal (LTG) Pt will improve cervical lateral flexion to 30 degrees or greater bilaterally without increase in pain. 02/12/22 - ROM remains limited and painful LTG Duration 10 weeks - 02/25/22 Two Impairment QuickDash - 36% impaired [facility] Goal (LTG) Pt will score 15% or less on QuickDash as a measure of improved function in daily activities LTG Duration 10 weeks - 02/25/22 One Impairment Pt lacks HEP Short Term Goal (STG) Pt will be instructed in HEP for ROM, strength, and reduction in cervical/shoulder muscle tone STG Duration 5 weeks - 01/21/22 MET Autopsy Assistant Goal (LTG) Pt will be independent with HEP to manage pain symptoms independently LTG Duration 10 weeks - 02/25/22 PROGRESSING Progress Towards Goals Progress Towards Goals Slow Progress - Other Progress Comments Pt's symptoms are variably irritable. Trend indicates slow improvement but small movements set pt back easily. Assessment Summary Assessment Pt has dry needling appointment later today so declined taping. Educated pt on where to purchase KT tape if beneficial may be able to replicate at home. Will continue plan of care as pt is making small improvements over time though remains significantly hypertonic in scalenes, SCM, and upper traps which limits her cervical ROM . Physical Therapy Plan Frequency and Duration Frequency of Treatment 1-2x/week Duration of Treatment 6 weeks Plan of Care Start Date 02/26/22 Plan of Care End Date 04/09/22 Therapeutic Interventions Therapeutic Interventions Home Exercise Program,Joint Mobilizations,Manual Therapy, Neuromuscular Re-education, Self-Care/Home Management,Soft Tissue Mobilization,Taping, Therapeutic Activities, Therapeutic Exercises Modalities Cold Pack/Ice Massage,Electric Stimulation,Hot Packs Next Visit Focus/Plan Next Note Type Treatment Note Next Visit Plan KT tape A/C jt; continue cervical AROM, shoulder AAROM, A/C gapping; progress shoulder strength as tolerated Plan of Care Dates Plan of Care Start Date 02/26/22 Plan of Care End Date 04/09/22 Electronically Signed by: Annemarie Case, PT 02/19/22 3724 Please Sign and Return: I have reviewed this Plan of Care and certify that the skilled therapy services above are required to meet the patient?s needs. Physician Signature Date Printed Name and Credentials Clinical Instructor Signature Printed Name and Credentials
--- NOTE | 2022-02-26 13:59 | PT.OTN ---
Current Diagnoses Foreign body in other parts of alimentary tract, initial encounter (02/26/22) Physical Therapy Treatment Note PT-OP-A Visit Information Start: 12/17/21 09:10 Freq: Status: Active Protocol: Document 02/26/22 13:00 AW (Rec: 02/26/22 13:59 AW [id number]) Out-Patient Physical Therapy Visit Information Visit Information Visit Type Treatment Note Visit Start Time 13:00 Visit Stop Time 13:43 Total Visit Minutes 43 Visit Number 11/17 before KX Number of ROAD DESIGN ENGINEER Visits 0 Evaluation Information Evaluation Date 12/17/21 PT-OP-B Current Condition Start: 12/17/21 09:10 Freq: Status: Active Protocol: Document 12/17/21 10:30 AW (Rec: 12/17/21 10:31 AW [id number]) Current Condition History of Current Condition Onset Date September 2021 Current Complaints right shoulder pain History of Current Condition Chana was pruning with long loppers ~45 minutes in early September. She noticed feeling wimpy and started to have pain later that day. She had neck, jaw, shoulder, and collarbone pain. She had difficulty swallowing. All symptoms other than shoulder pain dissipated within a day. She has history of cervical DDD and notes she hasn't been working out like she used to before COV. 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 She then noticed her axillary lymph nodes felt painful and lumpier than usual . Ice and heat have been somewhat effective. She has had one dry needling appointment with Dr. Cuenca and plans to do more. Prior Treatments and Tests No imaging. Dry needling one treatment on 12/06 - somewhat effective. Hopes to keep interventions as conservative as possible Future Testing and Treatments Planned Pt likely to continue with dry needling Treatment Goals Patient/Caregiver Goals Walking more. Doing more. Puttering around the yard and gardening without pain Prior Functional Status Baseline Function- ADL's Independent Baseline Function- Mobility Independent Baseline Function- Recreation/Hobbies Able to perform gardening tasks without pain Current Functional Impairments (Reported) Functional Limitations- Recreation/ Pain with gardening and self- Hobbies care tasks. PT-OP-C Subjective Start: 12/17/21 09:10 Freq: Status: Active Protocol: Document 02/26/22 13:00 AW (Rec: 02/26/22 13:59 AW [id number]) OP-PT Subjective Patient Comments Patient Comments Chana felt PT + dry needling last week provided good relief . She has another needling appointment today. Next week will likely be last PT visit. PT-OP-F Manual Assessment Start: 12/17/21 09:10 Freq: Status: Active Protocol: Document 12/17/21 10:30 AW (Rec: 12/17/21 12:52 AW [id number]) Manual Assessments Joint Mobility Assessment Joint Mobility Assessment GH inferior and posterior glides WNL bilaterally. Right A/C and S/C joints TTP. Clavicles and scapulae rotate WNL during UE elevation PT-OP-H Neuro Start: 12/17/21 09:10 Freq: Status: Active Protocol: Document 12/17/21 10:30 AW (Rec: 12/17/21 12:47 AW [id number]) Sensation Evaluation Gross Sensation Gross Sensation WNL Deep Tendon Reflex & Clonus Assessment Deep Tendon Reflex Bilateral Bicep Deep Tendon Reflex 1+ Diminished PT-OP-J Posture/Palpation/Skin Start: 12/17/21 09:10 Freq: Status: Active Protocol: Document 12/17/21 10:30 AW (Rec: 12/17/21 12:51 AW [id number]) Posture Evaluation Position Sitting Head/C-Spine Posture Forward Head Shoulder Posture (L) Elevated,(R) Elevated Palpation Assessment Location scalenes, SCM, UT Palpation Findings Soft Tissue Tightness Palpation Details Increased tone especially with right side scalenes and SCM. UT with increased tone bilaterally PT-OP-K Range of Motion Start: 12/17/21 09:10 Freq: Status: Active Protocol: Document 12/17/21 10:30 AW (Rec: 12/17/21 12:47 AW [id number]) Cervical Spine Range of Motion Cervical Spine Active Testing Position Sitting Flexion 39 Extension 40 Rotation Left 50 Rotation Right 50 Lateral Flexion Left 30 Lateral Flexion Right 20 ROM Limitations Soft Tissue Tightness,Pain Comments Right lateral flexion painful Shoulder Goniometric Range of Motion Shoulder Right Shoulder ROM WFL Yes Testing Position Sitting Flexion 170 Abduction 180 External Rotation at 0 degrees Abduction 65 Internal Rotation Behind Back (text) T6 Comments Internal rotation painful at end range on the right left Shoulder ROM WFL Yes Testing Position Sitting Flexion 170 Abduction 180 External Rotation at 0 degrees Abduction 70 Internal Rotation Behind Back (text) T8 Shoulder ROM Limitations Shoulder ROM Limitations Pain Elbow/Forearm Range of Motion Elbow/Forearm bilat Comments WNL. No pain with AROM or PROM PT-OP-L Special Tests Start: 12/17/21 09:10 Freq: Status: Active Protocol: Document 12/17/21 10:30 AW (Rec: 12/17/21 12:54 AW [id number]) Special Tests Cervical Spine Special Tests Spurling's Test Test Results negative bilaterally Shoulder Special Tests Dupont Augie Impingement Test Results vaguely positive right side AC Joint Compression Test Results positive right side PT-OP-M Strength Start: 12/17/21 09:10 Freq: Status: Active Protocol: Document 12/17/21 10:30 AW (Rec: 12/17/21 12:54 AW [id number]) Shoulder Strength Shoulder Manual Muscle Testing bilat Flexion 5 Normal Extension 5 Normal Abduction (C5) 5 Normal External Rotation 4+ Good+ Internal Rotation 5 Normal Comments MMT consistent side to side but painful in resisted ER on the right only Elbow/Forearm Strength Elbow and Forearm Manual Muscle Testing bilat Flexion (C6) 5 Normal Extension (C7) 5 Normal PT-OP-Q Treatments Start: 12/17/21 09:10 Freq: Status: Active Protocol: Document 02/26/22 13:00 AW (Rec: 02/26/22 13:59 AW [id number]) Therapeutic Exercises Supine Exercises horizontal abd/add Supine Exercise Name horizontal abd/add Side bilateral Comments pt able to reach opposite shoulder bilaterally w/o pain protraction Supine Exercise Name protraction Side bilateral Resistance AROM Reps/Minutes 3SH x 10 Comments <90 degrees flexion cervical retraction Supine Exercise Name cervical retraction Comments cued pain-free ROM supine LT recruitment Supine Exercise Name supine LT recruitment Comments HEP review diaphragmatic breathing Supine Exercise Name diaphragmatic breathing Side bilateral Reps/Minutes 2 min Comments during stretches Prone Exercises prone W Prone Exercise Name prone W Side bilateral Comments slight anterior pinch; dc'ed GH extension Prone Exercise Name GH extension/superman Side bilateral Resistance AROM Reps/Minutes 5SH x 15 Comments good strech in front Standing Exercises pendulum Standing Exercise Name pendulum Side right Comments cw/ccw; HEP review Manual Therapy Treatment Soft Tissue Mobilization pec minor Body Location right pec minor Comments R pec minor release with stab of the scapula and shoulder depression UT, SCM, scalenes Body Location UT, SCM, scalenes, SCM - primarily right side Mobilization Type Rolling,Strumming,Sustained Pressure Intensity/Depth Moderate Body Position Hooklying Comments with contract/relax right lateral flexion which improved pain but did not improve ROM Joint Mobilizations scapulothoracic Joint scapulothoracic Direction inferior, medial Body Position Sidelying Comments grade II-III R GH MWM Joint R GH Comments inferior and posterior glides with GH rotation in ~40 degrees abduction A/C and S/C Joint A/C only Comments gapping 1st rib Joint 1st rib Direction inferior Grade III Body Position Hooklying PT-OP-R Modalities Start: 12/17/21 09:10 Freq: Status: Active Protocol: Document 01/02/22 09:41 AW (Rec: 01/02/22 11:18 AW [id number]) Hot Pack/Cold Pack Treatment Cold Pack Location r shoulder Patient Position Hooklying Treatment Duration (minutes) 15 Patient Tolerance Good PT-OP-T Assessment and Plan Start: 12/17/21 09:10 Freq: Status: Active Protocol: Document 02/26/22 13:00 AW (Rec: 02/26/22 13:59 AW [id number]) Physical Therapy Assessment Goals Four Impairment difficulty with gardening tasks [facility] Goal (LTG) Pt will use long-handles loppers for pruning 30 minutes without increase in baseline pain. 02/12/22 - Slow progress LTG Duration 10 weeks - 02/25/22 Three Impairment cervical ROM Impairment limitation in lateral flexion primarily [employer] Goal (LTG) Pt will improve cervical lateral flexion to 30 degrees or greater bilaterally without increase in pain. 02/12/22 - ROM remains limited and painful LTG Duration 10 weeks - 02/25/22 Two Impairment QuickDash - 36% impaired [employer] Goal (LTG) Pt will score 15% or less on QuickDash as a measure of improved function in daily activities LTG Duration 10 weeks - 02/25/22 One Impairment Pt lacks HEP Short Term Goal (STG) Pt will be instructed in HEP for ROM, strength, and reduction in cervical/shoulder muscle tone STG Duration 5 weeks - 01/21/22 MET [employer] Goal (LTG) Pt will be independent with HEP to manage pain symptoms independently LTG Duration 10 weeks - 02/25/22 PROGRESSING Assessment Summary Assessment Continued STM for increased tone in scalenes, SCM, upper traps. Pt was able to cross her arms to opposite shoulders in supine today without pain. Cervical ROM remains painful and limited. Physical Therapy Plan Frequency and Duration Frequency of Treatment 1-2x/week Duration of Treatment 6 weeks Plan of Care Start Date 02/26/22 Plan of Care End Date 04/09/22 Therapeutic Interventions Therapeutic Interventions Home Exercise Program,Joint Mobilizations,Manual Therapy, Neuromuscular Re-education, Self-Care/Home Management,Soft Tissue Mobilization,Taping, Therapeutic Activities, Therapeutic Exercises Modalities Cold Pack/Ice Massage,Electric Stimulation,Hot Packs Next Visit Focus/Plan Next Note Type Treatment Note Next Visit Plan KT tape A/C jt; continue cervical AROM, shoulder AAROM, A/C gapping; progress shoulder strength as tolerated
--- NOTE | 2022-03-05 13:59 | PT.OTN ---
Current Diagnoses Foreign body in other parts of alimentary tract, initial encounter (03/05/22) Physical Therapy Treatment Note PT-OP-A Visit Information Start: 12/17/21 09:10 Freq: Status: Active Protocol: Document 03/05/22 09:00 AW (Rec: 03/05/22 11:15 AW [id number]) Out-Patient Physical Therapy Visit Information Visit Information Visit Type Discharge Summary Visit Start Time 10:30 Visit Stop Time 11:15 Total Visit Minutes 45 Visit Number 13/ before KX Evaluation Information Evaluation Date 12/17/21 PT-OP-B Current Condition Start: 12/17/21 09:10 Freq: Status: Active Protocol: Document 12/17/21 10:30 AW (Rec: 12/17/21 10:31 AW [id number]) Current Condition History of Current Condition Onset Date September 2021 Current Complaints right shoulder pain History of Current Condition Chana was pruning with long loppers ~45 minutes in early September. She noticed feeling wimpy and started to have pain later that day. She had neck, jaw, shoulder, and collarbone pain. She had difficulty swallowing. All symptoms other than shoulder pain dissipated within a day. She has history of cervical DDD and notes she hasn't been working out like she used to before COV. 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 She then noticed her axillary lymph nodes felt painful and lumpier than usual . Ice and heat have been somewhat effective. She has had one dry needling appointment with Dr. Cuenca and plans to do more. Prior Treatments and Tests No imaging. Dry needling one treatment on 12/06 - somewhat effective. Hopes to keep interventions as conservative as possible Future Testing and Treatments Planned Pt likely to continue with dry needling Treatment Goals Patient/Caregiver Goals Walking more. Doing more. Puttering around the yard and gardening without pain Prior Functional Status Baseline Function- ADL's Independent Baseline Function- Mobility Independent Baseline Function- Recreation/Hobbies Able to perform gardening tasks without pain Current Functional Impairments (Reported) Functional Limitations- Recreation/ Pain with gardening and self- Hobbies care tasks. PT-OP-C Subjective Start: 12/17/21 09:10 Freq: Status: Active Protocol: Document 03/05/22 09:00 AW (Rec: 03/05/22 13:51 AW [id number]) OP-PT Subjective Patient Comments Patient Comments I had a great massage yesterday. PT-OP-F Manual Assessment Start: 12/17/21 09:10 Freq: Status: Active Protocol: Document 12/17/21 10:30 AW (Rec: 12/17/21 12:52 AW [id number]) Manual Assessments Joint Mobility Assessment Joint Mobility Assessment GH inferior and posterior glides WNL bilaterally. Right A/C and S/C joints TTP. Clavicles and scapulae rotate WNL during UE elevation PT-OP-H Neuro Start: 12/17/21 09:10 Freq: Status: Active Protocol: Document 12/17/21 10:30 AW (Rec: 12/17/21 12:47 AW [id number]) Sensation Evaluation Gross Sensation Gross Sensation WNL Deep Tendon Reflex & Clonus Assessment Deep Tendon Reflex Bilateral Bicep Deep Tendon Reflex 1+ Diminished PT-OP-J Posture/Palpation/Skin Start: 12/17/21 09:10 Freq: Status: Active Protocol: Document 12/17/21 10:30 AW (Rec: 12/17/21 12:51 AW [id number]) Posture Evaluation Position Sitting Head/C-Spine Posture Forward Head Shoulder Posture (L) Elevated,(R) Elevated Palpation Assessment Location scalenes, SCM, UT Palpation Findings Soft Tissue Tightness Palpation Details Increased tone especially with right side scalenes and SCM. UT with increased tone bilaterally PT-OP-K Range of Motion Start: 12/17/21 09:10 Freq: Status: Active Protocol: Document 12/17/21 10:30 AW (Rec: 12/17/21 12:47 AW [id number]) Cervical Spine Range of Motion Cervical Spine Active Testing Position Sitting Flexion 39 Extension 40 Rotation Left 50 Rotation Right 50 Lateral Flexion Left 30 Lateral Flexion Right 20 ROM Limitations Soft Tissue Tightness,Pain Comments Right lateral flexion painful Shoulder Goniometric Range of Motion Shoulder Right Shoulder ROM WFL Yes Testing Position Sitting Flexion 170 Abduction 180 External Rotation at 0 degrees Abduction 65 Internal Rotation Behind Back (text) T6 Comments Internal rotation painful at end range on the right left Shoulder ROM WFL Yes Testing Position Sitting Flexion 170 Abduction 180 External Rotation at 0 degrees Abduction 70 Internal Rotation Behind Back (text) T8 Shoulder ROM Limitations Shoulder ROM Limitations Pain Elbow/Forearm Range of Motion Elbow/Forearm bilat Comments WNL. No pain with AROM or PROM PT-OP-L Special Tests Start: 12/17/21 09:10 Freq: Status: Active Protocol: Document 12/17/21 10:30 AW (Rec: 12/17/21 12:54 AW [id number]) Special Tests Cervical Spine Special Tests Spurling's Test Test Results negative bilaterally Shoulder Special Tests Dupont Augie Impingement Test Results vaguely positive right side AC Joint Compression Test Results positive right side PT-OP-M Strength Start: 12/17/21 09:10 Freq: Status: Active Protocol: Document 12/17/21 10:30 AW (Rec: 12/17/21 12:54 AW [id number]) Shoulder Strength Shoulder Manual Muscle Testing bilat Flexion 5 Normal Extension 5 Normal Abduction (C5) 5 Normal External Rotation 4+ Good+ Internal Rotation 5 Normal Comments MMT consistent side to side but painful in resisted ER on the right only Elbow/Forearm Strength Elbow and Forearm Manual Muscle Testing bilat Flexion (C6) 5 Normal Extension (C7) 5 Normal PT-OP-Q Treatments Start: 12/17/21 09:10 Freq: Status: Active Protocol: Document 03/05/22 09:00 AW (Rec: 03/05/22 11:15 AW [id number]) Therapeutic Exercises Supine Exercises supine LT recruitment Supine Exercise Name supine LT recruitment Comments HEP review diaphragmatic breathing Supine Exercise Name diaphragmatic breathing Side bilateral Reps/Minutes 2 min Comments during stretches Prone Exercises horizontal abduction Prone Exercise Name horizontal abduction Side right Resistance AROM Comments slight irritation GH extension Prone Exercise Name GH extension/superman Side bilateral Resistance AROM Reps/Minutes 5SH x 15 Comments good strech in front Sidelying Exercises open book Sidelying Exercise Name open book Side right Resistance AROM Comments avoids end range but ok otherwise Standing Exercises pendulum Standing Exercise Name pendulum Side right Comments cw/ccw; HEP review Manual Therapy Treatment Soft Tissue Mobilization UT, SCM, scalenes Body Location UT, SCM, scalenes, SCM - primarily right side Mobilization Type Rolling,Strumming,Sustained Pressure Intensity/Depth Moderate Body Position Hooklying Comments with contract/relax right lateral flexion which improved pain but did not improve ROM Joint Mobilizations scapulothoracic Joint scapulothoracic Direction inferior, medial Body Position Sidelying Comments grade II-III A/C and S/C Joint A/C only Comments gapping PT-OP-R Modalities Start: 12/17/21 09:10 Freq: Status: Active Protocol: Document 01/02/22 09:41 AW (Rec: 01/02/22 11:18 AW [id number]) Hot Pack/Cold Pack Treatment Cold Pack Location r shoulder Patient Position Hooklying Treatment Duration (minutes) 15 Patient Tolerance Good PT-OP-T Assessment and Plan Start: 12/17/21 09:10 Freq: Status: Active Protocol: Document 03/05/22 09:00 AW (Rec: 03/05/22 11:15 AW [id number]) Physical Therapy Assessment Goals Four Impairment difficulty with gardening tasks [facility] Goal (LTG) Pt will use long-handles loppers for pruning 30 minutes without increase in baseline pain. 02/12/22 - Slow progress LTG Duration 10 weeks - 02/25/22 Three Impairment cervical ROM Impairment limitation in lateral flexion primarily [facility] Goal (LTG) Pt will improve cervical lateral flexion to 30 degrees or greater bilaterally without increase in pain. 02/12/22 - ROM remains limited and painful LTG Duration 10 weeks - 02/25/22 Two Impairment QuickDash - 36% impaired [facility] Goal (LTG) Pt will score 15% or less on QuickDash as a measure of improved function in daily activities LTG Duration 10 weeks - 02/25/22 One Impairment Pt lacks HEP Short Term Goal (STG) Pt will be instructed in HEP for ROM, strength, and reduction in cervical/shoulder muscle tone STG Duration 5 weeks - 01/21/22 MET [facility] Goal (LTG) Pt will be independent with HEP to manage pain symptoms independently LTG Duration 10 weeks - 02/25/22 PROGRESSING Assessment Summary Assessment Reviewed HEP for discharge today. Pt reports slow improvement in symptoms but remains limited in cervical lateral flexion and rotation and has been unable to resume gardening tasks. She is committed to continuing walking for exercise and feels she may return to PT at some point. Physical Therapy Plan Discharge Physical Therapy Discharge Reasons Plateau in Progress Discharge Comments Pt has plateaued in progress and requests discharge. PT recommended looking for a PT with specific orthopedic or manual therapy certification if she wishes to continue PT at a later date.
== END 2022-03-06 13:29 ==
LOC: PHYS 10:30
PROVIDERS: Family Provider Family Medicine; PCP Family Medicine; Referring Provider Family Medicine; Visit Provider Family Medicine
DX: T18.8XXA Foreign body in other parts of alimentary tract, initial encounter (principal)
CPT/HCPCS: 97110; 97140; 97161; 97535

== ENCOUNTER → 2022-04-01 11:42 | Outpatient (CLI) | payer MEDICARE, OTHER, SELFPAY ==
[2022-04-01 13:12] LABS: Add Manual Diff / Slide Review NO; Basophils Absolute Auto 0 /uL (0-100); Basophils Percent Auto 0.5 % (0-2); Eosinophils Absolute Auto 100 /uL (0-450); Eosinophils Percent Auto 1.2 % (2-4); Hematocrit 40.5 % (36-46); Hemoglobin 13.9 g/dL (12.0-16.0); Lymphocytes Absolute Auto 1500 /uL (1100-4500); Lymphocytes Percent Auto 22.9 % (25-40); Mean Corpuscular HGB Conc 34.4 % (30-36); Mean Corpuscular Hemoglobin 31.5 PG (26-34); Mean Corpuscular Volume 91.3 fL (80-100); Monocytes Absolute Auto 500 /uL (0-900); Neutrophils Absolute Auto 4500 /uL (1500-7000); Neutrophils Percent Auto 68.4 % (50-75); Platelet Count 294 X10^3/uL (150-400); Red Blood Cell Count 4.43 X10^6/uL (4.0-5.2); Red Cell Distribution Width 12.6 % (11.6-14.8); White Blood Cell Count 6.5 X10^3/uL (4.5-11.0)
[2022-04-01 13:24] LABS: Alanine Aminotransferase 23 IU/L (<35); Albumin 4.1 g/dL (3.5-5.0); Albumin Globulin Ratio 1.9 (1.0-2.8); Alkaline Phosphatase 78 U/L (38-126); Aspartate Aminotransferase 31 IU/L (14-36); BUN Creatinine Ratio 17.6 (6-22); Bilirubin Total 0.5 mg/dL (0.2-1.3); Blood Urea Nitrogen 16 mg/dL (7-17); Calcium 9.2 mg/dL (8.4-10.2); Carbon Dioxide 28 mmol/L (22-32); Chloride 100 mmol/L (98-107); Cholesterol 205 mg/dL (140-199); Estimated Glomerular Filt Rate > 60 mL/min (>60); Globulin 2.2 g/dL (1.7-4.1); Glucose 97 mg/dL (80-110); HDL Cholesterol 52 mg/dL (40-60); HEMOLYSIS < 15 (0-50); LDL Cholesterol Calculated 135 mg/dL (<100); Potassium 4.5 mmol/L (3.4-5.1); Sodium 135 mmol/L (137-145); Total Protein 6.3 g/dL (6.3-8.2); Triglycerides 92 mg/dL (35-150)
[2022-04-01 13:33] LABS: Free T3, Triiodothyronine Free 3.98 pg/mL (2.77-5.27); Free T4, Direct Thyroxine 2.04 ng/dL (0.78-2.19)
[2022-04-01 13:48] LABS: Thyroid Stimulating Hormone < 0.015 uIU/mL (0.47-4.68)
== END ==
PROVIDERS: Family Provider Family Medicine; PCP Family Medicine; Referring Provider Family Medicine; Visit Provider Family Medicine
DX: E78.5 Hyperlipidemia, unspecified (principal); E89.0 Postprocedural hypothyroidism
CPT/HCPCS: 36415; 80053; 80061; 84439; 84443; 84481; 85025

== ENCOUNTER → 2022-09-16 09:46 | Outpatient (CLI) | payer MEDICARE, OTHER, SELFPAY | PROVIDERS: Family Provider Family Medicine; PCP Family Medicine; Referring Provider Family Medicine; Visit Provider Family Medicine ==

== ENCOUNTER → 2022-10-27 10:05 | Outpatient (CLI) | payer MEDICARE, OTHER, SELFPAY ==
--- NOTE | 2022-10-27 | DI.MG.S_ITS ---
BILATERAL DIGITAL SCREENING MAMMOGRAM 3D/2D WITH CAD POST LUMPECTOMY: 10/27/2022 CLINICAL: Routine screening. Personal history of right breast cancer. Comparison is made to exams dated: 10/23/2021 mammogram, 09/20/2020 mammogram, and 09/19/2019 mammogram - [facility]. Both breasts are heterogeneously dense, which may obscure small masses (category c / 51-75% glandular tissue). Current study was also evaluated with a Computer Aided Detection (CAD) system. There are benign vascular calcifications in the right breast. There also are benign post operative findings in the right breast. No significant masses, calcifications, or other findings are seen in either breast. There has been no significant interval change. IMPRESSION: BENIGN There is no mammographic evidence of malignancy. A 1 year screening mammogram is recommended. This exam was interpreted at Station ID: [id number]. NOTE: For mammograms, a report in lay terms will be sent to the patient. Approximately 15% of breast malignancies will not be visualized mammographically. In the management of a palpable breast mass, a negative mammogram must not discourage biopsy of a clinically suspicious lesion. Electronically Signed By: Vane camarillo/wellington:10/27/2022 10:32:24 copy to: LOU PACE letter sent: Normal Exam ACR BI-RADS Category 2: Benign Finding(s) 3342F
== END ==
PROVIDERS: Family Provider Family Medicine; PCP Family Medicine; Referring Provider Family Medicine; Visit Provider Family Medicine
DX: Z12.31 Encounter for screening mammogram for malignant neoplasm of breast (principal); Z85.3 Personal history of malignant neoplasm of breast
CPT/HCPCS: 77063; 77067

== ENCOUNTER → 2022-11-25 10:48 | Outpatient (CLI) | payer MEDICARE, OTHER, SELFPAY ==
[2022-11-25 12:15] LABS: COVID19 -Nasal RAPID Negative (Negative)
== END ==
PROVIDERS: Family Provider Family Medicine; PCP Family Medicine; Visit Provider Surgery
DX: Z01.812 Encounter for preprocedural laboratory examination (principal); Z20.822 Contact with and (suspected) exposure to COVID-19
CPT/HCPCS: 87635; C9803

== ENCOUNTER 2022-11-26 07:56 | Day surgery (SDC) | payer MEDICARE, OTHER, SELFPAY ==
[2022-11-26 08:42] VITALS: BP 112/72; PULSE 84; RESP 16; TEMP 36.4; O2SAT 97; BMI 22.4
--- NOTE | 2022-11-26 08:46 | PM.HP.1 ---
History of Present Illness History of Present Illness Date Patient Seen: 11/26/22 Time Patient Seen: 08:46 Chief complaint: SDC Narrative: last scope over 5 years ago. Had polyp on her first scope. No family history for colon cancer, no current symptoms. Patient History Medical History Allergic rhinitis Axillary lymphadenopathy Basal cell carcinoma Breast cancer (~03/2011) Bruxism, sleep-related Cervical somatic dysfunction Chronic neck pain Chronic right shoulder pain Cranial somatic dysfunction Depression Dizziness Ear pressure Encounter for annual physical exam Encounter for HCV screening test for high risk patient Hyperlipidemia Hypothyroidism Melanoma (2003) Muscle strain Screen for colon cancer Thoracic region somatic dysfunction Vitamin D deficiency Surgical History History of partial mastectomy of right breast (~04/2011) History of thyroidectomy (~2003) History of tonsillectomy and adenoidectomy (1959) Hx of hammer toe correction (1994) Hx of melanoma excision (2003) Status post breast biopsy Family & Social History Family History Father Brain cancer Skin cancer Mother Angina of effort Social History: household members spouse Tobacco & Substance use: Smoking Status Never smoker alcohol intake never alcohol intake frequency 0-2 drinks per day Substance Use Type does not use Meds Home Medications and Allergies Home Medications Medication Instructions Recorded Confirmed Type vitamin b12 PO 05/05/18 03/26/22 History omega-3 fatty acids 1,000 mg 1,000 mg PO DAILY 08/05/19 11/26/22 History capsule (Fish Oil Concentrate) ginkgo biloba 40 mg tablet 40 mg PO BID 09/27/20 11/26/22 History citalopram 40 mg tablet (Celexa) 40 mg PO QDAY #90 tabs 09/10/21 03/26/22 Rx Fernando Allergy 1 tab PO DAILY PRN Allergies 03/26/22 11/26/22 History levothyroxine 100 mcg tablet See Rx Instructions .Route 09/08/22 11/26/22 Rx .COMPLEX #90 tabs sodium,potassium,mag sulfates 17.5 See Rx Instructions PO .COMPLEX 09/25/22 Rx gram-3.13 gram-1.6 gram oral soln #354 mL (Suprep Bowel Prep Kit) Allergies Allergy/AdvReac Type Severity Reaction Status Date / Time azithromycin [AZITHROMYCIN] Allergy Severe angioedema Verified 11/26/22 08:36 Exam Const General: cooperative HENMT Head: normocephalic and atraumatic Eyes General: appearance normal, both eyes and all related structures Neck Neck: trachea midline Chest Chest: normal inspection of the chest Resp Effort & Inspection: normal respiratory effort and able to speak in complete sentences Cardio Rate: regular rate Rhythm: regular rhythm GI Palpation: soft Back/Spine/Pelvis Back: normal to inspection Skin General: no rashes or lesions noted Neuro General: patient alert, patient awake and patient oriented x3 Extrem General: full ROM Psych Appearance: grossly normal Judgment: judgment good Assessment & Plan Assessment & Plan narrative: colonoscopy for history of colon polyps using MAC for sedation COVID-19 COVID-19 status: Negative Time Spent With Patient Time with patient: less than 30 minutes Critical Care time: I spent a total of [] minutes of critical care time on this patient's care today; this time is exclusive of procedural time.
[2022-11-26] MEDS: LACTATED RINGERS 1,000 ML 42 ML IV (09:00)
--- NOTE | 2022-11-26 09:26 | PM.OP.COLON ---
Operative Date/Time/Diagnoses Date of procedure: 11/26/22 Time of procedure: 09:26 Pre-op diagnosis: History of colon polyps Post-op diagnosis: same Procedure & Clinicians Study performed: Colonoscopy under MAC Same procedure as scheduled: Yes Indications: History of colon polyps Surgeon: Laurie Buck Procedure Notes Procedure in detail: Preop diagnosis: History of colon polyps Postop diagnosis: Same Operative procedure: Colonoscopy under MAC Surgeon: Rosina Buck MD Findings: No polyps. Scant small diverticula in the descending colon Procedure: Patient placed in lateral position, rectal exam performed showing normal tone no masses. Colonoscope inserted into the rectum and advanced to ileocecal valve with minimal difficulty. Insufflation and extraction of the scope including a retroflex in the rectum had the above findings. Impression: No polyps identified. It has been over 15 years since a single polyp was identified. Plan: Repeat colonoscopy in 10 years unless otherwise indicated by change in clinical condition Findings: divertiulosis Specimen(s): none sent Complications: none Post-procedure Recommendations: Colonoscopy in 10 years Follow up: as needed Disposition: PACU
[2022-11-26 09:34] VITALS: BP 111/64; PULSE 68; RESP 19; TEMP 36.4; O2SAT 97
[2022-11-26 09:39] VITALS: BP 110/64; PULSE 68; RESP 15; TEMP 36.3; O2SAT 98
[2022-11-26 09:44] VITALS: BP 110/65; PULSE 68; RESP 19; TEMP 36.4; O2SAT 98
[2022-11-26 09:50] VITALS: BP 120/75; PULSE 68; RESP 18; TEMP 36.7; O2SAT 96
== END 2022-11-26 10:04 | disposition home or self-care (01) ==
PROVIDERS: Family Provider Family Medicine; PCP Family Medicine; Referring Provider Surgery; Visit Provider Surgery
PROC: 0DJD8ZZ Inspection of Lower Intestinal Tract, Via Natural or Artificial Opening Endoscopic (ICD-10-PCS; CPT 45378; principal; 2022-11-26 09:15)
DX: Z12.11 Encounter for screening for malignant neoplasm of colon (principal); Z86.010 Personal history of colon polyps; K57.30 Diverticulosis of large intestine without perforation or abscess without bleeding
CPT/HCPCS: G0105; J2704

== ENCOUNTER → 2023-02-05 09:28 | Outpatient (CLI) | payer MEDICARE, OTHER, SELFPAY ==
[2023-02-05 10:21] LABS: Add Manual Diff / Slide Review NO; Basophils Absolute Auto 0 /uL (0-100); Basophils Percent Auto 0.6 % (0-2); Eosinophils Absolute Auto 100 /uL (0-450); Eosinophils Percent Auto 1.9 % (2-4); Hematocrit 42.3 % (36-46); Hemoglobin 14.2 g/dL (12.0-16.0); Lymphocytes Absolute Auto 1600 /uL (1100-4500); Lymphocytes Percent Auto 24.4 % (25-40); Mean Corpuscular HGB Conc 33.7 % (30-36); Mean Corpuscular Hemoglobin 30.5 PG (26-34); Mean Corpuscular Volume 90.5 fL (80-100); Monocytes Absolute Auto 500 /uL (0-900); Neutrophils Absolute Auto 4300 /uL (1500-7000); Neutrophils Percent Auto 65.1 % (50-75); Platelet Count 294 X10^3/uL (150-400); Red Blood Cell Count 4.67 X10^6/uL (4.0-5.2); White Blood Cell Count 6.6 X10^3/uL (4.5-11.0)
[2023-02-05 11:12] LABS: Alanine Aminotransferase 25 IU/L (<35); Albumin Globulin Ratio 1.4 (1.0-2.8); Alkaline Phosphatase 75 U/L (38-126); Aspartate Aminotransferase 31 IU/L (14-36); BUN Creatinine Ratio 19.8 (6-22); Bilirubin Total 0.6 mg/dL (0.2-1.3); Blood Urea Nitrogen 16 mg/dL (7-17); Calcium 9.3 mg/dL (8.4-10.2); Carbon Dioxide 31 mmol/L (22-32); Chloride 102 mmol/L (98-107); Cholesterol 193 mg/dL (140-199); Estimated Glomerular Filt Rate > 60 mL/min (>60); Globulin 2.8 g/dL (1.7-4.1); Glucose 94 mg/dL (80-110); HDL Cholesterol 46 mg/dL (40-60); HEMOLYSIS < 15 (0-50); LDL Cholesterol Calculated 127 mg/dL (<100); Potassium 4.8 mmol/L (3.4-5.1); Sodium 137 mmol/L (137-145); Total Protein 6.8 g/dL (6.3-8.2); Triglycerides 100 mg/dL (35-150)
[2023-02-05 11:40] LABS: Free T3, Triiodothyronine Free 4.11 pg/mL (2.77-5.27); Free T4, Direct Thyroxine 1.67 ng/dL (0.78-2.19)
[2023-02-05 11:57] LABS: Thyroid Stimulating Hormone < 0.015 uIU/mL (0.47-4.68)
== END ==
PROVIDERS: Family Provider Family Medicine; PCP Family Medicine; Referring Provider Family Medicine; Visit Provider Family Medicine
DX: E78.5 Hyperlipidemia, unspecified (principal); E89.0 Postprocedural hypothyroidism
CPT/HCPCS: 36415; 80053; 80061; 84439; 84443; 84481; 85025

== ENCOUNTER 2023-02-23 13:10 | Outpatient (RCR) | payer MEDICARE, OTHER, SELFPAY ==
--- NOTE | 2023-02-23 14:30 | ST.OPIE ---
Visit Care Team Role Provider Type Ronald Cuenca DO Attending Provider Physician Family Provider Primary Care Provider Referring Provider Specialty: Family Practice Address: [address] [place] [address], [id number] Email: Speech-Language Pathology Initial Evaluation POWDER [employer]ER Clinical Swallow Evaluation Start: 02/25/23 14:12 Freq: Status: Active Protocol: Document 02/23/23 14:30 ZS (Rec: 02/25/23 14:30 ZS [id number]) Clinical Swallow Evaluation Session Time Visit Start Time 13:30 Visit Stop Time 14:15 Total Visit Minutes 45 Visit Information Visit Number Initial Evaluation Plan of Care Dates 02/23/2023 - 05/29/2023 Insurance Information Medicare Referral Referring Provider Dr. Cuenca Reason for Referral Difficulty swallowing medications and food sometimes Setting Assessment Location Outpatient Care Visit Type Note Type Initial evaluation Next Note Type Next Note Type Treatment Note Patient Information Identification Type Name History Chana is a 67-year-old female referred to speech therapy due to difficulty swallowing pills and dry solids. She has a history of chronic neck pain (degenerative disk disease), breast cancer, melanoma, depression, and hypothyroidism . She had a thyroidectomy in ~ 2003 and tonsillectomy and adenoidectomy in 1959. Colonoscopy in October 2022 was normal. Pt reported improved swallow with slight head turn to left or additional water. Difficulty with swallowing pills has been ongoing for the past ~20 years with increased difficulty as pill size increases. Swallowing worsened following injury to right shoulder in 2021 that resulted in tightness in her right shoulder and neck. Subjective Observations Chana arrived on time and ambulated to therapy room independently. She reported coming straight from her chiropractor's office so her right shoulder and neck are more relaxed than normal. Reported by Patient Other Symptoms Difficulty swallowing pills, Difficulty swallowing solids Current Diet Regular,Thin liquids Baseline Feeding Method Independent in self-feeding Objective Assessment Mental Status Alert,Responsive,Cooperative Oral Integrity WFL Dentition Within normal limits Observation of Lips at Rest Symmetrical Pucker Within normal limits Lip Retraction Within normal limits Alternating Pucker/Lip Retraction Within normal limits Observations of Tongue at Rest Involuntary movement(s) Tongue Protrusion Within normal limits Tongue Retraction Within normal limits Tongue Lateralization Within normal limits Jaw Function Within normal limits Observations of Jaw at Rest Within normal limits Jaw Opening Within normal limits Jaw Closing Within normal limits Nasality Within normal limits Phonation Within normal limits Respiratory Sufficiency Within normal limits Comment Pt exhibited symmetrical structures at rest and in motion. Tongue, lip, and jaw strength and ROM were WNL. Fasciculations observed in tongue and velum at rest. Dentition present and WNL, pt reported no difficulty with mastication. Recommend referral to neurology due to tongue and velar fasciculations, otherwise structure and function of oral mechanism appears WFL for the purposes of speech and swallowing. Food and Liquid Trials Position During Assessment Upright (90 degrees),In chair Liquids Trialed Thin Solids Trialed Puree,Dysphagia Mechanical, Mechanical Soft,Regular Administration Type Tea spoon,Cup single sip,Straw ,Self-feeding Oral Impairment Within normal limits Oral Phase Comments The pt exhibited no anterior loss of bolus and a/p propulsion WNL. Multiple swallows required to clear a bolus, but no oral residue observed following multiple swallows. Pharyngeal Impairment Within normal limits Pharyngeal Phase Comments No overt signs or symptoms of aspiration observed with PO trials whether head turn was used or not, though cannot rule out silent aspiration with clinical swallow assessment. Pt reports foods and pills sticking in her throat and pointed to mid- throat area. Unable to visualize this area with clinical swallow assessment. Recommend MBS to determine if structural or functional abnormalities are present based on reported challenges. Fatigue/Endurance Endurance WNL Results The pt presents with possible pharyngeal phase dysphagia, though MBS is need to confirm. Additionally tongue and velar fasciculations were observed when these structures were at rest. Tongue and velar fasciculations can be an indication of possible MS, ALS , or other neurological impairment. Recommend referral to neurologist to rule out neurological impact on swallow function. Recommend MBS to visualize pharyngeal structures and inform plan of care. Pt expressed understanding and agreement with plan of care. Findings Swallowing Function Dysphagia unspecified Impact on Safety and Functioning Risk for aspiration Recommendations Instrumental Assessment Yes Swallowing Treatment Yes Recommended Solids Regular Recommended Liquids Thin Medication Recommendations As Tolerated Referrals Recommended Referrals Neurology Education Patient/Caregiver Education Described results of evaluation,Patient expressed understanding of evaluation, Patient expressed agreement with goals & treatment plans, Patient requires further education/training Goals Short-term Goals 1. Pt to complete MBS to inform plan of care. 2. Pt to make appointment with neurologist to rule out neurological impact on swallowing.
--- NOTE | 2023-02-23 14:30 | ST.OPPOC ---
Physical, Occupational & Speech Therapy At [facility] Visit Care Team Role Provider Type Ronald Cuenca DO Attending Provider Physician Family Provider Primary Care Provider Referring Provider Address: [address] [place] [address], [id number] Speech Pathology Plan of Care Plan of Care Dates 02/23/2023 - 05/29/[address] Cuenca Patient History Chana is a 67-year-old female referred to speech therapy due to difficulty swallowing pills and dry solids. She has a history of chronic neck pain (degenerative disk disease), breast cancer, melanoma, depression, and hypothyroidism. She had a thyroidectomy in ~2003 and tonsillectomy and adenoidectomy in 1959. Colonoscopy in October 2022 was normal. Pt reported improved swallow with slight head turn to left or additional water. Difficulty with swallowing pills has been ongoing for the past ~20 years with increased difficulty as pill size increases. Swallowing worsened following injury to right shoulder in 2021 that resulted in tightness in her right shoulder and neck. Short-term Goals 1. Pt to complete MBS to inform plan of care. 2. Pt to make appointment with neurologist to rule out neurological impact on swallowing. Comment: Electronically Signed by: DEB De Jesus 02/25/23 2727 If you are in agreement with this Plan of Care, please return a signed and dated copy. I have reviewed this Plan of Care and certify that the skilled therapy services above are required to meet the patient?s needs. Physician Signature Date Printed Name and Credentials Clinical Instructor Signature Printed Name and Credentials
--- NOTE | 2023-04-20 15:27 | ST.OPDS ---
Visit Care Team Role Provider Type Ronald Cuenca DO Attending Provider Physician Family Provider Primary Care Provider Referring Provider Address: [address] [place] [address], [id number] BRAILLE CODER Treatment Note BRAILLE CODER Treatment Note Start: 04/20/23 15:26 Freq: Status: Active Protocol: Document 04/20/23 15:26 ZS (Rec: 04/20/23 15:27 ZS [id number]) Speech Pathology Treatment Note Visit Information Plan of Care Dates 02/23/2023 - 05/29/2023 Insurance Information Medicare Setting Treatment Setting Outpatient Care Visit Type Note Type Discharge Summary General Information Patient History Chana is a 67-year-old female referred to speech therapy due to difficulty swallowing pills and dry solids. She has a history of chronic neck pain (degenerative disk disease), breast cancer, melanoma, depression, and hypothyroidism . She had a thyroidectomy in ~ 2003 and tonsillectomy and adenoidectomy in 1959. Colonoscopy in October 2022 was normal. Pt reported improved swallow with slight head turn to left or additional water. Difficulty with swallowing pills has been ongoing for the past ~20 years with increased difficulty as pill size increases. Swallowing worsened following injury to right shoulder in 2021 that resulted in tightness in her right shoulder and neck. The pt presents with possible pharyngeal phase dysphagia, though MBS is need to confirm. Additionally tongue and velar fasciculations were observed when these structures were at rest. Tongue and velar fasciculations can be an indication of possible MS, ALS , or other neurological impairment. Recommend referral to neurologist to rule out neurological impact on swallow function. Recommend MBS to visualize pharyngeal structures and inform plan of care. Pt expressed understanding and agreement with plan of care. Objective Short Term Goals 1. Pt to complete MBS to inform plan of care. 2. Pt to make appointment with neurologist to rule out neurological impact on swallowing. Treatment Activities Discharging from speech therapy as does not have staff to accommodate pt on caseload at this time. Pt will be placed on a wait list and contacted when has staff to accommodate pt on schedule. Plan Therapy Recommendations Discharge from Speech Therapy Reason for Discharge does not have staff to accommodate pt on schedule.
== END 2023-04-24 15:14 ==
LOC: SP 13:10
PROVIDERS: Absent Provider Family Medicine; Family Provider Family Medicine; PCP Family Medicine; Referring Provider Family Medicine; Visit Provider Family Medicine
DX: R19.8 Other specified symptoms and signs involving the digestive system and abdomen (principal)
CPT/HCPCS: 92610

== ENCOUNTER → 2023-03-09 09:38 | Outpatient (CLI) | payer MEDICARE, OTHER, SELFPAY ==
--- NOTE | 2023-03-09 09:39 | DI.RAD.S_ITS ---
PROCEDURE: FL BARIUM SWALLOW INDICATIONS: swallow problem COMPARISON: None. FINDINGS: Function: There is normal esophageal peristalsis. Elicited gastroesophageal reflux was seen to the midesophagus. Patient had difficulty swallowing a calibrated barium tablet, with the tablet lodged in the hypopharynx and unable to pass the upper esophageal sphincter for multiple attempts. Eventually, the tablet passed through the upper esophageal sphincter and through the remainder of the esophagus without difficulty. Morphology: Air-contrast images demonstrate normal mucosal morphology. Single contrast views show no esophageal strictures, extrinsic mass effects, or diverticula. Limited images of the stomach demonstrate normal appearance. IMPRESSION: 1. Patient had difficulty swallowing a calibrated barium tablet beyond the upper esophageal sphincter. The mid to lower esophagus is normal in size without stricture. Consider speech pathology consultation for further evaluation with swallowing difficulties. 2. Elicited gastroesophageal reflux into the mid esophagus. Approved by: Gus Ponce M.D. on 03/09/2023 at 11:59
== END ==
PROVIDERS: Family Provider Family Medicine; PCP Family Medicine; Referring Provider Family Medicine; Visit Provider Family Medicine
DX: R13.10 Dysphagia, unspecified (principal); K21.9 Gastro-esophageal reflux disease without esophagitis; R19.8 Other specified symptoms and signs involving the digestive system and abdomen
CPT/HCPCS: 74220

== ENCOUNTER → 2023-11-18 10:50 | Outpatient (CLI) | payer MEDICARE, OTHER, SELFPAY ==
--- NOTE | 2023-11-18 | DI.MG.S_ITS ---
BILATERAL DIGITAL SCREENING MAMMOGRAM 3D/2D WITH CAD: 11/18/2023 CLINICAL: Routine screening. Personal history of right breast cancer. Comparison is made to exams dated: 10/27/2022 mammogram, 10/23/2021 mammogram, and 09/20/2020 mammogram - [facility]. Both breasts are heterogeneously dense, which may obscure small masses (category c / 51-75% glandular tissue). Current study was also evaluated with a Computer Aided Detection (CAD) system. There are benign vascular calcifications in both breasts. There also are benign post operative findings in the right breast. No significant masses, calcifications, or other findings are seen in either breast. There has been no significant interval change. IMPRESSION: BENIGN There is no mammographic evidence of malignancy. A 1 year screening mammogram is recommended. This exam was interpreted at Station ID: [id number]. NOTE: For mammograms, a report in lay terms will be sent to the patient. Approximately 15% of breast malignancies will not be visualized mammographically. In the management of a palpable breast mass, a negative mammogram must not discourage biopsy of a clinically suspicious lesion. Electronically Signed By: Benjamín grover/wellington:11/18/2023 16:10:48 copy to: LOU PACE letter sent: Normal Exam ACR BI-RADS Category 2: Benign Finding(s) [id number]
== END ==
PROVIDERS: Family Provider Family Medicine; PCP Family Medicine; Referring Provider Family Medicine; Visit Provider Family Medicine
DX: Z12.31 Encounter for screening mammogram for malignant neoplasm of breast (principal); Z85.3 Personal history of malignant neoplasm of breast
CPT/HCPCS: 77063; 77067

== ENCOUNTER → 2023-11-18 13:37 | Outpatient (CLI) | payer MEDICARE, OTHER, SELFPAY | PROVIDERS: Family Provider Family Medicine; PCP Family Medicine; Referring Provider Family Medicine; Visit Provider Family Medicine | DX: I49.3 Ventricular premature depolarization (principal); R42 Dizziness and giddiness | CPT/HCPCS: 93242 ==

== ENCOUNTER → 2024-03-09 10:35 | Outpatient (CLI) | payer MEDICARE, OTHER, SELFPAY ==
[2024-03-09 11:21] LABS: Add Manual Diff / Slide Review NO; Basophils Absolute Auto 100 /uL (0-100); Basophils Percent Auto 0.9 % (0-2); Eosinophils Absolute Auto 100 /uL (0-450); Eosinophils Percent Auto 1.5 % (2-4); Hemoglobin 13.9 g/dL (12.0-16.0); Lymphocytes Absolute Auto 1800 /uL (1100-4500); Lymphocytes Percent Auto 29.2 % (25-40); Mean Corpuscular Hemoglobin 31.3 PG (26-34); Monocytes Absolute Auto 400 /uL (0-900); Monocytes Percent Auto 6.9 % (3-14); Neutrophils Absolute Auto 3900 /uL (1500-7000); Neutrophils Percent Auto 61.5 % (50-75); Platelet Count 289 X10^3/uL (150-400); Red Blood Cell Count 4.45 X10^6/uL (4.0-5.2); Red Cell Distribution Width 12.8 % (11.6-14.8); White Blood Cell Count 6.3 X10^3/uL (4.5-11.0)
[2024-03-09 11:53] LABS: Alanine Aminotransferase 18 IU/L (<35); Albumin 3.9 g/dL (3.5-5.0); Albumin Globulin Ratio 1.4 (1.0-2.8); Alkaline Phosphatase 83 U/L (38-126); Aspartate Aminotransferase 27 IU/L (14-36); BUN Creatinine Ratio 18.8 (6-22); Bilirubin Total 0.5 mg/dL (0.2-1.3); Blood Urea Nitrogen 15 mg/dL (7-17); Calcium 9.5 mg/dL (8.4-10.2); Carbon Dioxide 30 mmol/L (22-32); Chloride 105 mmol/L (98-107); Cholesterol 217 mg/dL (140-199); Estimated Glomerular Filt Rate > 60 mL/min (>60); Globulin 2.8 g/dL (1.7-4.1); Glucose 94 mg/dL (80-110); HDL Cholesterol 56 mg/dL (40-60); HEMOLYSIS 17 (0-50); LDL Cholesterol Calculated 135 mg/dL (<100); Potassium 4.3 mmol/L (3.4-5.1); Sodium 137 mmol/L (137-145); Total Protein 6.7 g/dL (6.3-8.2); Triglycerides 128 mg/dL (35-150)
[2024-03-09 12:07] LABS: Vitamin D 25 Hydroxy (D3) 81.9 ng/mL (30.0-100.0)
[2024-03-09 12:20] LABS: TSH w/ Reflex to FT4 < 0.02 uIU/mL (0.47-4.68)
[2024-03-11 03:55] LABS: Free T4, Direct Thyroxine 1.99 ng/dL (0.78-2.19)
== END ==
PROVIDERS: Family Provider Family Medicine; PCP Family Medicine; Referring Provider Family Medicine; Visit Provider Family Medicine
DX: E78.5 Hyperlipidemia, unspecified (principal); E55.9 Vitamin D deficiency, unspecified; E03.9 Hypothyroidism, unspecified
CPT/HCPCS: 36415; 80053; 80061; 82306; 84439; 84443; 85025

== ENCOUNTER → 2024-11-18 11:46 | Outpatient (CLI) | payer MEDICARE, OTHER, SELFPAY ==
[2024-11-18 13:51] LABS: Thyroid Stimulating Hormone 0.087 uIU/mL (0.47-4.68)
== END ==
LOC: LAB 11:47
PROVIDERS: Family Provider Family Medicine; PCP Family Medicine; Referring Provider Family Medicine; Visit Provider Family Medicine
DX: E03.9 Hypothyroidism, unspecified (principal)
CPT/HCPCS: 84443

== ENCOUNTER → 2024-11-25 12:33 | Outpatient (CLI) | payer MEDICARE, OTHER, SELFPAY ==
--- NOTE | 2024-11-25 12:35 | DI.MG.S_ITS ---
BILATERAL DIGITAL SCREENING MAMMOGRAM 3D/2D WITH CAD: 11/25/2024 CLINICAL: Routine screening. Personal history of right breast cancer. Comparison is made to exams dated: 11/18/2023 mammogram, 10/27/2022 mammogram, 10/23/2021 mammogram, 09/20/2020 mammogram, 09/19/2019 mammogram, and 09/03/2018 mammogram - [facility]. The breasts are heterogeneously dense, which may obscure small masses (category c / 51-75% glandular tissue). Current study was also evaluated with a Computer Aided Detection (CAD) system. There are benign vascular calcifications in both breasts. There also are benign post operative findings in the right breast. No significant masses, calcifications, or other findings are seen in either breast. There has been no significant interval change. IMPRESSION: BENIGN There is no mammographic evidence of malignancy. A 1 year screening mammogram is recommended. This exam was interpreted at Station ID: [id number]. NOTE: For mammograms, a report in lay terms will be sent to the patient. Approximately 15% of breast malignancies will not be visualized mammographically. In the management of a palpable breast mass, a negative mammogram must not discourage biopsy of a clinically suspicious lesion. Electronically Signed By: Liana Mcdaniel M.D., Ph.D. kamran/wellington:11/28/2024 04:55:02 copy to: LOU PACE letter sent: Normal Exam ACR BI-RADS Category 2: Benign
== END ==
PROVIDERS: Family Provider Family Medicine; PCP Family Medicine; Referring Provider Family Medicine; Visit Provider Family Medicine
DX: Z12.31 Encounter for screening mammogram for malignant neoplasm of breast (principal); Z85.3 Personal history of malignant neoplasm of breast; R92.333 Mammographic heterogeneous density, bilateral breasts
CPT/HCPCS: 77063; 77067

== ENCOUNTER → 2025-02-15 15:17 | Outpatient (CLI) | payer MEDICARE, OTHER, SELFPAY ==
[2025-02-15 17:10] LABS: TSH w/ Reflex to FT4 0.56 uIU/mL (0.47-4.68)
== END ==
PROVIDERS: Family Provider Family Medicine; PCP Family Medicine; Referring Provider Family Medicine; Visit Provider Family Medicine
DX: E03.9 Hypothyroidism, unspecified (principal)
CPT/HCPCS: 36415; 84443